=== PATIENT | male | born 1935 | race Two or more races ===

== ENCOUNTER → 2016-06-08 | Outpatient (CLI) | payer MEDICARE ==
[~2016-06-08] MED LIST: AMLODIPINE BESYL5 MG ORAL; DALIRESP500 MCG PO; DIOVAN320 MG ORAL; DYMISTA NASAL S23 GM NS; MORPHINE SULFAT30 M7 PO; PROMETHAZI6.25 MG/1 ORAL; SYMBICORT 1601 PUFFS INH; TAMSULOSIN HCL0.4 MG ORAL; VERAMYST10 GM NS; ZOFRAN2 MG/1 M1 IV
--- NOTE | 2016-06-08 16:18 | Diagnostic Imaging Report ---
Indication: SOB Technique: Two views of the chest Comparison: 10/04/2013 Findings: Lungs and pleural spaces are clear. Heart size is normal. There are degenerative changes of the thoracic spine. There are surgical clips in the region of the gastroesophageal junction Impression: No acute process
== END | disposition home or self-care (01) ==
LOC: RAD 14:38
DX: R05 Cough (principal); R06.02 Shortness of breath
CPT/HCPCS: 71020

== ENCOUNTER 2017-03-09 15:29 | Outpatient (CLI) | payer MEDICARE ==
--- NOTE | 2017-03-09 17:16 | Diagnostic Imaging Report ---
Indication: COUGH Technique: Two views of the chest Comparison: 06/08/2016 Findings: Lungs and pleural space are clear. Heart size is normal. Surgical clips are seen in the region of the gastroesophageal junction, also evident previously. No significant change Impression: No acute process
== END 2017-03-09 17:29 | disposition home or self-care (01) ==
LOC: RAD 15:29
DX: R05 Cough (principal); Z88.8 Allergy status to other drugs, medicaments and biological substances
CPT/HCPCS: 71020

== ENCOUNTER 2017-06-16 16:01 | Inpatient (IN) | payer MEDICARE ==
[~2017-06-16] VITALS: Ht 172.7 cm; Wt 80.7 kg
[2017-06-16 20:00] VITALS: BP 142/79
[2017-06-16] MEDS ORDERED: Promethazine Plain 6.25mg/5ml ORAL PRN (20:15)
[2017-06-16] MEDS: Tamsulosin 0.4mg cap ORAL SCH (22:23)
[2017-06-16] MEDS: Morphine Sulfate 2mg/ml Inj IVP PRN (22:24)
[2017-06-17] VITALS: BP 146/77
[2017-06-17 07:52] LABS: HEMATOCRIT 43.4 % (42.0-52.0); MEAN CORPUSCULAR VOLUME 91 FL (80-99); PLATELET COUNT 139 K/UL (150-450); RED BLOOD COUNT 4.75 M/UL (4.70-6.10); RED CELL DISTRIBUTION WIDTH 12.5 % (11.6-14.8); WHITE BLOOD COUNT 2.6 K/UL (4.8-10.8)
[2017-06-17 08:00] VITALS: BP 123/55
[2017-06-17 08:13] LABS: ALANINE AMINOTRANSFERASE 12 U/L (12-78); ALBUMIN 3.2 G/DL (3.4-5.0); ALKALINE PHOSPHATASE 82 U/L (46-116); ANION GAP 9 mmol/L (5-15); ASPARTATE AMINO TRANSFERASE 13 U/L (15-37); BILIRUBIN,TOTAL 0.4 MG/DL (0.2-1.0); BLOOD UREA NITROGEN 15 mg/dL (7-18); CARBON DIOXIDE 23 MMOL/L (21-32); CHLORIDE 110 MMOL/L (98-107); CREATININE 1.6 MG/DL (0.55-1.30); POTASSIUM 4.1 MMOL/L (3.5-5.1); SODIUM 142 MMOL/L (136-145)
[2017-06-17] MEDS ORDERED: Irbesartan 150mg tablet ORAL SCH (09:00)
[2017-06-17] MEDS: Irbesartan 150mg tablet ORAL SCH (09:30)
[2017-06-17] MEDS: Flonase Nasal Inhaler 16gm NASAL SCH (09:31)
[2017-06-17] MEDS: Morphine Sulfate 2mg/ml Inj IVP PRN (11:27)
[2017-06-17 12:00] VITALS: BP 126/60
[2017-06-17] MEDS ORDERED: Morphine Sulfate 4mg/ml Inj IVP PRN (13:15)
[2017-06-17 16:00] VITALS: BP 121/53
[2017-06-17] MEDS: Morphine Sulfate 4mg/ml Inj IVP PRN ×2 (18:09→22:21)
[2017-06-17 20:00] VITALS: BP 133/70
[2017-06-17] MEDS: Tamsulosin 0.4mg cap ORAL SCH (21:40)
[2017-06-18] VITALS: BP 127/81
[2017-06-18 04:00] VITALS: BP 140/71
[2017-06-18 08:00] VITALS: BP 147/82
--- NOTE | 2017-06-18 08:30 | General Progress Note ---
Assessment/Plan Problem List: (1) PNA (pneumonia) ICD Codes: J18.9 - PNA (pneumonia) SNOMED: 979844736 (2) Diabetes mellitus ICD Codes: E11.9 - Diabetes mellitus SNOMED: 09059034 (3) COPD (chronic obstructive pulmonary disease) with emphysema ICD Codes: J43.8 - COPD (chronic obstructive pulmonary disease) with emphysema SNOMED: 03636035 (4) Back pain ICD Codes: M54.9 - Back pain SNOMED: 577458505 (5) severe neck pain Status: stable, progressing Assessment/Plan iv pain rx adjusted mri neck pain management eval ? pt/ot Subjective ROS Limited/Unobtainable: No Constitutional: Reports: malaise, weakness HEENT: Reports: no symptoms Cardiovascular: Reports: no symptoms Respiratory: Reports: cough Gastrointestinal/Abdominal: Reports: no symptoms Genitourinary: Reports: no symptoms Neurologic/Psychiatric: Reports: no symptoms Endocrine: Reports: no symptoms Hematologic/Lymphatic: Reports: no symptoms Allergies: Coded Allergies: ACETAMINOPHEN (Unverified Allergy, Unknown, Shortness of Breath, 10/03/13) shortness of breath and hives CODEINE (Unverified Allergy, Unknown, Shortness of Breath, 10/03/13) sob and hives HYDROCODONE (Unverified Allergy, Unknown, Shortness of Breath, 10/03/13) shortness of breath and hives All Systems: reviewed and negative except above Subjective no events. w/o complaints. morphine makes pt dizzy. no cp.sob still with severe neck pain. Objective Last 24 Hour Vital Signs Date Time Temp Pulse Resp B/P (MAP) Pulse Ox O2 Delivery O2 Flow Rate FiO2 06/18/17 04:00 97.3 61 20 140/71 99 06/18/17 00:00 97.9 61 21 127/81 98 06/17/17 21:03 63 18 97 Room Air 21 06/17/17 20:58 63 18 97 Room Air 21 06/17/17 20:00 98.3 58 21 133/70 98 06/17/17 16:00 98.1 61 18 121/53 97 06/17/17 12:00 98.2 68 18 126/60 97 06/17/17 09:43 63 18 96 Room Air 21 06/17/17 09:43 63 18 96 Room Air 21 06/17/17 09:30 123/55 06/17/17 09:30 66 123/55 Intake and Output 06/17/17 06/18/17 19:00 07:00 Intake Total 800 ml Balance 800 ml Intake Oral 800 ml # Voids 3 2 Height (Feet): 5 Height (Inches): 8.00 Weight (Pounds): 178 General Appearance: WD/WN, alert Neck: supple, pain on motion, stiff neck, tenderness Cardiovascular: regular rhythm Respiratory/Chest: chest wall non-tender, lungs clear, no respiratory distress Abdomen: normal bowel sounds, non tender, soft Edema: no edema noted Arm (L), no edema noted Arm (R), no edema noted Leg (L), no edema noted Leg (R), no edema noted Pedal (L), no edema noted Pedal (R), no edema noted Generalized SHAD LAGUNAS Jun 18, 2017 08:30
[2017-06-18] MEDS: Irbesartan 150mg tablet ORAL SCH (09:34)
[2017-06-18] MEDS: Flonase Nasal Inhaler 16gm NASAL SCH (09:34)
[2017-06-18] MEDS: HYDROmorphone 1mg/ml Carpuject IVP PRN ×2 (11:03→21:51)
[2017-06-18 12:00] VITALS: BP 144/82
[2017-06-18 16:00] VITALS: BP 124/54
[2017-06-18 20:00] VITALS: BP 143/79
[2017-06-18] MEDS: Tamsulosin 0.4mg cap ORAL SCH (21:52)
[2017-06-18] MEDS: Lactulose 20gm/30ml UDC ORAL PRN (21:52)
--- NOTE | 2017-06-18 23:05 | History and Physical Report ---
DATE OF ADMISSION: 06/16/2017 CHIEF COMPLAINT: Intractable neck pain. HISTORY OF PRESENT ILLNESS: The patient is a pleasant, 81-year-old male. He has a history of COPD, hypertension, and history of renal insufficiency. He has a history of severe degenerative arthritis and spinal stenosis. He presented initially for pain control because of severe intractable neck pain. The patient has a history of cervical spinal stenosis. He has multiple herniated discs. He has had worsening pain that was uncontrolled with oral pain medications. He has had some numbness and weakness in his arms. In light of these worsening symptoms, he is now admitted for further evaluation and care. He denies any falls or recent trauma. PAST MEDICAL HISTORY: As above. PAST SURGICAL HISTORY: Neck surgery. CURRENT MEDICATIONS: Reconciled and reviewed. ALLERGIES: None. SOCIAL HISTORY: The patient is a smoker. No alcohol. No drugs. FAMILY HISTORY: None. REVIEW OF SYSTEMS: GENERAL: No fever or chills. HEENT: Positive headaches and neck pain. CARDIOPULMONARY: No chest pain or shortness of breath. GASTROINTESTINAL: No nausea or vomiting. GENITOURINARY: No urgency or frequency. MUSCULOSKELETAL: Positive joint pains. NEUROLOGIC: No evidence of seizures. PHYSICAL EXAMINATION: VITAL SIGNS: Temperature 98.3 degrees, pulse 66, respirations 20, and blood pressure 123/55. GENERAL: The patient is a well developed and well nourished. NECK: Supple. There is limited range of motion because of pain. HEART: Regular rate and rhythm. LUNGS: Clear. ABDOMEN: Soft, nontender, and nondistended. EXTREMITIES: Without clubbing or cyanosis. LABORATORY DATA: White count was 2 and hemoglobin 15. Sodium 142 and creatinine is 1.6. A1c is 6.6. ASSESSMENT: This is a pleasant male, admitted with complaints of intractable neck pain secondary to degenerative disc disease and arthritis. He has renal insufficiency, hypertension, and chronic obstructive pulmonary disease. PLAN: IV pain medications. MRI of the neck. Pain management consultation for possible epidural. Continue outpatient cardiac regimen. Bill Jackson M.D. DR: Aleisha JOB#: [id number] CC:
[2017-06-19] VITALS: BP 152/78
[2017-06-19 04:00] VITALS: BP 131/62
[2017-06-19] MEDS: Irbesartan 150mg tablet ORAL SCH (08:43)
[2017-06-19] MEDS: HYDROmorphone 1mg/ml Carpuject IVP PRN ×3 (08:44→18:00)
[2017-06-19 08:46] VITALS: BP 159/81
[2017-06-19] MEDS ORDERED: Breo Ellipta 100/25mcg - 14 dose INH SCH (09:00)
[2017-06-19 09:34] LABS: BASOPHILS % (AUTO) 1.4 % (0.0-2.0); LYMPHOCYTES % (AUTO) 34.3 % (20.0-45.0); MEAN CORPUSCULAR VOLUME 93 FL (80-99); MONOCYTES % (AUTO) 10.2 % (1.0-10.0); NEUTROPHILS % (AUTO) 53.1 % (45.0-75.0); PLATELET COUNT 155 K/UL (150-450); RED BLOOD COUNT 4.75 M/UL (4.70-6.10); RED CELL DISTRIBUTION WIDTH 12.4 % (11.6-14.8); WHITE BLOOD COUNT 4.8 K/UL (4.8-10.8)
[2017-06-19 09:47] LABS: ALANINE AMINOTRANSFERASE 35 U/L (12-78); ALBUMIN 3.5 G/DL (3.4-5.0); ALKALINE PHOSPHATASE 110 U/L (46-116); ANION GAP 5 mmol/L (5-15); ASPARTATE AMINO TRANSFERASE 22 U/L (15-37); BILIRUBIN,TOTAL 0.7 MG/DL (0.2-1.0); BLOOD UREA NITROGEN 19 mg/dL (7-18); CALCIUM 9.3 MG/DL (8.5-10.1); CARBON DIOXIDE 29 MMOL/L (21-32); CHLORIDE 104 MMOL/L (98-107); CREATININE 1.7 MG/DL (0.55-1.30); POTASSIUM 4.3 MMOL/L (3.5-5.1); SODIUM 138 MMOL/L (136-145)
[2017-06-19 11:49] VITALS: BP 119/56
--- NOTE | 2017-06-19 12:53 | General Progress Note ---
Assessment/Plan Problem List: (1) PNA (pneumonia) ICD Codes: J18.9 - PNA (pneumonia) SNOMED: 103009933 (2) Diabetes mellitus ICD Codes: E11.9 - Diabetes mellitus SNOMED: 00342667 (3) COPD (chronic obstructive pulmonary disease) with emphysema ICD Codes: J43.8 - COPD (chronic obstructive pulmonary disease) with emphysema SNOMED: 83895725 (4) Back pain ICD Codes: M54.9 - Back pain SNOMED: 334249863 (5) severe neck pain Status: stable, progressing Assessment/Plan iv pain rx adjusted mri neck pain management eval ? cont resp care pt/ot Subjective ROS Limited/Unobtainable: No Constitutional: Reports: malaise, weakness HEENT: Reports: no symptoms Cardiovascular: Reports: no symptoms Respiratory: Reports: no symptoms Gastrointestinal/Abdominal: Reports: no symptoms Genitourinary: Reports: no symptoms Neurologic/Psychiatric: Reports: numbness, paresthesia, pre-existing deficit Endocrine: Reports: no symptoms Hematologic/Lymphatic: Reports: anemia Allergies: Coded Allergies: ACETAMINOPHEN (Unverified Allergy, Unknown, Shortness of Breath, 10/03/13) shortness of breath and hives CODEINE (Unverified Allergy, Unknown, Shortness of Breath, 10/03/13) sob and hives HYDROCODONE (Unverified Allergy, Unknown, Shortness of Breath, 10/03/13) shortness of breath and hives All Systems: reviewed and negative except above Subjective still with severe pain. on iv pain meds. weakness and numbness in left arm- chronic. Objective Last 24 Hour Vital Signs Date Time Temp Pulse Resp B/P (MAP) Pulse Ox O2 Delivery O2 Flow Rate FiO2 06/19/17 11:49 97.9 64 19 119/56 97 06/19/17 08:46 97.7 70 19 159/81 98 06/19/17 08:43 131/62 06/19/17 08:43 68 131/62 06/19/17 08:14 68 18 97 Room Air 21 06/19/17 08:12 68 18 97 Room Air 21 06/19/17 04:00 98 Room Air 06/19/17 04:00 97.6 68 21 131/62 98 06/19/17 00:00 97.9 73 21 152/78 97 06/19/17 00:00 97 Room Air 06/18/17 20:52 70 18 98 Room Air 21 06/18/17 20:51 70 18 98 Room Air 21 06/18/17 20:00 98.2 66 21 143/79 98 06/18/17 20:00 98 Room Air 06/18/17 16:00 97.9 59 18 124/54 Room Air Intake and Output 06/18/17 06/19/17 19:00 07:00 Intake Total 1400 ml Balance 1400 ml Intake Oral 1400 ml # Voids 12 4 Laboratory Tests 06/19/17 08:50: White Blood Count 4.8, Red Blood Count 4.75, Hemoglobin 15.0, Hematocrit 44.0, Mean Corpuscular Volume 93, Mean Corpuscular Hemoglobin 31.6H, Mean Corpuscular Hemoglobin Concent 34.1, Red Cell Distribution Width 12.4, Platelet Count 155, Mean Platelet Volume 8.5, Neutrophils (%) (Auto) 53.1, Lymphocytes (%) (Auto) 34.3, Monocytes (%) (Auto) 10.2H, Eosinophils (%) (Auto) 1.0, Basophils (%) ( Auto) 1.4, Sodium Level 138, Potassium Level 4.3, Chloride Level 104, Carbon Dioxide Level 29, Anion Gap 5, Blood Urea Nitrogen 19H, Creatinine 1.7H, Estimat Glomerular Filtration Rate , Glucose Level 128H, Calcium Level 9.3, Total Bilirubin 0.7, Aspartate Amino Transf (AST/SGOT) 22, Alanine Aminotransferase (ALT/SGPT) 35, Alkaline Phosphatase 110, Total Protein 7.0, Albumin 3.5, Globulin 3.5, Albumin/Globulin Ratio 1.0 Height (Feet): 5 Height (Inches): 8.00 Weight (Pounds): 178 Objective General Appearance: WD/WN, alert Neck: supple, pain on motion, stiff neck, tenderness Cardiovascular: regular rhythm Respiratory/Chest: chest wall non-tender, lungs clear, no respiratory distress Abdomen: normal bowel sounds, non tender, soft Edema: no edema noted Arm (L), no edema noted Arm (R), no edema noted Leg (L), no edema noted Leg (R), no edema noted Pedal (L), no edema noted Pedal (R), no edema noted Generalized SHAD LAGUNAS Jun 19, 2017 12:53
[2017-06-19] MEDS: Lactulose 20gm/30ml UDC ORAL PRN ×2 (12:56→18:14)
--- NOTE | 2017-06-19 13:16 | Diagnostic Imaging Report ---
Indication: 81-year-old male inpatient with severe neck pain, history of cervical spinal stenosis and prior spinal surgery Technique: Sagittal T1 FLAIR PROPELLER, sagittal T2 PROPELLOR, sagittal STIR, axial T2 PROPELLER, axial 3D COSMIC ASPIR images were obtained through the cervical spine Comparison: none Findings: Anterior fusion hardware with intervertebral screws are seen at C3, C4, C5. The hardware does Bridgette minimal susceptibility artifact which could obscure pathology. There is evidence of complete ankylosis of the C3-4 and C4-5 discs. The bony alignment is normal. The vertebral body marrow signal is normal. There is marked hypertrophy of the atlantoaxial ligament and possibly some erosion of the tip of the odontoid. Posterior to the C5 vertebral body. There are some small foci of high signal within the cord. The remainder of the intrinsic cord signal is normal At C2-3, there is posterior disc protrusion/osteophyte complex. This results in mild narrowing of the spinal canal, which is narrowed to an minimal 8 mm AP diameter. This is exacerbated by short pedicles. This is also exacerbated by ligamentum flavum hypertrophy. There is mild right, moderate to severe left neural foraminal stenosis at this level, predominantly due to facet arthrosis. Posterior to C3, C4, C5, there is diffuse narrowing of the spinal canal, which measures approximately 7 mm in AP diameter this area. This is predominantly due to short pedicles resulting in congenital canal narrowing, exacerbated to a slight extent by ligamentum flavum hypertrophy. This results in impingement upon the cord. No cerebrospinal fluid is seen surrounding the cord at these levels. Due to the prior surgery, no disc protrusion is demonstrated. At C3-4, there is mild bilateral neural foraminal stenosis due to facet arthrosis. At C4-5, there is minimal bilateral neural foraminal stenosis. At C5-6, the disc space is narrowed. There is posterior broad-based disc protrusion, mild, with associated osteophytes. This, in combination with the short pedicles results in mild narrowing of the spinal canal, to 8 mm AP dimension.. There is mild left neural foraminal stenosis. At C6-7, no significant disc bulge or protrusion. The disc space is preserved. The spinal canal remains narrowed due to short pedicles, measures proximally 8 mm AP dimension. There is mild bilateral neural foraminal stenosis at this level. At C7-T1, there is very mild circumferential annular bulge. The spinal canal is mildly narrowed at this level, measuring between 8 and 9 mm AP dimension. At this level, unlikely more superior levels, small amount of cerebrospinal fluid is seen surrounding the cord. The included extraspinal soft tissues are unremarkable. Due to the disc bulge as well as ligamentum flavum hypertrophy. Impression: Spinal stenosis extending from the level of the C2-3 disc to the bottom of C7, as described, with evidence of impingement of the cord between C3 and C5.. 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 Postsurgical changes as described, with evidence of prior anterior fusion of the C3, C4, C5. Apparent successful ankylosis of the discs. Foci of high signal within the cord posterior to the C5 vertebral body. Suspect on the basis of myelomalacia secondary to spinal stenosis. Other etiologies such as demyelinating disease also possible Multifocal neural foraminal stenoses, as detailed above Hypertrophy of the anterior atlantoaxial ligament. Possible associated erosion of the odontoid. This could indicate inflammatory arthropathy. This would be better characterized on CT if clinically indicated
[2017-06-19] MEDS: Flonase Nasal Inhaler 16gm NASAL SCH (15:40)
[2017-06-19 16:00] VITALS: BP 144/73
[2017-06-19 20:00] VITALS: BP 142/82
[2017-06-19] MEDS: Tamsulosin 0.4mg cap ORAL SCH (21:23)
[2017-06-20] VITALS: BP 155/54
[2017-06-20 04:00] VITALS: BP 158/70
[2017-06-20 08:00] VITALS: BP 143/91
[2017-06-20] MEDS: Flonase Nasal Inhaler 16gm NASAL SCH (09:00)
[2017-06-20] MEDS: Irbesartan 150mg tablet ORAL SCH (09:01)
[2017-06-20] MEDS: HYDROmorphone 1mg/ml Carpuject IVP PRN (09:46)
--- NOTE | 2017-06-20 10:11 | General Progress Note ---
Assessment/Plan Problem List: (1) PNA (pneumonia) ICD Codes: J18.9 - PNA (pneumonia) SNOMED: 016432695 (2) Diabetes mellitus ICD Codes: E11.9 - Diabetes mellitus SNOMED: 55419729 (3) COPD (chronic obstructive pulmonary disease) with emphysema ICD Codes: J43.8 - COPD (chronic obstructive pulmonary disease) with emphysema SNOMED: 10189778 (4) Back pain ICD Codes: M54.9 - Back pain SNOMED: 261735686 (5) severe neck pain Status: stable Assessment/Plan iv pain rx adjusted mri neck reviewed spine eval at [facility] at outpt cont resp care pt/ot Subjective ROS Limited/Unobtainable: No Constitutional: Reports: malaise, weakness HEENT: Reports: no symptoms Cardiovascular: Reports: no symptoms Respiratory: Reports: no symptoms Gastrointestinal/Abdominal: Reports: no symptoms Genitourinary: Reports: no symptoms Neurologic/Psychiatric: Reports: no symptoms Endocrine: Reports: no symptoms Hematologic/Lymphatic: Reports: anemia Allergies: Coded Allergies: ACETAMINOPHEN (Unverified Allergy, Unknown, Shortness of Breath, 10/03/13) shortness of breath and hives CODEINE (Unverified Allergy, Unknown, Shortness of Breath, 10/03/13) sob and hives HYDROCODONE (Unverified Allergy, Unknown, Shortness of Breath, 10/03/13) shortness of breath and hives All Systems: reviewed and negative except above Subjective still with severe pain. on iv pain meds. weakness and numbness in left arm- chronic. mri noted. has not seen spine as recommended. Objective Last 24 Hour Vital Signs Date Time Temp Pulse Resp B/P (MAP) Pulse Ox O2 Delivery O2 Flow Rate FiO2 06/20/17 09:01 143/91 06/20/17 09:00 86 143/91 06/20/17 08:00 98.1 86 20 143/91 95 06/20/17 04:00 98.4 70 20 158/70 95 06/20/17 00:00 97 Room Air 06/20/17 00:00 98.1 67 21 155/54 97 06/19/17 20:17 71 18 98 Room Air 21 06/19/17 20:16 71 18 98 Room Air 21 06/19/17 20:00 96 Room Air 06/19/17 20:00 97.0 66 20 142/82 96 06/19/17 18:30 97.8 06/19/17 16:00 97.8 74 19 144/73 96 06/19/17 11:49 97.9 64 19 119/56 97 Intake and Output 06/19/17 06/20/17 19:00 07:00 Intake Total 560 ml Balance 560 ml Intake Oral 560 ml # Voids 5 2 # Bowel Movements 2 3 Height (Feet): 5 Height (Inches): 8.00 Weight (Pounds): 178 Objective General Appearance: WD/WN, alert Neck: supple, pain on motion, stiff neck, tenderness Cardiovascular: regular rhythm Respiratory/Chest: chest wall non-tender, lungs clear, no respiratory distress Abdomen: normal bowel sounds, non tender, soft Edema: no edema noted Arm (L), no edema noted Arm (R), no edema noted Leg (L), no edema noted Leg (R), no edema noted Pedal (L), no edema noted Pedal (R), no edema noted Generalized SHAD LAGUNAS Jun 20, 2017 10:10
[2017-06-20 12:00] VITALS: BP 117/57
[2017-06-20 16:09] VITALS: BP 125/57
[2017-06-20] MEDS ORDERED: FLONASE1 SPRAYS NASAL (16:41)
[2017-06-20] MEDS ORDERED: IRBESARTAN300 MG ORAL (16:43)
[2017-06-20] MEDS ORDERED: LACTULOSE20 GM/301 ORAL (16:45)
[2017-06-20] MEDS ORDERED: PROTONIX40 MG ORAL (16:45)
[2017-06-20] MEDS ORDERED: TAMSULOSIN HCL0.4 MG ORAL (16:47)
--- NOTE | 2017-06-22 11:33 | Discharge Summary ---
Discharge Summary Hospital Course Date of Admission Jun 16, 2017 at 18:50 Date of Discharge Jun 20, 2017 at 18:58 Admitting Diagnosis HPI Mihir Cruz is a 81 year old male who was admitted on Jun 16, 2017 at 18:50 for Severe Neck Pain Hospital Course [id number] Discharge Discharge Disposition Patient was discharged to Home (01) Discharge Diagnoses: Davina Beck NP Jun 22, 2017 11:33
--- NOTE | 2017-06-23 04:00 | Discharge Summary 2 SIG ---
DATE OF ADMISSION: 06/16/2017 DATE OF DISCHARGE: 06/20/2017 BRIEF HOSPITAL COURSE: The patient is a pleasant 81-year-old male with a history of COPD, hypertension, and renal insufficiency. He has history of severe degenerative arthritis and spinal stenosis. He presented initially for pain control because of severe intractable neck pain. He had worsening of symptoms uncontrolled with oral pain medications. He had numbness and weakness in his arms. Because of worsening symptoms, he was admitted for further evaluation and care. He was given IV pain medications. MRI of the cervical spine showed spinal stenosis extending from the level of C2-C3 disc to the bottom of C7 with evidence of impingement of the cord between C3 and C5. Pain medications were adjusted. He was given physical therapy and occupational therapy. He was then advised to follow up for a spine evaluation at [facility] as outpatient. FINAL DIAGNOSES: 1. Intractable severe neck pain. 2. Chronic obstructive pulmonary disease. 3. Diabetes mellitus. DISPOSITION: The patient was discharged to acute rehab [facility]. DISCHARGE MEDICATIONS: Refer to medication list. Bill Jackson M.D. I have been assigned to dictate discharge summary on this account and I was not involved in the patient's management. Davina Beck N.P. DR: Jesus Manuel JOB#: [id number] CC:
== END 2017-06-20 18:58 | disposition home or self-care (01) | DRG 551 ==
LOC: 4E 18:50
DX: M50.30 Other cervical disc degeneration, unspecified cervical region (principal); J18.9 Pneumonia, unspecified organism; M48.02 Spinal stenosis, cervical region; E11.9 Type 2 diabetes mellitus without complications; J43.9 Emphysema, unspecified; M54.9 Dorsalgia, unspecified; F17.200 Nicotine dependence, unspecified, uncomplicated; Z88.6 Allergy status to analgesic agent; M46.92 Unspecified inflammatory spondylopathy, cervical region
CPT/HCPCS: 36415; 72141; 80053; 83036; 85007; 85025; 85651; 94640; J2405

== ENCOUNTER 2017-06-25 12:41 | Inpatient (IN) | payer MEDICARE ==
[~2017-06-25] VITALS: Ht 172.7 cm; Wt 81.2 kg
[~2017-06-25 12:41] MED LIST changes: +FLONASE1 SPRAYS NASAL; +IRBESARTAN300 MG ORAL; +LACTULOSE20 GM/301 ORAL; +PROTONIX40 MG ORAL
[2017-06-25] MEDS ORDERED: Lactulose 20gm/30ml UDC ORAL PRN (22:15)
[2017-06-25] MEDS: cefTRIAXone 1 GM in D5W 55 ML IVPB SCH (23:17)
[2017-06-25] MEDS: HYDROmorphone 1mg/ml Carpuject IVP PRN (23:26)
[2017-06-26] VITALS: BP 146/83
[2017-06-26 03:49] VITALS: BP 146/70
[2017-06-26 08:00] VITALS: BP 151/75
[2017-06-26 08:28] LABS: HEMATOCRIT 42.2 % (42.0-52.0); HEMOGLOBIN 14.4 G/DL (14.2-18.0); MEAN CORPUSCULAR VOLUME 92 FL (80-99); PLATELET COUNT 125 K/UL (150-450); RED BLOOD COUNT 4.57 M/UL (4.70-6.10); RED CELL DISTRIBUTION WIDTH 12.1 % (11.6-14.8); WHITE BLOOD COUNT 2.9 K/UL (4.8-10.8)
[2017-06-26] MEDS: HYDROmorphone 1mg/ml Carpuject IVP PRN ×2 (08:39→16:50)
[2017-06-26 09:15] LABS: ALANINE AMINOTRANSFERASE 29 U/L (12-78); ALBUMIN 2.9 G/DL (3.4-5.0); ALBUMIN/GLOBULIN RATIO 0.9 (1.0-2.7); ALKALINE PHOSPHATASE 90 U/L (46-116); ANION GAP 8 mmol/L (5-15); ASPARTATE AMINO TRANSFERASE 29 U/L (15-37); BILIRUBIN,TOTAL 0.3 MG/DL (0.2-1.0); BLOOD UREA NITROGEN 15 mg/dL (7-18); CALCIUM 8.7 MG/DL (8.5-10.1); CARBON DIOXIDE 28 MMOL/L (21-32); CHLORIDE 105 MMOL/L (98-107); CREATININE 1.6 MG/DL (0.55-1.30); POTASSIUM 4.1 MMOL/L (3.5-5.1); SODIUM 141 MMOL/L (136-145)
[2017-06-26] MEDS ORDERED: Tubing IV Secondary IV ONE (10:08)
[2017-06-26] MEDS ORDERED: NS 500ML ONE (10:08)
[2017-06-26] MEDS: Irbesartan 150mg tablet ORAL SCH (10:09)
[2017-06-26] MEDS: Promethazine Plain 6.25mg/5ml ORAL SCH ×3 (10:09→17:44)
[2017-06-26] MEDS: Flonase Nasal Inhaler 16gm NASAL SCH (10:10)
[2017-06-26] MEDS: Solu-MEDROL 40mg Inj IVP SCH ×2 (10:15→20:40)
[2017-06-26] MEDS: Albuterol/Ipratropium 3ml neb HHN SCH ×3 (11:16→23:59)
--- NOTE | 2017-06-26 11:19 | Diagnostic Imaging Report ---
Indication: Cough Comparison: 03/09/2017 A single view chest radiograph was obtained. Findings: Cardiomediastinal appearance is within normal limits for age. Pulmonary vascularity is appropriate. The diaphragmatic contour is smooth and costophrenic angles are sharp. No pleural effusions are identified. The bones are osteopenic. Impression: No acute findings
[2017-06-26 12:00] VITALS: BP 143/76
[2017-06-26 16:02] VITALS: BP 143/84
--- NOTE | 2017-06-26 16:15 | History and Physical Report ---
DATE OF ADMISSION: 06/25/2017 CHIEF COMPLAINT: COPD exacerbation, possible pneumonia, possible influenza. HISTORY OF PRESENT ILLNESS: The patient is a pleasant 81-year-old male. He has a history of chronic kidney disease, hypertension, and borderline diabetes. He has a history of cervical radiculopathy and spinal stenosis. He presented from home with complaints of several days of progressive cough, shortness of breath, fevers and chills. He did not improve with [id number] treatment at home and requested admission for further treatment. He is currently wheezing. He has had subjective fevers and chills, nonstop cough. PAST MEDICAL HISTORY: As above. PAST SURGICAL HISTORY: Neck surgery and shoulder surgery. CURRENT MEDICATIONS: Reconciled and reviewed. ALLERGIES: Acetaminophen, codeine and hydrocodone. FAMILY HISTORY: Noncontributory. SOCIAL HISTORY: The patient is a smoker. No alcohol. No drugs. REVIEW OF SYSTEMS: GENERAL: Positive for fevers and chills, but no night sweats. HEENT: No headaches or visual changes. CARDIOPULMONARY: No chest pain. Positive shortness of breath, cough and congestion. GASTROINTESTINAL: No nausea or vomiting. GENITOURINARY: No urgency or frequency. MUSCULOSKELETAL: History of chronic back pain and neck pain. NEUROLOGIC: No evidence of seizures. PHYSICAL EXAMINATION: GENERAL: The patient is a well-developed male, in no apparent distress. He appears acutely ill. VITAL SIGNS: Temperature 99 degrees, pulse 78, respiratory rate 18, and blood pressure 146/83. NECK: Supple. There is no jugular venous distention. HEART: Regular rate and rhythm. LUNGS: Significant diffuse rhonchi and wheezes. ABDOMEN: Soft, nontender, and nondistended. EXTREMITIES: Without clubbing, cyanosis, or edema. LABORATORY AND DIAGNOSTIC DATA: X-rays are currently pending. ASSESSMENT: This is a pleasant male, admitted with complaints of chronic obstructive pulmonary disease exacerbation, possible pneumonia, cannot rule out influenza. He has a history of hypertension, diabetes, and chronic kidney disease. PLAN: Gentle hydration. IV antibiotics. Empiric treatment for influenza. We will follow up influenza antibody screen. Continue current pain regimen. Continue breathing treatments and short course of intravenous steroids for chronic obstructive pulmonary disease exacerbation. Bill Jackson M.D. DR: DELROY JOB#: [id number] CC:
--- NOTE | 2017-06-26 20:30 | Consultation ---
DATE OF CONSULTATION: 06/26/2017 PULMONARY CONSULTATION CONSULTING PHYSICIAN: Ronak Colon M.D. REFERRING PHYSICIAN: Bill Jackson M.D. REASON FOR CONSULTATION: Shortness of breath and respiratory insufficiency. HISTORY OF PRESENT ILLNESS: This is an 81-year-old male well known to me. The patient presents with increasing congestion and shortness of breath. The patient has a longstanding history of chronic obstructive pulmonary disease and is not fully compliant with his inhalers. The patient also continues to smoke hookah. The patient noted to have cough with brown sputum production. The patient notes significant symptoms over the past several days. The patient is now admitted for ongoing care and management. The patient was started on antibiotics and I was called to assist and evaluate further. The patient's influenza swab was negative. The patient's care discussed and reviewed with the patient. No ill contacts noted. The patient's as well was admitted and has similar illness and also very short of breath. PAST MEDICAL HISTORY: Notable for hypertension, chronic obstructive pulmonary disease, legal blindness, reflux disease, and benign prostatic hyperplasia. MEDICATIONS: Reviewed. ALLERGIES: Reviewed. SOCIAL HISTORY: The patient continues to smoke as outlined and is currently living with his . REVIEW OF SYSTEMS: Otherwise negative with the exception of the above. Low-grade fevers noted mostly tactile. PHYSICAL EXAMINATION: GENERAL: A well-developed male, appears to be ill. VITAL SIGNS: Pulse 67, respirations 18, and sats 96% on room air. Blood pressure 151/75. HEENT: Fairly negative. However, the oropharynx is injected. No thrush. The patient . LUNGS: With scattered wheezes and rhonchi noted diffusely. CARDIAC: Normal S1, S2. Regular rate and rhythm without murmurs, rubs, or gallops. ABDOMEN: Soft, nontender, and nondistended. EXTREMITIES: No cyanosis or clubbing. No edema. NEUROLOGIC: Grossly nonfocal. The patient does recognize me. LABORATORY DATA: Reviewed. White count 2.9, hematocrit 42, and platelets 125,000. Chemistries noted. Creatinine is 1.6, otherwise negative. Albumin is 2.9. IMPRESSION: 1. Pulmonary congestion. 2. Possible pneumonia. 3. Negative flu. 4. Chronic obstructive pulmonary disease with acute exacerbation. 5. Shortness of breath with respiratory insufficiency. 6. Evidence of leukopenia as well as thrombocytopenia of unclear etiology. 7. Hypertension per history. 8. Benign prostatic hyperplasia per history. RECOMMENDATIONS: 1. Supportive care. 2. Nebulized therapy. 3. Resume home medications. 4. Intravenous Solu-Medrol. 5. Intravenous antibiotics. 6. Likely can discontinue Tamiflu. 7. Monitor clinically. 8. Follow up imaging. DISPOSITION: Once improved, care discussed and reviewed with the patient's primary M.D. and I will follow and assist with disposition once improved. Ronak Colon M.D. DR: BRAYAN JOB#: [id number] CC:
[2017-06-26] MEDS ORDERED: Tamsulosin 0.4mg cap ORAL SCH (21:00)
[2017-06-26] MEDS: cefTRIAXone 1 GM in D5W 55 ML IVPB SCH (21:20)
[2017-06-27 00:06] VITALS: BP 128/59
[2017-06-27 04:00] VITALS: BP 144/64
[2017-06-27] MEDS: Albuterol/Ipratropium 3ml neb HHN SCH ×2 (07:28→13:06)
[2017-06-27 08:07] VITALS: BP 140/79
[2017-06-27] MEDS: Irbesartan 150mg tablet ORAL SCH (08:44)
[2017-06-27] MEDS: Flonase Nasal Inhaler 16gm NASAL SCH (08:44)
[2017-06-27] MEDS: Promethazine Plain 6.25mg/5ml ORAL SCH ×2 (08:44→12:51)
[2017-06-27] MEDS: HYDROmorphone 1mg/ml Carpuject IVP PRN ×2 (08:45→12:38)
[2017-06-27] MEDS: Solu-MEDROL 40mg Inj IVP SCH (08:45)
[2017-06-27] MEDS ORDERED: Tubing IV Secondary IV ONE (11:26)
[2017-06-27 12:00] VITALS: BP 115/60
--- NOTE | 2017-06-27 12:59 | Pulmonology Progress Note ---
Assessment/Plan Assessment/Plan IMPRESSION: 1. Pulmonary congestion. 2. Respiratory infection 3. Negative flu. 4. Chronic obstructive pulmonary disease with acute exacerbation. 5. Shortness of breath with respiratory insufficiency. 6. Evidence of leukopenia as well as thrombocytopenia of unclear etiology. 7. Hypertension per history. 8. Benign prostatic hyperplasia per history. PLAN continue same maintain steroids antibiotics check sputum daily inhalers not ready for dc impression, plan, and exam edited and reviewed in detail care discussed with RN Subjective Allergies: Coded Allergies: ACETAMINOPHEN (Unverified Allergy, Unknown, Shortness of Breath, 10/03/13) shortness of breath and hives CODEINE (Unverified Allergy, Unknown, Shortness of Breath, 10/03/13) sob and hives HYDROCODONE (Unverified Allergy, Unknown, Shortness of Breath, 10/03/13) shortness of breath and hives Subjective noted thick sputum still wheezing and congested Objective Last 24 Hour Vital Signs Date Time Temp Pulse Resp B/P (MAP) Pulse Ox O2 Delivery O2 Flow Rate FiO2 06/27/17 12:00 97.7 81 18 115/60 97 Room Air 06/27/17 10:01 90 18 99 Room Air 06/27/17 10:01 91 18 98 Room Air 06/27/17 08:44 140/79 06/27/17 08:44 108 140/79 06/27/17 08:07 97.9 108 18 140/79 95 Room Air 06/27/17 07:39 86 18 100 Room Air 06/27/17 07:29 21 06/27/17 07:29 86 16 100 Room Air 06/27/17 04:00 97.3 86 19 144/64 96 Room Air 06/27/17 00:07 84 18 100 Room Air 21 06/27/17 00:06 97.2 71 20 128/59 100 Room Air 06/27/17 00:00 21 06/26/17 23:59 73 18 96 Room Air 21 06/26/17 19:45 88 18 100 Room Air 21 06/26/17 19:45 79 18 98 Room Air 21 06/26/17 19:40 81 18 98 Room Air 21 06/26/17 19:37 21 06/26/17 19:35 75 18 97 Room Air 21 06/26/17 16:02 97.9 79 20 143/84 96 Intake and Output 06/26/17 06/27/17 19:00 07:00 Intake Total 180 ml Balance 180 ml Intake Oral 180 ml # Voids 3 3 # Bowel Movements 2 2 Objective GENERAL: A well-developed male, appears to be ill. HEENT: Fairly negative. injected pharynx LUNGS: With scattered wheezes and rhonchi noted diffusely. reduced air entry CARDIAC: Normal S1, S2. Regular rate and rhythm without murmurs, rubs, or gallops. ABDOMEN: Soft, nontender, and nondistended. EXTREMITIES: No cyanosis or clubbing. No edema. NEUROLOGIC: Grossly nonfocal. The patient does recognize me. Microbiology Date/Time Source Procedure Growth Status 06/26/17 05:30 Nasal Nares Influenza Types A,B Antigen (MATT) - Final Complete Current Medications Medications (Trade) Dose Ordered Sig/Andrew Route PRN Reason Start Time Stop Time Status Last Admin Dose Admin Albuterol/ Ipratropium (Albuterol/ Ipratropium) 3 ml Q6HRT HHN 06/26/17 13:00 07/01/17 12:59 06/27/17 07:28 Amlodipine Besylate (Norvasc) 5 mg DAILY ORAL 06/26/17 09:00 07/26/17 08:59 06/27/17 08:44 Budesonide/ Formoterol Fumarate (Symbicort 160/ 4.5) 2 puff TWICE A DAY INH 06/26/17 09:00 07/26/17 08:59 06/27/17 10:05 Ceftriaxone Sodium 1 gm/ Dextrose 55 ml @ 110 mls/hr Q24H IVPB 06/25/17 22:15 07/02/17 22:14 06/26/17 21:20 Fluticasone Propionate (Flonase) 1 spray DAILY NASAL 06/26/17 09:00 07/26/17 08:59 06/27/17 08:44 Hydromorphone HCl (Dilaudid) 1 mg Q4H PRN IVP For Pain 06/25/17 22:15 07/02/17 22:14 06/27/17 12:38 Irbesartan (Avapro) 300 mg DAILY ORAL 06/26/17 09:00 07/26/17 08:59 06/27/17 08:44 Lactulose (Cephulac) 20 gm PRN PRN ORAL Constipation 06/25/17 22:15 07/25/17 22:14 Methylprednisolone Sodium Succinate (Solu-MEDROL) 40 mg EVERY 12 HOURS IVP 06/26/17 09:30 07/26/17 09:29 06/27/17 08:45 Ondansetron HCl (Zofran) 4 mg Q6H PRN IVP Nausea & Vomiting 06/25/17 22:15 07/25/17 22:14 06/27/17 08:43 Oseltamivir Phosphate (Tamiflu) 30 mg TWICE A DAY ORAL 06/26/17 09:00 07/01/17 08:59 06/27/17 08:44 Pantoprazole (Protonix) 40 mg DAILY ORAL 06/26/17 09:00 07/26/17 08:59 06/27/17 08:44 Promethazine HCl (Phenergan Plain) 6.25 mg TID ORAL 06/26/17 09:00 07/26/17 08:59 06/27/17 12:51 Tamsulosin HCl (Flomax) 0.4 mg BEDTIME ORAL 06/26/17 21:00 07/26/17 20:59 06/26/17 20:40 MARTI RICHARDSON Jun 27, 2017 12:59
[2017-06-27] MEDS ORDERED: cefTRIAXone 1 GM in NS 55 ML IVPB SCH (22:00)
[2017-06-28] MEDS ORDERED: Breo Ellipta 200/25mcg-14 dose INH SCH (09:00)
--- NOTE | 2017-06-29 11:24 | Discharge Summary ---
Discharge Summary Hospital Course Date of Admission Jun 25, 2017 at 19:54 Date of Discharge Jun 27, 2017 at 14:15 Admitting Diagnosis HPI Mihir Cruz is a 81 year old male who was admitted on Jun 25, 2017 at 19:54 for Flue,Like Symptoms Hospital Course [id number] Discharge Discharge Disposition Patient was discharged to [facility] H[facility]Unit(62) Discharge Diagnoses: Davina Beck NP Jun 29, 2017 11:24
--- NOTE | 2017-06-30 02:01 | Discharge Summary 2 SIG ---
DATE OF ADMISSION: 06/25/2017 DATE OF DISCHARGE: 06/27/2017 CIRCUIT RIDER: Ronak Colon M.D. BRIEF HOSPITAL COURSE: The patient is an 81-year-old male with a history of chronic kidney disease, hypertension, and borderline diabetes. He has a history of cervical radiculopathy and spinal stenosis. He presented from home with complaints of several days of progressive cough, shortness of breath, fevers, and chills. He did not improve with sare-ahl-[id number] treatment at home and requested admission for further treatment. He was wheezing and had nonstop cough and had subjective fevers. He was admitted to medical floor for acute COPD exacerbation with possible pneumonia, possible influenza. He was given gentle hydration. Chest x-ray showed no acute findings. He was started empirically on Tamiflu and Rocephin. Influenza screen was negative. He was given methylprednisolone 40 mg IV q.12 h. and was continued on Breo and Spiriva inhalers. Sputum showed normal upper respiratory claudia. He was given PT/OT. He was eventually discharged to [facility]. FINAL DIAGNOSES: 1. Acute chronic obstructive pulmonary disease exacerbation. 2. Respiratory infection. 3. Pulmonary congestion. 4. Hypertension. 5. Diabetes. 6. Chronic kidney disease. 7. Benign prostatic hypertrophy. DISPOSITION: The patient was discharged to [facility]. DISCHARGE MEDICATIONS: Refer to medication list. Bill Jackson M.D. I have been assigned to dictate discharge summary on this account and I was not involved in the patient's management. Davina Beck N.P. DR: LANCE JOB#: [id number] CC: MUSA
== END 2017-06-27 14:15 | disposition short-term general hospital (02) | DRG 190 ==
LOC: 4W 19:54
DX: J44.0 Chronic obstructive pulmonary disease with (acute) lower respiratory infection (principal); J18.9 Pneumonia, unspecified organism; D69.6 Thrombocytopenia, unspecified; E11.22 Type 2 diabetes mellitus with diabetic chronic kidney disease; R06.89 Other abnormalities of breathing; J44.1 Chronic obstructive pulmonary disease with (acute) exacerbation; I12.9 Hypertensive chronic kidney disease with stage 1 through stage 4 chronic kidney disease, or unspecified chronic kidney disease; N18.9 Chronic kidney disease, unspecified; N40.0 Benign prostatic hyperplasia without lower urinary tract symptoms; Z88.6 Allergy status to analgesic agent; F17.200 Nicotine dependence, unspecified, uncomplicated; M54.12 Radiculopathy, cervical region; K21.9 Gastro-esophageal reflux disease without esophagitis; H54.8 Legal blindness, as defined in USA
CPT/HCPCS: 36415; 71045; 80053; 85007; 85025; 86710; 87070; 87205; 94640; 94664; J2405; J7620

== ENCOUNTER 2018-10-16 10:30 | Inpatient (IN) | payer MEDICARE ==
[~2018-10-16] VITALS: Ht 172.7 cm; Wt 78.9 kg
[2018-10-16 20:30] VITALS: BP 119/65
[2018-10-16] MEDS ORDERED: METFORMIN HCL500 M1 ORAL (20:59)
[2018-10-16] MEDS ORDERED: Lactulose 20gm/30ml UDC ORAL PRN (21:15)
[2018-10-16] MEDS ORDERED: Milk of Magnesia 30ml Ud ORAL PRN (21:15)
[2018-10-16 21:34] LABS: BASOPHILS % (AUTO) 0.9 % (0.0-2.0); EOSINOPHILS % (AUTO) 1.6 % (0.0-3.0); HEMATOCRIT 42.1 % (42.0-52.0); HEMOGLOBIN 13.9 G/DL (14.2-18.0); LYMPHOCYTES % (AUTO) 37.8 % (20.0-45.0); MEAN CORPUSCULAR VOLUME 85 FL (80-99); MONOCYTES % (AUTO) 9.7 % (1.0-10.0); PLATELET COUNT 171 K/UL (150-450); RED BLOOD COUNT 4.95 M/UL (4.70-6.10); RED CELL DISTRIBUTION WIDTH 13.4 % (11.6-14.8); WHITE BLOOD COUNT 4.3 K/UL (4.8-10.8)
[2018-10-16 22:00] LABS: ALANINE AMINOTRANSFERASE 26 U/L (12-78); ALBUMIN 3.2 G/DL (3.4-5.0); ALKALINE PHOSPHATASE 94 U/L (46-116); ANION GAP 6 mmol/L (5-15); ASPARTATE AMINO TRANSFERASE 18 U/L (15-37); BILIRUBIN,TOTAL 0.4 MG/DL (0.2-1.0); BLOOD UREA NITROGEN 26 mg/dL (7-18); CALCIUM 8.9 MG/DL (8.5-10.1); CARBON DIOXIDE 27 MMOL/L (21-32); CHLORIDE 108 MMOL/L (98-107); CREATININE 1.9 MG/DL (0.55-1.30); SODIUM 141 MMOL/L (136-145)
[2018-10-16] MEDS ORDERED: Promethazine Plain 6.25mg/5ml ORAL PRN (22:00)
[2018-10-16] MEDS: Morphine Sulfate 2mg/ml Inj(IV/IM USE ONLY) IVP PRN (22:27)
--- NOTE | 2018-10-16 23:37 | NUR ---
NURSE NOTES: PATIENT IS DIRECT ADMIT FROM HOME. ARRIVED ON FLOOR APPRX. 2015. PATIENT ALERT AND ORIENTED X4. PLACED PATIENT ON TELE, SR ON A MONITOR. BELONGINGS CHECKED, PATIENT REFUSED TO PLACE VALUABLES IN HOSPITAL SAFE. FALL PRECAUTIONS IN PLACE: CALL LIGHT, BEDSIDE TABLE AND URINAL WITHIN REACH, BED IN LOW POSITION AND BED ALARM ON. DR. LAGUNAS CALLED AND SAID WILL PUT ADMISSION ORDERS.
[2018-10-17] VITALS: BP 154/69
[2018-10-17 00:40] LABS: APPEARANCE,URINE CLEAR; BILIRUBIN, URINE NEGATIVE (NEGATIVE); COLOR,URINE PALE YELLOW; GLUCOSE, URINE (UA) NEGATIVE (NEGATIVE); KETONES,URINE NEGATIVE (NEGATIVE); LEUKOCYTE ESTERASE ,URINE NEGATIVE (NEGATIVE); NITRITE,URINE NEGATIVE (NEGATIVE); PH,URINE 5 (4.5-8.0); PROTEIN,URINE 1+ (NEGATIVE); UROBILINOGEN,URINE NORMAL MG/DL (0.0-1.0)
--- NOTE | 2018-10-17 00:45 | Consultation ---
DATE OF CONSULTATION: 10/16/2018 CARDIOLOGY CONSULTATION CONSULTING PHYSICIAN: Amado Vargas M.D. REFERRING PHYSICIAN: Bill Jackson M.D. REASON FOR CONSULTATION: Elevated troponin level and chest pain. HISTORY OF PRESENT ILLNESS: This 83-year-old male resides at home with his ill , who has had recurring falls and he has had to pick her up and get her off the floor into bed. He has had severe back and neck pain as well as chest pressure prompting this hospitalization. His initial troponin level was slightly elevated. I have been asked to assist with cardiovascular care. PAST MEDICAL HISTORY: Includes degenerative disk disease, cervical fusion, chronic kidney disease, COPD, hypertension with hypertensive heart disease, pulmonary hypertension, history of multiple herniated disks, history of spinal stenosis, type 2 diabetes mellitus, diabetic neuropathy, prostatic hypertrophy. MEDICATIONS: Reviewed and reconciled. ALLERGIES: Include codeine, hydrocodone, acetaminophen. FAMILY HISTORY: Noncontributory. SOCIAL HISTORY: Greater than 99-bjcw-kzzj smoker. Social alcohol. No substance abuse. REVIEW OF SYSTEMS: He had an outpatient stress test in the last year. His exercise capacity was limited due to leg pain and shortness of breath. He was able to achieve target heart rate with no signs of inducible ischemia. His baseline echocardiogram reveals normal ejection fraction, concentric hypertrophy, no significant pulmonary hypertension, and mild degenerative valve disease with regurgitation. He does have COPD. There is no history of abnormal blood clotting. He does not have any difficulty voiding on current regimen. He is on oral therapy for diabetes. PHYSICAL EXAMINATION: VITAL SIGNS: Blood pressure 119/65, pulse 71, respiratory rate 18, afebrile. HEENT: Conjunctivae are pink. Oropharynx clear. BACK: Kyphosis. NECK: Supple. MUSCULOSKELETAL: There are trigger points of the shoulder and cervical area. LUNGS: Diminished breath sounds. No rales or wheezing. HEART: Regular rhythm and rate. Normal S1, S2 with a fourth heart sound. ABDOMEN: Soft. EXTREMITIES: No edema. LABORATORY DATA: EKG pending. Troponin 0.072. Albumin 3.2. BUN 26, creatinine 1.9, potassium 4. IMPRESSION: 1. Acute myocardial ischemia, possible mva-FT-hrlczgjqq infarction. 2. Noncardiac chest, back, and neck pain. 3. Cervical radiculopathy. 4. Mild protein-calorie malnutrition. 5. Acute on chronic renal failure. 6. COPD with no active bronchospasm. 7. Hypertensive heart disease with controlled blood pressure. PLAN: 1. Serial troponin. 2. Maximize antianginal regimen. 3. Continue antiplatelet therapy. 4. Check lipid panel. 5. Cautiously hydrate. 6. Venous duplex scan to assess for source of pulmonary emboli. 7. DVT prophylaxis. 8. Physical and occupational therapy assessments. Amado Vargas M.D. DR: Arash JOB#: [id number] CC:
[2018-10-17 04:34] VITALS: BP 148/64
[2018-10-17] MEDS: NovoLOG Insulin Flexpen SUBQ SCH ×5 (06:10→21:00)
[2018-10-17] MEDS ORDERED: NovoLOG Insulin Flexpen SUBQ SCH ×2 (06:30)
--- NOTE | 2018-10-17 07:16 | NUR ---
HAND-OFF: Report given to Shima RODRIGUEZ RN. PATIENT ASLEEP, NO SIGNS OF DISTRESS NOTED.
--- NOTE | 2018-10-17 07:19 | NUR ---
NURSE NOTES: Pt received from ELVIS Sewell currently asleep in bed with no acute s/s of distress noted. IV site intact on L forearm 22g. Bed in lowest position, bed alarm on. Call light and belongings within reach.
[2018-10-17 07:21] LABS: ALANINE AMINOTRANSFERASE 23 U/L (12-78); ALBUMIN 3.1 G/DL (3.4-5.0); ALKALINE PHOSPHATASE 90 U/L (46-116); ANION GAP 7 mmol/L (5-15); ASPARTATE AMINO TRANSFERASE 17 U/L (15-37); BILIRUBIN,TOTAL 0.6 MG/DL (0.2-1.0); BLOOD UREA NITROGEN 27 mg/dL (7-18); CALCIUM 9.2 MG/DL (8.5-10.1); CARBON DIOXIDE 25 MMOL/L (21-32); CHLORIDE 109 MMOL/L (98-107); CHOLESTEROL 106 MG/DL (< 200); CREATININE 1.7 MG/DL (0.55-1.30); HDL CHOLESTEROL 43 MG/DL (40-60); POTASSIUM 4.1 MMOL/L (3.5-5.1); SODIUM 141 MMOL/L (136-145); TRIGLYCERIDES 47 MG/DL (30-150)
[2018-10-17 08:00] VITALS: BP 166/77
[2018-10-17] MEDS: Heparin 5000 units/ml inj SUBQ SCH ×2 (09:00→20:44)
[2018-10-17] MEDS ORDERED: metFORMIN 500mg tab ORAL SCH (09:00)
[2018-10-17] MEDS: Flonase Nasal Inhaler 16gm NASAL SCH (09:00)
[2018-10-17] MEDS: Aspirin EC 81mg tab ORAL SCH (09:15)
[2018-10-17] MEDS: Imdur 30mg tab ORAL SCH (09:15)
[2018-10-17 12:00] VITALS: BP 127/89
--- NOTE | 2018-10-17 12:38 | Diagnostic Imaging Report ---
Indication: Neck Pain Findings: 3 views of the cervical spine were obtained. Inherent limitation on this study due to the degree of osteoporosis present. Patient has had previous interbody fusion with anterior compression plate and screws, corpectomy and discectomy C3-4 C4-5. Moderate degenerative disc disease present at C5-6 and C6-7. There is no definite fracture or malalignment concerning for acute injury. No obvious soft tissue swelling is identified. The dens is not well seen. IMPRESSION: Limited evaluation. No acute injury appreciated. Anterior discectomy and fusion C3-C5
--- NOTE | 2018-10-17 15:05 | Cardiology Report ---
APPROVED REPORT EKG Measurement Heart [id number] HI [id number] Sinus bradycardia Right bundle branch block Abnormal ECG
[2018-10-17 16:00] VITALS: BP 112/68
--- NOTE | 2018-10-17 16:39 | NUR ---
CASE MANAGEMENT:REVIEW 83YR OLD MALE DIRECTLY ADMITTED FROM HOME SI: AMI. AC/CHR RENAL FAILURE. COPD 98.2 75 18 119/65 99% ON RA BUN+26 CR+1.9 TROPONIN(+) 0.072 IS: NORVASC PO QD AVAPRO PO QD HEPARIN SQ Q12 ASA PO QD IMDUR PO QD : TO TELEMETRY INTERQUAL CRITERIA MET
--- NOTE | 2018-10-17 17:25 | NUR ---
HAND-OFF: Report given to Gino RN. No acute s/s of distress noted.
--- NOTE | 2018-10-17 17:30 | History and Physical Report ---
DATE OF ADMISSION: 10/16/2018 CHIEF COMPLAINT: Chest pain. HISTORY OF PRESENT ILLNESS: The patient is a pleasant male. He has multiple medical problems including history of hypertension, diabetes, and chronic kidney disease. He has a history of severe degenerative disc disease and cervical radiculopathy, who presented from home with complaints of chest pain. According to the patient, he was well. He was at home when his sustained a fall. While trying to help her out of bed, he developed pain in the neck and upper chest area. He is now admitted for further evaluation and care. He denies any fever or chills. He has had no cough. Initial laboratory tests are significant for an elevated troponin of 0.072. PAST MEDICAL HISTORY: As above. PAST SURGICAL HISTORY: Includes neck and back surgery. CURRENT MEDICATIONS: Reconciled and reviewed. ALLERGIES: Include codeine and hydrocodone. FAMILY HISTORY: Noncontributory. SOCIAL HISTORY: The patient is a smoker. No alcohol. No drugs. REVIEW OF SYSTEMS: GENERAL: No fevers or chills. HEENT: No headaches or visual changes. CARDIOPULMONARY: Positive chest pain and neck pain. No shortness of breath. GASTROINTESTINAL: No nausea or vomiting. GENITOURINARY: No urgency or frequency. MUSCULOSKELETAL: Positive joint pains, but no swelling. NEUROLOGIC: No evidence of seizures. PHYSICAL EXAMINATION: VITAL SIGNS: Temperature 98 degrees, pulse 56, respirations 18, and blood pressure 148/64. GENERAL: The patient is well developed, in no apparent distress. HEART: Regular rate and rhythm. LUNGS: Clear. ABDOMEN: Soft, nontender, and nondistended. EXTREMITIES: Without clubbing, cyanosis, or edema. LABORATORY DATA: Sodium 141, potassium 4, chloride 108, bicarb 27, BUN 26, and creatinine 1.9. White count was 4, hemoglobin 13. UA was clear. ASSESSMENT: This is a pleasant male admitted with complaints of chest pain and neck pain. He does have an elevated troponin. Currently, he is pain-free except for his neck. He is diabetic and hypertensive and has chronic kidney disease. PLAN: 1. Antiplatelet therapy. 2. Cardiology followup. 3. Check an echo. 4. Check a lipid panel, A1c level. 5. Renal consultation will also be obtained. Bill Jackson M.D. DR: REG JOB#: [id number] CC:
--- NOTE | 2018-10-17 19:30 | NUR ---
NURSE NOTES: received patient from ELVIS Linda. patient is awake in bed, and verbally responsive to commands. denies pain at this time. patient is currently on room air, no s/sx of respiratory distress at this time. IV site is patent and intact. bed in lowest position and locked, siderails up X2, call light within reach. will continue to monitor.
[2018-10-17 20:00] VITALS: BP 124/67
[2018-10-17] MEDS: Tamsulosin 0.4mg cap ORAL SCH (20:42)
[2018-10-18] VITALS: BP 109/63
[2018-10-18] MEDS: Morphine Sulfate 2mg/ml Inj(IV/IM USE ONLY) IVP PRN ×2 (00:21→09:10)
--- NOTE | 2018-10-18 03:15 | Progress Note ---
DATE: 10/18/2018 CARDIOLOGY PROGRESS NOTE SUBJECTIVE: The patient continues to have neck discomfort and back pain. He denies chest pain. He is not short of breath. Monitored rhythm, sinus and sinus bradycardia. OBJECTIVE: VITAL SIGNS: Blood pressure 124/67, pulse 73, respirations 20, oxygen saturation on room air 98%. LUNGS: Diminished breath sounds. No wheezing. Some trigger points in the neck and cervical region. CARDIAC: Regular rhythm and rate. Normal S1, S2 with a fourth heart sound. ABDOMEN: Soft. No edema. LABORATORY AND DIAGNOSTIC DATA: EKG on admission sinus bradycardia and right bundle-branch block. Troponin 0.072 and #2 is 0.065 and pro-natriuretic peptide is 881. IMPRESSION: 1. Cervical radiculopathy. 2. Chronic ischemic heart disease. 3. Conduction system disease with chronic right bundle-branch block. 4. Asymptomatic sinus bradycardia. 5. Chronic obstructive pulmonary disease. 6. Acute and chronic diastolic congestive heart failure. 7. Type 2 diabetes mellitus. PLAN: 1. Anti-platelet therapy. 2. Check lipid panel and consider statin. 3. Serial troponin. 4. Long-acting nitrates and antihypertensives as well as anti-failure regimen with angiotensin receptor soheila. 5. Outpatient records review. Recent stress echocardiogram was normal. 6. We will continue medical management unless symptomatic in the future. Amado Vargas M.D. DR: AQUILES JOB#: [id number] CC:
[2018-10-18 04:00] VITALS: BP 115/59
[2018-10-18] MEDS: NovoLOG Insulin Flexpen SUBQ SCH ×4 (06:30→21:00)
[2018-10-18 07:27] LABS: CHOLESTEROL 103 MG/DL (< 200); CKMB 1.8 NG/ML (0.0-3.6); CREATINE KINASE 67 U/L (26-308); HDL CHOLESTEROL 38 MG/DL (40-60); TRIGLYCERIDES 52 MG/DL (30-150)
--- NOTE | 2018-10-18 07:33 | NUR ---
HAND-OFF: Report given to ELVIS Ureña. patient is in stable condition.
[2018-10-18 08:00] VITALS: BP 124/58
--- NOTE | 2018-10-18 08:02 | NUR ---
NURSE NOTES: Patient is alert and oriented. Patient ambulating with front wheel walker. No reports of discomfort at the moment. Bed is locked, in lowest position, and call light is within reach. Will continue to monitor.
[2018-10-18] MEDS: Aspirin EC 81mg tab ORAL SCH (08:48)
[2018-10-18] MEDS: Flonase Nasal Inhaler 16gm NASAL SCH (08:49)
[2018-10-18] MEDS: Heparin 5000 units/ml inj SUBQ SCH ×2 (08:51→21:46)
[2018-10-18] MEDS: Losartan 50mg tab ORAL SCH (08:54)
[2018-10-18] MEDS: Imdur 30mg tab ORAL SCH (08:55)
--- NOTE | 2018-10-18 09:14 | General Progress Note ---
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 ICD Codes: J43.8 - COPD (chronic obstructive pulmonary disease) with emphysema SNOMED: 97557353 Status: stable, progressing Assessment/Plan: cont current rx pt/ot pain rx adjusted monitor renal fxn cardiac rx dc planning to snf Subjective ROS Limited/Unobtainable: No Constitutional: Reports: malaise, weakness HEENT: Reports: no symptoms Cardiovascular: Reports: no symptoms Respiratory: Reports: no symptoms Gastrointestinal/Abdominal: Reports: no symptoms Genitourinary: Reports: no symptoms Neurologic/Psychiatric: Reports: no symptoms Endocrine: Reports: no symptoms Hematologic/Lymphatic: Reports: no symptoms Allergies: Coded Allergies: ACETAMINOPHEN (Unverified Allergy, Unknown, Shortness of Breath, 10/03/13) shortness of breath and hives CODEINE (Unverified Allergy, Unknown, Shortness of Breath, 10/03/13) sob and hives HYDROCODONE (Unverified Allergy, Unknown, Shortness of Breath, 10/03/13) shortness of breath and hives All Systems: reviewed and negative except above Subjective no new complaints. c/o neuropathic pain. no fever or chills. c/o insomnia. cards noted. no cp/sob. Objective Last 24 Hour Vital Signs Date Time Temp Pulse Resp B/P (MAP) Pulse Ox O2 Delivery O2 Flow Rate FiO2 10/18/18 08:55 124/58 10/18/18 08:55 70 124/58 10/18/18 08:54 124/58 10/18/18 04:00 56 10/18/18 04:00 97.5 63 18 115/59 (77) 99 10/18/18 00:00 97.9 71 20 109/63 (78) 99 10/18/18 00:00 83 10/17/18 23:53 98 Nasal Cannula 2.0 28 10/17/18 21:00 Room Air 10/17/18 20:00 98.4 73 20 124/67 (86) 98 10/17/18 20:00 67 10/17/18 16:00 97.5 73 20 112/68 (83) 100 10/17/18 16:00 61 10/17/18 12:00 97.0 61 20 127/89 (102) 100 10/17/18 12:00 59 10/17/18 11:17 93 16 98 Room Air 21 10/17/18 11:15 91 16 97 Room Air 21 10/17/18 09:15 166/77 10/17/18 09:15 166/77 10/17/18 09:15 70 166/77 Intake and Output 10/17/18 10/18/18 19:00 07:00 Intake Total 300 ml Balance 300 ml Intake Oral 300 ml # Voids 3 2 # Bowel Movements 2 Laboratory Tests 10/18/18 05:55: Total Creatine Kinase 67, Creatine Kinase MB 1.8, Creatine Kinase MB Relative Index 2.6, Troponin I 0.055, Pro-B-Type Natriuretic Peptide 610H, Triglycerides Level 52, Cholesterol Level 103, LDL Cholesterol 54, HDL Cholesterol 38L, Cholesterol/HDL Ratio 2.7L Height (Feet): 5 Height (Inches): 8.00 Weight (Pounds): 174 General Appearance: WD/WN, alert Neck: supple Cardiovascular: regular rhythm Respiratory/Chest: chest wall non-tender, lungs clear, normal breath sounds, no respiratory distress Abdomen: normal bowel sounds, non tender, soft, no organomegaly Edema: no edema noted Arm (L), no edema noted Arm (R), no edema noted Leg (L), no edema noted Leg (R), no edema noted Pedal (L), no edema noted Pedal (R), no edema noted Generalized Neurologic: cell liner II-XII grossly normal, abnormal gait, alert, oriented x 3 Lymphatic: normal anterior cervical (L), normal anterior cervical (R), normal posterior cervical (L), normal posterior cervical (R), normal submandibular (L) , normal submandibular (R), normal supraclavicular (L), normal supraclavicular ( R), normal axillary (L), normal axillary (R), normal inguinal (L), normal inguinal (R), normal other Bill Jackson MD Oct 18, 2018 09:14
[2018-10-18] MEDS: Lyrica 50mg cap ORAL SCH ×2 (10:25→17:06)
[2018-10-18 12:00] VITALS: BP 116/60
--- NOTE | 2018-10-18 14:40 | NUR ---
DISCHARGE PLANNING PATIENT AND SPOUSE HAVE BEEN REFERRED TO AND ACCEPTED AT [facility] WHEN READY FOR DISCHARGE
[2018-10-18 16:00] VITALS: BP 127/73
--- NOTE | 2018-10-18 19:10 | NUR ---
NURSE NOTES: Report received from ELVIS Hendricks. Pt is lying comfortably in bed in stable condition. Bed in the lowest position, bed brakes engaged, side rails up x3 with call light within reach. Will continue to monitor.
--- NOTE | 2018-10-18 19:27 | NUR ---
HAND-OFF: Report given to ELVIS Bravo.
[2018-10-18 20:00] VITALS: BP 125/70
[2018-10-18] MEDS: Tamsulosin 0.4mg cap ORAL SCH (21:46)
[2018-10-19] VITALS: BP 158/73
--- NOTE | 2018-10-19 02:15 | Progress Note ---
DATE: 10/18/2018 CARDIOLOGY PROGRESS NOTE SUBJECTIVE: The patient has no chest pain or shortness of breath. He complains of painful hands and feet. He has difficulty sleeping. He continues to have neck pain after lifting his off the floor prior to admission. OBJECTIVE: VITAL SIGNS: Blood pressure 124/58, pulse 70, respirations 18, and afebrile. Monitor, sinus and sinus bradycardia. LUNGS: Diminished breath sounds. No wheezing. HEART: Regular rhythm and rate. Normal S1, S2 with a fourth heart sound. ABDOMEN: Soft. EXTREMITIES: No edema. LABORATORY DATA: Natriuretic peptide 600. Troponin 0.055. CK is 67. LDL cholesterol 54. IMPRESSION: 1. No signs of acute coronary insufficiency at this time. 2. Elevated natriuretic peptide likely . 3. Right heart insufficiency in the setting of severe obstructive lung disease. 4. Chronic kidney disease. 5. Hypertensive heart disease. 6. Favorable lipid panel. PLAN: 1. Needs rehabilitation. 2. Agree with [facility] facility for short-term rehabilitation. 3. Cardiovascular regimen reviewed and reconciled. 4. We will need to continue monitoring renal parameters and volume status closely as well as blood pressure control following discharge. Amado Vargas M.D. DR: JAI JOB#: [id number] CC:
[2018-10-19 04:00] VITALS: BP 136/63
[2018-10-19] MEDS: NovoLOG Insulin Flexpen SUBQ SCH ×4 (06:24→21:00)
--- NOTE | 2018-10-19 07:24 | NUR ---
HAND-OFF: Report given to ELVIS Ureña.
--- NOTE | 2018-10-19 07:50 | NUR ---
NURSE NOTES: Patient is alert and oriented. No reports of discomfort at the moment. Side rails are upx2, bed is locked, and call light is within reach. Will continue to monitor.
[2018-10-19 08:00] VITALS: BP 140/70
[2018-10-19 08:41] LABS: ALANINE AMINOTRANSFERASE 19 U/L (12-78); ALBUMIN 3.2 G/DL (3.4-5.0); ALBUMIN/GLOBULIN RATIO 0.9 (1.0-2.7); ALKALINE PHOSPHATASE 93 U/L (46-116); ANION GAP 8 mmol/L (5-15); ASPARTATE AMINO TRANSFERASE 14 U/L (15-37); BILIRUBIN,TOTAL 0.4 MG/DL (0.2-1.0); BLOOD UREA NITROGEN 32 mg/dL (7-18); CALCIUM 8.9 MG/DL (8.5-10.1); CARBON DIOXIDE 24 MMOL/L (21-32); CHLORIDE 109 MMOL/L (98-107); CREATININE 1.8 MG/DL (0.55-1.30); POTASSIUM 4.5 MMOL/L (3.5-5.1); SODIUM 141 MMOL/L (136-145)
[2018-10-19] MEDS: Flonase Nasal Inhaler 16gm NASAL SCH (08:44)
[2018-10-19] MEDS: Lyrica 50mg cap ORAL SCH ×2 (08:45→17:12)
[2018-10-19] MEDS: Aspirin EC 81mg tab ORAL SCH (08:46)
[2018-10-19] MEDS: Imdur 30mg tab ORAL SCH (08:46)
[2018-10-19] MEDS: Losartan 50mg tab ORAL SCH (08:46)
[2018-10-19] MEDS: Heparin 5000 units/ml inj SUBQ SCH ×2 (08:47→21:11)
--- NOTE | 2018-10-19 10:48 | NUR ---
DISCHARGE PLANNED PATIENT WILL DISCHARGE TO [facility] ROOM 16A SKILLED T; [phone] FOR NURSE TO NURSE REPORT [facility] HAS BEEN ARRANGED FOR 1330 LAMINATION SPINNER TRANSFER FORM COMPLETED
[2018-10-19 12:00] VITALS: BP 131/61
[2018-10-19] MEDS: Morphine Sulfate 2mg/ml Inj(IV/IM USE ONLY) IVP PRN (12:35)
--- NOTE | 2018-10-19 15:49 | NUR ---
P.T Note: P.T evaluation completed and treatment initiated. Please refer to P.T evaluation for current functional status . Pt is limited by generalized weakness , fatigue and visual impairment. Pt currently require SBA/CGA x 1 for bed mobility , transfers and gait ambulation activities. Skilled P.T service is warranted to improved strength, balance and endurance to increase his mobility independence and safety. Recommend home P.T for safety follow up at [place]. Addendum: 10/19/18 at 1552 by TAWANDA MADISON PT Amended: Links added.
[2018-10-19 16:00] VITALS: BP 105/47
--- NOTE | 2018-10-19 17:46 | Diagnostic Imaging Report ---
Indication: Dyspnea Comparison: 06/26/2017 2 views of the chest obtained. Findings: No definite infiltrate or pulmonary vascular congestion identified. The heart is normal in size. The aorta is mildly enlarged consistent with atherosclerotic vascular disease. The bones are osteopenic. There are surgical clips in the upper abdomen. Impression: No acute disease
--- NOTE | 2018-10-19 19:26 | NUR ---
HAND-OFF: Report given to ELVIS Bravo.
[2018-10-19 20:00] VITALS: BP 126/64
[2018-10-19] MEDS: Tamsulosin 0.4mg cap ORAL SCH (21:07)
[2018-10-20] VITALS: BP 113/62
--- NOTE | 2018-10-20 01:15 | Discharge Summary ---
DATE OF ADMISSION: 10/16/2018 DATE OF DISCHARGE: 10/19/2018 ADMISSION DIAGNOSES: 1. Chest pain. 2. Diabetes. 3. Hypertension. 4. Acute on chronic renal failure. 5. Severe cervical radiculopathy. 6. Macular degeneration. DISCHARGE DIAGNOSES: 1. Chest pain. 2. Diabetes. 3. Hypertension. 4. Acute on chronic renal failure. 5. Severe cervical radiculopathy. 6. Macular degeneration. 7. Possible acute myocardial infarction. HOSPITAL COURSE: The patient was admitted with complaints of chest pain and neck pain. He had been helping his , who had sustained a fall. He did have elevated troponins, but had no chest pain while in-house and he was chest pain free. Troponins normalized. He was seen by Cardiology. He had done a recent stress test that was unremarkable. The patient was gently hydrated. On discharge, he was stable, but was weak and needed rehabilitation. He will be discharged to a [facility]pc facility for rehabilitation therapy. DISCHARGE MEDICATIONS: Please see discharge medication list for discharge medications. DIET: Cardiac diabetic diet. ACTIVITY: Ad-devang. FOLLOWUP: The patient will follow up in one to two days at the fpc facility. Bill Jackson M.D. DR: JUNIOR JOB#: [id number] CC:
--- NOTE | 2018-10-20 03:45 | Progress Note ---
DATE: 10/19/2018 CARDIOLOGY PROGRESS NOTE SUBJECTIVE: No chest pain. No shortness of breath. Chest x-ray yesterday with no acute disease. OBJECTIVE: VITAL SIGNS: Blood pressure 126/64, pulse 82, and respirations 18. LUNGS: Coarse breath sounds. HEART: Regular rhythm and rate. Normal S1, S2. ABDOMEN: Soft. EXTREMITIES: No edema. IMPRESSION: 1. Chronic obstructive pulmonary disease. 2. Chronic ischemic heart disease. 3. Hypertensive heart disease with controlled blood pressure. 4. History of cervical radiculopathy. PLAN: 1. Titrate cardiopulmonary regimen. 2. Mobilize with caution. 3. Rehabilitation at a residential facility. Amado Vargas M.D. DR: AQUILES JOB#: [id number] CC:
[2018-10-20 04:00] VITALS: BP 123/83
[2018-10-20] MEDS: Morphine Sulfate 2mg/ml Inj(IV/IM USE ONLY) IVP PRN ×2 (05:14→10:01)
[2018-10-20] MEDS: NovoLOG Insulin Flexpen SUBQ SCH ×4 (05:41→21:35)
--- NOTE | 2018-10-20 07:18 | NUR ---
HAND-OFF: Report given to ELVIS Melchor.
--- NOTE | 2018-10-20 07:28 | NUR ---
NURSE NOTES: Received report from Shelly /RN, Patient awake and alert, eating breakfast on bed, No acute distress/SOB noted at this time. IV on left forearm patent, no bleeding or infiltration noted. Bed in low position and locked. Call light within reach. Will continue plan of care.
[2018-10-20 08:00] VITALS: BP 109/60
[2018-10-20] MEDS: Eliquis 2.5mg tablet ORAL SCH ×2 (09:53→18:29)
[2018-10-20] MEDS: Losartan 50mg tab ORAL SCH (09:53)
[2018-10-20] MEDS: Imdur 30mg tab ORAL SCH (09:53)
[2018-10-20] MEDS: Aspirin EC 81mg tab ORAL SCH (09:53)
[2018-10-20] MEDS: Flonase Nasal Inhaler 16gm NASAL SCH (09:54)
[2018-10-20] MEDS: Lyrica 50mg cap ORAL SCH ×2 (10:00→18:30)
--- NOTE | 2018-10-20 11:14 | General Progress Note ---
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 ICD Codes: J43.8 - COPD (chronic obstructive pulmonary disease) with emphysema SNOMED: 90976893 Status: stable, progressing Assessment/Plan: cont current rx pt/ot pain rx adjusted monitor renal fxn cardiology follow up added eliquis check lytes Subjective ROS Limited/Unobtainable: No Constitutional: Reports: malaise, weakness HEENT: Reports: no symptoms Cardiovascular: Reports: palpitations Respiratory: Reports: no symptoms Gastrointestinal/Abdominal: Reports: no symptoms Genitourinary: Reports: no symptoms Neurologic/Psychiatric: Reports: no symptoms Endocrine: Reports: no symptoms Hematologic/Lymphatic: Reports: no symptoms Allergies: Coded Allergies: ACETAMINOPHEN (Unverified Allergy, Unknown, Shortness of Breath, 10/03/13) shortness of breath and hives CODEINE (Unverified Allergy, Unknown, Shortness of Breath, 10/03/13) sob and hives HYDROCODONE (Unverified Allergy, Unknown, Shortness of Breath, 10/03/13) shortness of breath and hives All Systems: reviewed and negative except above Subjective in pain. now in afib. rate controlled. Objective Last 24 Hour Vital Signs Date Time Temp Pulse Resp B/P (MAP) Pulse Ox O2 Delivery O2 Flow Rate FiO2 10/20/18 09:53 109/60 10/20/18 09:53 109/60 10/20/18 09:53 70 109/60 10/20/18 09:27 70 18 96 Room Air 21 10/20/18 09:25 Room Air 21 10/20/18 09:25 96 Room Air 21 10/20/18 08:00 97.6 90 20 109/60 (76) 97 10/20/18 05:44 97.2 10/20/18 04:00 97.2 96 18 123/83 (96) 96 10/20/18 04:00 74 10/20/18 00:00 69 10/20/18 00:00 98.5 71 16 113/62 (79) 99 10/19/18 21:00 Room Air 10/19/18 20:00 73 10/19/18 20:00 98.3 82 18 126/64 (84) 97 10/19/18 19:31 97 Nasal Cannula 2.0 28 10/19/18 19:30 77 18 97 Nasal Cannula 2.0 28 10/19/18 19:27 74 18 97 Nasal Cannula 2.0 28 10/19/18 16:00 98.7 73 18 105/47 (66) 98 10/19/18 16:00 74 10/19/18 12:00 80 10/19/18 12:00 97.6 89 20 131/61 (84) 98 Intake and Output 10/19/18 10/20/18 19:00 07:00 Intake Total 720 ml Balance 720 ml Intake Oral 720 ml # Voids 4 3 Height (Feet): 5 Height (Inches): 8.00 Weight (Pounds): 174 Objective General Appearance: WD/WN, alert Neck: supple Cardiovascular: irregular rhythm Respiratory/Chest: chest wall non-tender, lungs clear, normal breath sounds, no respiratory distress Abdomen: normal bowel sounds, non tender, soft, no organomegaly Edema: no edema noted Arm (L), no edema noted Arm (R), no edema noted Leg (L), no edema noted Leg (R), no edema noted Pedal (L), no edema noted Pedal (R), no edema noted Generalized Neurologic: 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
[2018-10-20 12:00] VITALS: BP 139/65
[2018-10-20 16:00] VITALS: BP 106/50
--- NOTE | 2018-10-20 19:30 | NUR ---
NURSE NOTES: Received pt and report from ELVIS Harris. Observe pt resting in bed on his cellphone. monitoring manager is in placed, IV site intact, asymptomatic and patent. Bed in the lowest position and locked. Call light within reach. No signs/symptoms of acute distress noted at this time. Will continue plan of care.
--- NOTE | 2018-10-20 19:43 | NUR ---
HAND-OFF: Report given to Sheridan/RN, Patient in stable condition, no acute distress noted. Endorsed plan of care.
[2018-10-20 20:00] VITALS: BP 145/62
[2018-10-20] MEDS: Tamsulosin 0.4mg cap ORAL SCH (21:34)
[2018-10-21] VITALS: BP 113/56
[2018-10-21] MEDS: Morphine Sulfate 2mg/ml Inj(IV/IM USE ONLY) IVP PRN ×3 (00:45→11:23)
[2018-10-21 04:00] VITALS: BP 142/74
--- NOTE | 2018-10-21 05:00 | Progress Note ---
DATE: 10/20/2018 CARDIOLOGY PROGRESS NOTE SUBJECTIVE: The patient has no distress. He has developed atrial fibrillation today, rates are controlled. He denies chest pain. OBJECTIVE: VITAL SIGNS: Blood pressure 145/62, pulse 103, respiratory rate 20, and afebrile. Oxygen saturation on room air 97%. LUNGS: Clear. CARDIAC: Irregularly irregular. ABDOMEN: Soft. EXTREMITIES: No edema. IMPRESSION: 1. Acute coronary insufficiency. 2. New onset atrial fibrillation. 3. COPD. 4. Pulmonary hypertension. 5. Hypertensive heart disease. PLAN: 1. Cardioembolic prophylaxis appropriately initiated with apixaban. 2. Titrate anti-failure regimen. 3. Additional therapy for rate control may be needed. 4. Recheck laboratory studies and troponin level. 5. Consider ischemia workup in the future. Amado Vargas M.D. DR: MAYLIN JOB#: [id number] CC:
[2018-10-21] MEDS: NovoLOG Insulin Flexpen SUBQ SCH ×4 (06:28→21:21)
[2018-10-21 07:17] LABS: HEMATOCRIT 37.8 % (42.0-52.0); HEMOGLOBIN 12.5 G/DL (14.2-18.0); MEAN CORPUSCULAR VOLUME 88 FL (80-99); PLATELET COUNT 138 K/UL (150-450); RED BLOOD COUNT 4.31 M/UL (4.70-6.10); RED CELL DISTRIBUTION WIDTH 14.4 % (11.6-14.8); WHITE BLOOD COUNT 3.5 K/UL (4.8-10.8)
--- NOTE | 2018-10-21 07:38 | NUR ---
HAND-OFF: Report given to ELVIS Harris.
--- NOTE | 2018-10-21 07:39 | NUR ---
NURSE NOTES: Received report from Sheridan/RN, Patient is awake and alert, sitting up on bed, no acute distress/SOB noted at this time. is patient also and on next bed. IV on left forearm 22 gauge. patent, no bleeding or infiltration noted. Bed in low position and locked, Call light within reach. Will continue plan of care.
[2018-10-21 08:00] VITALS: BP 146/68
[2018-10-21 08:00] LABS: ALANINE AMINOTRANSFERASE 17 U/L (12-78); ALBUMIN 2.8 G/DL (3.4-5.0); ALBUMIN/GLOBULIN RATIO 0.9 (1.0-2.7); ALKALINE PHOSPHATASE 71 U/L (46-116); ANION GAP 10 mmol/L (5-15); ASPARTATE AMINO TRANSFERASE 13 U/L (15-37); BILIRUBIN,TOTAL 0.3 MG/DL (0.2-1.0); BLOOD UREA NITROGEN 46 mg/dL (7-18); CALCIUM 8.8 MG/DL (8.5-10.1); CARBON DIOXIDE 21 MMOL/L (21-32); CHLORIDE 110 MMOL/L (98-107); POTASSIUM 4.4 MMOL/L (3.5-5.1); SODIUM 141 MMOL/L (136-145)
--- NOTE | 2018-10-21 09:00 | NUR ---
NURSE NOTES: Patient's troponin is 0.065, Dr. Zavala aware.
[2018-10-21] MEDS: Imdur 30mg tab ORAL SCH (09:53)
[2018-10-21] MEDS: Losartan 50mg tab ORAL SCH (09:53)
[2018-10-21] MEDS: Aspirin EC 81mg tab ORAL SCH (09:53)
[2018-10-21] MEDS: Lyrica 50mg cap ORAL SCH ×2 (09:54→17:30)
[2018-10-21] MEDS: Flonase Nasal Inhaler 16gm NASAL SCH (09:57)
[2018-10-21] MEDS: Eliquis 2.5mg tablet ORAL SCH ×2 (09:57→17:29)
--- NOTE | 2018-10-21 10:41 | General Progress Note ---
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 check lytes renal us Subjective ROS Limited/Unobtainable: No Constitutional: Reports: no symptoms HEENT: Reports: no symptoms Cardiovascular: Reports: no symptoms Respiratory: Reports: no symptoms Gastrointestinal/Abdominal: Reports: no symptoms Genitourinary: Reports: no symptoms Neurologic/Psychiatric: Reports: no symptoms Endocrine: Reports: no symptoms Hematologic/Lymphatic: Reports: no symptoms Allergies: Coded Allergies: ACETAMINOPHEN (Unverified Allergy, Unknown, Shortness of Breath, 10/03/13) shortness of breath and hives CODEINE (Unverified Allergy, Unknown, Shortness of Breath, 10/03/13) sob and hives HYDROCODONE (Unverified Allergy, Unknown, Shortness of Breath, 10/03/13) shortness of breath and hives All Systems: reviewed and negative except above Subjective in pain. converted to sinus yesterday morning. renal fxn up. no cp/sob. Objective Last 24 Hour Vital Signs Date Time Temp Pulse Resp B/P (MAP) Pulse Ox O2 Delivery O2 Flow Rate FiO2 10/21/18 09:54 78 146/68 10/21/18 09:53 146/68 10/21/18 09:53 146/68 10/21/18 08:30 78 18 98 Room Air 21 10/21/18 08:30 98 Room Air 21 10/21/18 08:28 79 18 98 Room Air 21 10/21/18 08:00 98.3 64 20 146/68 (94) 96 10/21/18 04:00 64 10/21/18 04:00 98.1 65 20 142/74 (96) 98 10/21/18 00:00 67 10/21/18 00:00 99.1 69 18 113/56 (75) 100 10/20/18 22:21 97 Room Air 21 10/20/18 22:19 67 18 97 Room Air 21 10/20/18 22:17 65 18 97 Room Air 21 10/20/18 21:00 Room Air 10/20/18 20:00 97.8 103 20 145/62 (89) 96 10/20/18 20:00 72 10/20/18 16:00 98.0 77 20 106/50 (68) 98 10/20/18 16:00 71 10/20/18 12:00 77 10/20/18 12:00 98.6 76 20 139/65 (89) 98 Intake and Output 10/20/18 10/21/18 19:00 07:00 Intake Total 740 ml Output Total 600 ml Balance 740 ml -600 ml Intake Oral 740 ml Output Urine Total 600 ml # Voids 3 Laboratory Tests 10/21/18 06:12: White Blood Count 3.5L, Red Blood Count 4.31L, Hemoglobin 12.5L, Hematocrit 37.8L, Mean Corpuscular Volume 88, Mean Corpuscular Hemoglobin 28.9, Mean Corpuscular Hemoglobin Concent 33.0, Red Cell Distribution Width 14.4, Platelet Count 138L, Mean Platelet Volume 7.9, Neutrophils (%) (Auto) , Lymphocytes (%) ( Auto) , Monocytes (%) (Auto) , Eosinophils (%) (Auto) , Basophils (%) (Auto) , Differential Total Cells Counted 100, Neutrophils % (Manual) 41L, Lymphocytes % (Manual) 54H, Monocytes % (Manual) 5, Eosinophils % (Manual) 0, Basophils % ( Manual) 0, Band Neutrophils 0, Platelet Estimate DecreasedL, Platelet Morphology Normal, Red Blood Cell Morphology Normal, Sodium Level 141, Potassium Level 4.4, Chloride Level 110H, Carbon Dioxide Level 21, Anion Gap 10 , Blood Urea Nitrogen 46H, Creatinine 2.0H, Estimat Glomerular Filtration Rate , Glucose Level 107H, Calcium Level 8.8, Magnesium Level 2.1, Total Bilirubin 0.3, Aspartate Amino Transf (AST/SGOT) 13L, Alanine Aminotransferase (ALT/SGPT) 17, Alkaline Phosphatase 71, Troponin I 0.065H, Pro-B-Type Natriuretic Peptide 1134H, Total Protein 5.8L, Albumin 2.8L, Globulin 3.0, Albumin/Globulin Ratio 0.9L Height (Feet): 5 Height (Inches): 8.00 Weight (Pounds): 174 Objective General Appearance: WD/WN, alert Neck: supple Cardiovascular: irregular rhythm Respiratory/Chest: chest wall non-tender, lungs clear, normal breath sounds, no respiratory distress Abdomen: normal bowel sounds, non tender, soft, no organomegaly Edema: no edema noted Arm (L), no edema noted Arm (R), no edema noted Leg (L), no edema noted Leg (R), no edema noted Pedal (L), no edema noted Pedal (R), no edema noted Generalized 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
[2018-10-21 12:00] VITALS: BP 122/65
[2018-10-21 16:00] VITALS: BP 116/65
--- NOTE | 2018-10-21 19:15 | NUR ---
NURSE NOTES: Received pt and report from ELVIS Harris. Observe pt resting in bed with both eyes open. insurance sales agent is in placed, IV site intact, asymptomatic and patent. Bed in the lowest position and locked. Call light within reach. No signs/symptoms of acute distress noted at this time. Will continue plan of care.
--- NOTE | 2018-10-21 19:21 | NUR ---
HAND-OFF: Report given to Sheridan/RN, Patient awake and alert, in stable condition. Endorsed plan of care.
[2018-10-21 20:00] VITALS: BP 130/68
[2018-10-21] MEDS: Tamsulosin 0.4mg cap ORAL SCH (21:20)
[2018-10-22] VITALS: BP 131/67
--- NOTE | 2018-10-22 02:45 | Progress Note ---
DATE: 10/21/2018 SUBJECTIVE: The patient has converted back to sinus rhythm. He has no chest pain or shortness of breath. OBJECTIVE: VITAL SIGNS: Blood pressure 130/68, heart rate 62, respiratory rate 18, afebrile, room air oxygen sat 97%. LUNGS: Diminished breath sounds. No wheezes or rales. HEART: Regular rhythm and rate. Normal S1, S2 with a fourth heart sound. ABDOMEN: Soft and nontender. EXTREMITIES: No edema. LABORATORY AND DIAGNOSTIC DATA: White count 3.5, hemoglobin 12.5, platelets 138,000. Troponin is . Pro natriuretic peptide is 1100. BUN 46, creatinine 2, potassium 4.4, albumin 2.8. IMPRESSION: 1. Chronic ischemic heart disease. 2. Paroxysmal atrial fibrillation. 3. Hypertensive heart disease. 4. Acute on chronic renal failure. 5. COPD. PLAN: 1. Discontinue losartan. 2. Maintain anticoagulation with apixaban. 3. Titrate remaining antihypertensives and antianginals. 4. Outpatient stress test to follow. 5. To reassess coronary flow reserve. Amado Vargas M.D. DR: ALLEN JOB#: [id number] CC:
[2018-10-22 04:00] VITALS: BP 142/65
[2018-10-22] MEDS: Morphine Sulfate 2mg/ml Inj(IV/IM USE ONLY) IVP PRN (05:59)
[2018-10-22] MEDS: NovoLOG Insulin Flexpen SUBQ SCH ×2 (06:01→11:30)
[2018-10-22] MEDS ORDERED: 1/2 NS 1000ml IV ONE (06:17)
[2018-10-22 06:57] LABS: HEMATOCRIT 37.4 % (42.0-52.0); HEMOGLOBIN 12.4 G/DL (14.2-18.0); MEAN CORPUSCULAR VOLUME 88 FL (80-99); PLATELET COUNT 131 K/UL (150-450); RED BLOOD COUNT 4.27 M/UL (4.70-6.10); RED CELL DISTRIBUTION WIDTH 14.2 % (11.6-14.8)
--- NOTE | 2018-10-22 07:15 | NUR ---
NURSE NOTES: Received report from Sheridan/RN, Patient awake and alert, eating breakfast, No acute distress/SOB noted. Denies any pain at this time. IV on left forearm 22 gauge, patent, no bleeding or infiltration noted. Bed in low position and locked. Call light within reach. Will continue plan of care.
[2018-10-22 07:22] LABS: ALANINE AMINOTRANSFERASE 20 U/L (12-78); ALBUMIN 2.8 G/DL (3.4-5.0); ALBUMIN/GLOBULIN RATIO 0.9 (1.0-2.7); ALKALINE PHOSPHATASE 68 U/L (46-116); ANION GAP 7 mmol/L (5-15); ASPARTATE AMINO TRANSFERASE 15 U/L (15-37); BILIRUBIN,TOTAL 0.3 MG/DL (0.2-1.0); BLOOD UREA NITROGEN 37 mg/dL (7-18); CALCIUM 8.7 MG/DL (8.5-10.1); CARBON DIOXIDE 23 MMOL/L (21-32); CHLORIDE 110 MMOL/L (98-107); CREATININE 1.8 MG/DL (0.55-1.30); POTASSIUM 4.4 MMOL/L (3.5-5.1); SODIUM 140 MMOL/L (136-145)
--- NOTE | 2018-10-22 07:38 | NUR ---
HAND-OFF: Report given to ELVIS Harris.
[2018-10-22 08:00] VITALS: BP 152/82
--- NOTE | 2018-10-22 08:19 | General Progress Note ---
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 ICD Codes: J43.8 - COPD (chronic obstructive pulmonary disease) with emphysema SNOMED: 46451975 Status: stable, progressing Assessment/Plan: cont current rx pt/ot pain rx adjusted monitor renal fxn cardiology follow up dc planning outpt stress test Subjective ROS Limited/Unobtainable: No Constitutional: Reports: malaise, weakness HEENT: Reports: no symptoms Cardiovascular: Reports: no symptoms Respiratory: Reports: no symptoms Gastrointestinal/Abdominal: Reports: no symptoms Genitourinary: Reports: no symptoms Neurologic/Psychiatric: Reports: anxiety, headache Endocrine: Reports: no symptoms Hematologic/Lymphatic: Reports: anemia Allergies: Coded Allergies: ACETAMINOPHEN (Unverified Allergy, Unknown, Shortness of Breath, 10/03/13) shortness of breath and hives CODEINE (Unverified Allergy, Unknown, Shortness of Breath, 10/03/13) sob and hives HYDROCODONE (Unverified Allergy, Unknown, Shortness of Breath, 10/03/13) shortness of breath and hives All Systems: reviewed and negative except above Subjective no new complaints. remains in sinus. trop neg this am. cards noted Objective Last 24 Hour Vital Signs Date Time Temp Pulse Resp B/P (MAP) Pulse Ox O2 Delivery O2 Flow Rate FiO2 10/22/18 04:00 71 10/22/18 04:00 97.5 64 18 142/65 (90) 100 10/22/18 00:00 61 10/22/18 00:00 97.3 60 16 131/67 (88) 100 10/21/18 21:00 Room Air 10/21/18 20:00 98.1 62 18 130/68 (88) 97 10/21/18 20:00 60 10/21/18 19:38 72 18 99 Room Air 21 10/21/18 19:36 99 Room Air 21 10/21/18 19:36 71 18 99 Room Air 21 10/21/18 16:00 98.3 64 20 116/65 (82) 99 10/21/18 16:00 61 10/21/18 12:00 98.4 64 20 122/65 (84) 97 10/21/18 12:00 63 10/21/18 09:54 78 146/68 10/21/18 09:53 146/68 10/21/18 09:53 146/68 10/21/18 09:00 Room Air 10/21/18 08:30 78 18 98 Room Air 21 10/21/18 08:30 98 Room Air 21 10/21/18 08:28 79 18 98 Room Air 21 Intake and Output 10/21/18 10/22/18 18:59 06:59 Intake Total 970 ml 320 ml Balance 970 ml 320 ml Intake Oral 970 ml 320 ml # Voids 3 2 Laboratory Tests 10/22/18 06:25: White Blood Count 3.0L, Red Blood Count 4.27L, Hemoglobin 12.4L, Hematocrit 37.4L, Mean Corpuscular Volume 88, Mean Corpuscular Hemoglobin 29.0, Mean Corpuscular Hemoglobin Concent 33.1, Red Cell Distribution Width 14.2, Platelet Count 131L, Mean Platelet Volume 7.8, Neutrophils (%) (Auto) , Lymphocytes (%) ( Auto) , Monocytes (%) (Auto) , Eosinophils (%) (Auto) , Basophils (%) (Auto) , Neutrophils % (Manual) [Pending], Lymphocytes % (Manual) [Pending], Platelet Estimate [Pending], Platelet Morphology [Pending], Sodium Level 140, Potassium Level 4.4, Chloride Level 110H, Carbon Dioxide Level 23, Anion Gap 7, Blood Urea Nitrogen 37H, Creatinine 1.8H, Estimat Glomerular Filtration Rate , Glucose Level 136H, Calcium Level 8.7, Magnesium Level 2.0, Total Bilirubin 0.3 , Aspartate Amino Transf (AST/SGOT) 15, Alanine Aminotransferase (ALT/SGPT) 20, Alkaline Phosphatase 68, Troponin I 0.035, Pro-B-Type Natriuretic Peptide 733H, Total Protein 5.9L, Albumin 2.8L, Globulin 3.1, Albumin/Globulin Ratio 0.9L Height (Feet): 5 Height (Inches): 8.00 Weight (Pounds): 174 Objective General Appearance: WD/WN, alert Neck: supple Cardiovascular: irregular rhythm Respiratory/Chest: chest wall non-tender, lungs clear, normal breath sounds, no respiratory distress Abdomen: normal bowel sounds, non tender, soft, no organomegaly Edema: no edema noted Arm (L), no edema noted Arm (R), no edema noted Leg (L), no edema noted Leg (R), no edema noted Pedal (L), no edema noted Pedal (R), no edema noted Generalized 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
[2018-10-22] MEDS: Aspirin EC 81mg tab ORAL SCH (09:06)
[2018-10-22] MEDS: Eliquis 2.5mg tablet ORAL SCH (09:06)
[2018-10-22] MEDS: Imdur 30mg tab ORAL SCH (09:07)
[2018-10-22] MEDS: Lyrica 50mg cap ORAL SCH (09:08)
[2018-10-22] MEDS: Flonase Nasal Inhaler 16gm NASAL SCH (09:08)
--- NOTE | 2018-10-22 11:55 | NUR ---
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
[2018-10-22 12:00] VITALS: BP 126/66
--- NOTE | 2018-10-22 13:00 | NUR ---
NURSE NOTES: Report given to [facility] nurse Deanna and awaiting on ambulance for transportation.
--- NOTE | 2018-10-22 14:10 | NUR ---
NURSE NOTES: Discharge instruction given, and patient verbalized understanding. Patient is in stable condition no acute distress/SOB noted. Vital signs are stable, heart monitor and IV removed. skin patent, no sign of bleeding. Belonging check done signed by patient. Patient left with ambulance personal via [facility].
--- NOTE | 2018-10-23 03:31 | Progress Note ---
DATE: 10/22/2018 CARDIOLOGY PROGRESS NOTE SUBJECTIVE: The patient has no chest pain, palpitations, or shortness of breath. He is maintaining sinus rhythm. He is now on full anticoagulation with apixaban. OBJECTIVE: VITAL SIGNS: Blood pressure 142/65, pulse 64, and respirations 18. LUNGS: With diminished breath sounds. No wheezing or rales. CARDIAC: Regular rhythm and rate. Normal S1, S2 with a fourth heart sound. ABDOMEN: Soft. EXTREMITIES: No edema. IMPRESSION: 1. Chronic ischemic heart disease. 2. Paroxysmal atrial fibrillation. 3. Advanced chronic obstructive pulmonary disease. 4. Pulmonary hypertension. 5. Hypertensive heart disease. PLAN: 1. Continue anticoagulation. 2. Maintain current cardiovascular regimen. 3. Avoid cigarettes. 4. Continue current respiratory therapy. 5. Stable for outpatient rehabilitation. 6. We will schedule outpatient stress test once pulmonary parameters have been optimized. mAado Vargas M.D. DR: JAI JOB#: [id number] CC:
--- NOTE | 2018-10-23 11:08 | Diagnostic Imaging Report ---
APPROVED REPORT CPT Code: 39030 Present Symptoms Comments: AMS BILATERAL: Imaging reveals a patent deep venous system bilaterally. There is no evidence of thrombus within the femoral, popliteal or tibial segments. The greater saphenous veins are also within normal limits. Doppler indicates normal spontaneous flow within these segments.
== END 2018-10-22 14:15 | DRG 280 ==
LOC: 4E 19:12 → 2E 20:20
DX: I21.9 Acute myocardial infarction, unspecified (principal); I50.33 Acute on chronic diastolic (congestive) heart failure; J18.9 Pneumonia, unspecified organism; N17.9 Acute kidney failure, unspecified; E44.1 Mild protein-calorie malnutrition; I13.0 Hypertensive heart and chronic kidney disease with heart failure and stage 1 through stage 4 chronic kidney disease, or unspecified chronic kidney disease; M54.12 Radiculopathy, cervical region; H35.30 Unspecified macular degeneration; M54.16 Radiculopathy, lumbar region; E11.9 Type 2 diabetes mellitus without complications; Z88.6 Allergy status to analgesic agent; E11.22 Type 2 diabetes mellitus with diabetic chronic kidney disease; N18.9 Chronic kidney disease, unspecified; I25.9 Chronic ischemic heart disease, unspecified; I45.10 Unspecified right bundle-branch block; J43.8 Other emphysema; I48.0 Paroxysmal atrial fibrillation
CPT/HCPCS: 36415; 71046; 72040; 80053; 80061; 81001; 82550; 82553; 82962; 83735; 83880; 84484; 85007; 85025; 93005; 93306; 93970; 94640; J1815; J2405

== ENCOUNTER 2018-12-29 09:14 | Inpatient (IN) | payer MEDICARE ==
[~2018-12-29] VITALS: Ht 170.2 cm; Wt 78.7 kg
[~2018-12-29 09:14] MED LIST changes: +METFORMIN HCL500 M1 ORAL
[2018-12-29 17:46] VITALS: BP 162/90
--- NOTE | 2018-12-29 18:06 | NUR ---
NURSE NOTES: Admitted pt from home. Pt awake, A/O x 4, calm and cooperative. poor eye sight, no glasses. complained of neck, shoulder and back pain, 5/10. IV inserted left forearm 22G, saline lock. Skins intact. Belongings with pt, refused to save grossman in the safe. notified MD regarding adm order, waiting for order. call light within reach. bed in low position, bed alarm on . fall precaution maintained. will continue to monitor.
--- NOTE | 2018-12-29 18:12 | NUR ---
NURSE NOTES: Received cardiac diet order. will continue to monition.
--- NOTE | 2018-12-29 19:11 | NUR ---
HAND-OFF: Report given to Justin LEAL.
[2018-12-29] MEDS ORDERED: Morphine Sulfate 2mg/ml Inj(IV/IM USE ONLY) IVP PRN (19:15)
[2018-12-29] MEDS ORDERED: Lactulose 20gm/30ml UDC ORAL PRN (19:15)
--- NOTE | 2018-12-29 19:30 | NUR ---
NURSE NOTES: Patient received ambulating in room, no acute distress at this time. Needs attended, call light in reach. WIll continue to monitor.
[2018-12-29 19:59] VITALS: BP 153/78
[2018-12-29] MEDS ORDERED: Tamsulosin 0.4mg cap ORAL SCH (21:00)
[2018-12-29] MEDS: Tamsulosin 0.4mg cap ORAL SCH (21:35)
--- NOTE | 2018-12-29 22:30 | NUR ---
NURSE NOTES: Patient c/o pain on left lower back after ambulating to the bathroom. PRN pain medication given as ordered. Heat pack provided. O2 NC provided for patient for SOB d/t pain. O2 sat at 100%.
[2018-12-29] MEDS: HYDROcodone/Acetamin 10/325 tab ORAL PRN (22:38)
[2018-12-30] VITALS: BP 140/64
--- NOTE | 2018-12-30 07:06 | NUR ---
HAND-OFF: Report given to Sheryl LEAL.
--- NOTE | 2018-12-30 07:11 | NUR ---
NURSE NOTES: Pt resting in bed. complained of abd pain 08/22. denies N/V. call light within reach. will continue to monitor.
[2018-12-30 08:00] VITALS: BP 161/82
[2018-12-30 08:46] LABS: BASOPHILS % (AUTO) 0.7 % (0.0-2.0); EOSINOPHILS % (AUTO) 3.8 % (0.0-3.0); HEMATOCRIT 39.3 % (42.0-52.0); LYMPHOCYTES % (AUTO) 36.7 % (20.0-45.0); MEAN CORPUSCULAR VOLUME 92 FL (80-99); MONOCYTES % (AUTO) 10.6 % (1.0-10.0); NEUTROPHILS % (AUTO) 48.2 % (45.0-75.0); PLATELET COUNT 164 K/UL (150-450); RED BLOOD COUNT 4.29 M/UL (4.70-6.10); WHITE BLOOD COUNT 3.6 K/UL (4.8-10.8)
[2018-12-30] MEDS: Losartan 50mg tab ORAL SCH (08:52)
[2018-12-30] MEDS: Promethazine Plain 6.25mg/5ml ORAL SCH ×3 (08:53→17:05)
[2018-12-30] MEDS: Flonase Nasal Inhaler 16gm NASAL SCH (08:55)
[2018-12-30] MEDS ORDERED: Irbesartan 150mg tablet ORAL SCH (09:00)
[2018-12-30 09:10] LABS: ALANINE AMINOTRANSFERASE 12 U/L (12-78); ALBUMIN 2.7 G/DL (3.4-5.0); ALBUMIN/GLOBULIN RATIO 0.8 (1.0-2.7); ALKALINE PHOSPHATASE 85 U/L (46-116); ANION GAP 8 mmol/L (5-15); ASPARTATE AMINO TRANSFERASE 13 U/L (15-37); BILIRUBIN,TOTAL 0.4 MG/DL (0.2-1.0); BLOOD UREA NITROGEN 19 mg/dL (7-18); CARBON DIOXIDE 24 MMOL/L (21-32); CHLORIDE 108 MMOL/L (98-107); CREATININE 1.6 MG/DL (0.55-1.30); POTASSIUM 3.8 MMOL/L (3.5-5.1); SODIUM 140 MMOL/L (136-145)
--- NOTE | 2018-12-30 09:15 | History and Physical Report ---
DATE OF ADMISSION: 12/29/2018 CHIEF COMPLAINT: Intractable back pain. HISTORY OF PRESENT ILLNESS: The patient is an unfortunate 83-year-old male. He has a history of severe spinal stenosis, degenerative disc disease, hypertension, COPD, chronic kidney disease, and diabetes. He has had worsening intractable lower back pain, was unable to ambulate due to severe pain. He has failed to respond to conservative therapy with oral pain medications and is now admitted for further evaluation and care. The patient denies any fevers or chills. He has had no cough. No shortness of breath. PAST MEDICAL HISTORY: As above. PAST SURGICAL HISTORY: Includes back and neck surgery. CURRENT MEDICATIONS: Reconciled and reviewed. ALLERGIES: Include codeine and hydrocodone. FAMILY HISTORY: Noncontributory. SOCIAL HISTORY: There is no known history of alcohol or drugs. The patient does smoke. REVIEW OF SYSTEMS: GENERAL: No fevers or chills. HEENT: No headaches or visual changes. CARDIOPULMONARY: No chest pain or shortness of breath. GASTROINTESTINAL: No nausea or vomiting. GENITOURINARY: No urgency or frequency. MUSCULOSKELETAL: Positive back pain. NEUROLOGIC: No evidence of seizures. PHYSICAL EXAMINATION: VITAL SIGNS: Temperature 98, pulse was 76, respirations 18, blood pressure 140/64. GENERAL: The patient is well-developed, no apparent distress. HEART: Regular rate and rhythm. LUNGS: Clear. ABDOMEN: Soft, nontender, nondistended. EXTREMITIES: No clubbing, cyanosis, or edema. LABORATORY DATA: Laboratories are pending. ASSESSMENT: This is an 83-year-old male, hypertension, diabetes, ischemic cardiomyopathy, COPD, chronic kidney disease, diabetes, admitted with complaints of severe intractable back pain. 1. Intractable back pain. 2. Severe spinal stenosis. 3. Diabetes. 4. Hypertension. 5. COPD. 6. CKD. 7. Ischemic cardiomyopathy. PLAN: 1. IV pain medications. 2. Consider pain management evaluation for epidural. 3. Respiratory treatments O2. 4. PT, OT. 5. Continue outpatient cardiac regimen. Bill Jackson M.D. DR: AKIN JOB#: [id number] CC:
[2018-12-30 12:00] VITALS: BP 99/54
[2018-12-30] MEDS: HYDROcodone/Acetamin 10/325 tab ORAL PRN (13:16)
[2018-12-30 16:00] VITALS: BP 150/74
--- NOTE | 2018-12-30 17:30 | NUR ---
NURSE NOTES: pts on 2L O2 via NC, sat 96-97%, no wheezing, no SOB. will continue to monitor.
[2018-12-30 20:00] VITALS: BP 147/72
--- NOTE | 2018-12-30 20:00 | NUR ---
NURSE NOTES: Received patient ambulating in room, no acute distress at this time, able to verbalize needs. Needs attended, call light within reach.
[2018-12-30] MEDS: Tamsulosin 0.4mg cap ORAL SCH (20:54)
[2018-12-31 04:00] VITALS: BP 140/70
--- NOTE | 2018-12-31 07:30 | NUR ---
HAND-OFF: Report given to ELVIS Lam.
--- NOTE | 2018-12-31 07:56 | NUR ---
NURSE NOTES: received report from Walker Saucedo. Patient Awake and alert at bedside. No c/o pain or discomfort. Will follow
[2018-12-31 08:00] VITALS: BP 133/63
[2018-12-31] MEDS: Promethazine Plain 6.25mg/5ml ORAL SCH ×3 (08:46→17:18)
[2018-12-31] MEDS: Losartan 50mg tab ORAL SCH (08:47)
[2018-12-31] MEDS: Flonase Nasal Inhaler 16gm NASAL SCH (08:48)
[2018-12-31] MEDS: HYDROcodone/Acetamin 10/325 tab ORAL PRN ×2 (09:40→16:17)
[2018-12-31] MEDS ORDERED: Albuterol/Ipratropium 3ml neb HHN PRN (10:15)
[2018-12-31 12:00] VITALS: BP 123/70
--- NOTE | 2018-12-31 13:15 | NUR ---
HAND-OFF: Report given to Walker Joya. Plan of care endorsed.
--- NOTE | 2018-12-31 13:15 | NUR ---
NURSE NOTES: Received pt in bed, AAO x 4. No c/o pain/distress at this moment. IV 22g L FA intact and patent, with saline lock. Bed in the lowest and locked. Call light within reach. Will continue to monitor
[2018-12-31 16:00] VITALS: BP 135/77
--- NOTE | 2018-12-31 16:59 | General Progress Note ---
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 ICD Codes: J43.8 - COPD (chronic obstructive pulmonary disease) with emphysema SNOMED: 61338449 (2) severe neck pain (3) Diabetes mellitus ICD Codes: E11.9 - Diabetes mellitus SNOMED: 21776384 (4) Back pain ICD Codes: M54.9 - Back pain SNOMED: 233262510 Status: stable Assessment/Plan: iv pain rx pt/ot cont bp rx will need snf Subjective ROS Limited/Unobtainable: No Constitutional: Reports: malaise, weakness HEENT: Reports: no symptoms Cardiovascular: Reports: no symptoms Respiratory: Reports: no symptoms Gastrointestinal/Abdominal: Reports: no symptoms Genitourinary: Reports: no symptoms Neurologic/Psychiatric: Reports: anxiety, depressed, emotional problems Endocrine: Reports: no symptoms Hematologic/Lymphatic: Reports: no symptoms Allergies: Coded Allergies: ACETAMINOPHEN (Unverified Allergy, Unknown, Shortness of Breath, 10/03/13) shortness of breath and hives CODEINE (Unverified Allergy, Unknown, Shortness of Breath, 10/03/13) sob and hives HYDROCODONE (Unverified Allergy, Unknown, Shortness of Breath, 10/03/13) shortness of breath and hives All Systems: reviewed and negative except above Subjective c/o severe intractable back pain and neck pain. relieved with morphine. chronic pain, no new weakness or numbness Objective Last 24 Hour Vital Signs Date Time Temp Pulse Resp B/P (MAP) Pulse Ox O2 Delivery O2 Flow Rate FiO2 12/31/18 16:00 97.7 61 18 135/77 (96) 98 12/31/18 12:00 98.1 66 18 123/70 (87) 96 12/31/18 10:27 98.8 12/31/18 09:09 99 Nasal Cannula 2.0 28 12/31/18 09:08 78 18 99 Nasal Cannula 2.0 28 12/31/18 09:07 78 18 99 Nasal Cannula 2.0 28 12/31/18 09:00 Nasal Cannula 2.0 12/31/18 08:47 133/63 12/31/18 08:47 80 133/63 12/31/18 08:00 98.8 80 18 133/63 (86) 98 12/31/18 04:00 98.4 67 20 140/70 (93) 98 12/30/18 23:29 Nasal Cannula 2.0 12/30/18 20:14 Nasal Cannula 2.0 28 12/30/18 20:13 Nasal Cannula 2.0 28 12/30/18 20:00 98.3 75 20 147/72 (97) 98 Intake and Output 12/30/18 12/31/18 19:00 07:00 Intake Total 240 ml 250 ml Balance 240 ml 250 ml Intake Oral 240 ml 250 ml # Voids 3 2 Height (Feet): 5 Height (Inches): 7.00 Weight (Pounds): 175 General Appearance: WD/WN, alert Neck: supple Cardiovascular: normal rate, regular rhythm Respiratory/Chest: chest wall non-tender, lungs clear, normal breath sounds Abdomen: normal bowel sounds, non tender, soft Edema: no edema noted Arm (L), no edema noted Arm (R), no edema noted Leg (L), no edema noted Leg (R), no edema noted Pedal (L), no edema noted Pedal (R), no edema noted Generalized Neurologic: call center agent II-XII grossly normal, abnormal gait, alert, oriented x 3 Bill Jackson MD Dec 31, 2018 16:59
--- NOTE | 2018-12-31 18:46 | NUR ---
CASE MANAGEMENT: REVIEW 83Y/MALE PRESENTED TO ED FROM HOME CC: INTRACTABLE BACK PAIN SI: INTRACTABLE BACK PAIN . SEVERE SPINAL STENOSIS . COPD T 96.9 HR 68 RR 18 BP 162/90 SAT 98% NC/2L WBC 3.6 H/H 13.0/39.3 BUN 19 CR 1.6 IS: MDI TX PATIENT ADMITTED TO MED/SURG UNIT 12/29/2018 DCP: PATIENT IS FROM HOME
[2018-12-31] MEDS ORDERED: TESTOSTERO200 MG/1 M IM (18:48)
[2018-12-31] MEDS ORDERED: NAMENDA10 MG ORAL (18:49)
[2018-12-31] MEDS ORDERED: VITAMIN D250000 UNI1 ORAL (18:50)
[2018-12-31] MEDS ORDERED: LYRICA100 MG ORAL (18:56)
[2018-12-31] MEDS ORDERED: OMEPRAZOLE20 M2 ORAL (18:57)
--- NOTE | 2018-12-31 19:20 | NUR ---
HAND-OFF: Report given to ELVIS Ureña.
--- NOTE | 2018-12-31 19:20 | NUR ---
NURSE NOTES: Received a report from ELVIS Wyatt. Pt is in stable condition. AAOX4. Able to make needs known. Uses nasal cannula 2L. No c/o pain/discomfort. IV site is patent and intact. Bed in lowest position. Bed alarm is on. Call light within reach. Will continue to monitor.
[2018-12-31 20:00] VITALS: BP 140/63
[2018-12-31] MEDS: Tamsulosin 0.4mg cap ORAL SCH (21:39)
[2019-01-01] VITALS (7 sets, daily range): BP systolic 115–145; BP diastolic 57–80
--- NOTE | 2019-01-01 07:10 | NUR ---
HAND-OFF: Report given to Saadia Ndiaye RN.
--- NOTE | 2019-01-01 07:11 | NUR ---
NURSE NOTES: Received patient sleeping comfortably in bed. IV site at left forearm, 22 gauge, saline lock. Bed at lowest level with 3 side rails up. Call light within reach. IN no apparent distress at this time. Will continue to monitor.
[2019-01-01] MEDS: Flonase Nasal Inhaler 16gm NASAL SCH (09:00)
[2019-01-01] MEDS: Promethazine Plain 6.25mg/5ml ORAL SCH ×4 (09:00→17:38)
[2019-01-01] MEDS: Losartan 50mg tab ORAL SCH (09:13)
--- NOTE | 2019-01-01 15:45 | Discharge Summary ---
DATE OF ADMISSION: 12/29/2018 DATE OF DISCHARGE: 01/01/2019 ADMISSION DIAGNOSES: 1. Intractable back pain. 2. Ischemic cardiomyopathy. 3. COPD. 4. Hypertension. 5. Diabetes. 6. Acute on chronic renal failure. DISCHARGE DIAGNOSES: 1. Intractable back pain. 2. Ischemic cardiomyopathy. 3. COPD. 4. Hypertension. 5. Diabetes. 6. Acute on chronic renal failure. HOSPITAL COURSE: The patient is a pleasant, but unfortunate male with multiple medical problems including history of chronic kidney disease, COPD, ischemic cardiomyopathy. He has a history of severe degenerative disc disease and cervical radiculopathy, presented with complaints of dizziness, shortness of breath, severe back and neck pain. He required IV pain medications every four hours for pain control. Laboratory showed acute renal insufficiency. He was gently hydrated. He was continued on his regular cardiac medications. On discharge, the patient's pain was better controlled. He was not required IV pain medications, will be discharged to a long term facility for rehabilitation therapy. We will try to schedule the patient for an epidural as an outpatient. DISCHARGE MEDICATIONS: Please see discharge medication list for discharge medications. DIET: Cardiac diet. ACTIVITY: Ad-devang. FOLLOWUP: The patient will follow up in one to two days at the long term facility. Bill Jackson M.D. DR: AKIN JOB#: [id number] CC:
[2019-01-01] MEDS ORDERED: Lexiscan 0.4mg/5ml syringe IV PRN (17:45)
--- NOTE | 2019-01-01 18:15 | Progress Note ---
DATE: 12/31/2018 CARDIOLOGY PROGRESS NOTE Late entry. SUBJECTIVE: Status remains unchanged. No new complaints. Some cough and back pain. No reported chest pain. OBJECTIVE: VITAL SIGNS: Blood pressure 135/77, pulse 61, and respirations 18. LUNGS: Diminished breath sounds. No wheezing. HEART: Regular rhythm and rate. Normal S1, S2 with a fourth heart sound. ABDOMEN: Soft and nontender. EXTREMITIES: No edema. NEUROLOGIC: Nonfocal. IMPRESSION: 1. Stable angina. 2. History of recent myocardial infarction. 3. COPD. 4. Intractable back pain due to degenerative disk disease. 5. Moderate protein/calorie malnutrition. PLAN: 1. Physical therapy 2. Symptom-guided pain control. 3. Continue anti-platelet therapy. 4. Protein supplement with diet. 5. Outpatient stress test for assessment of coronary flow reserve once back pain has been controlled. Amado Vargas M.D. DR: JAI JOB#: [id number] CC: MUSA
[2019-01-01] MEDS: Aspirin Baby 81mg ORAL SCH (18:29)
--- NOTE | 2019-01-01 19:14 | NUR ---
HAND-OFF: Report given to ELVIS Yancey.
--- NOTE | 2019-01-01 20:00 | NUR ---
NURSE NOTES: Patient received in bed, denies chest pain at this time. Made aware regarding stress test tomorrow, in verbal agreement. Explained regarding NPO status after midnight, patient agreeable. Will continue plan of care.
[2019-01-01] MEDS: Tamsulosin 0.4mg cap ORAL SCH (20:16)
--- NOTE | 2019-01-01 21:00 | Consultation ---
DATE OF CONSULTATION: 12/30/2018 CARDIOLOGY CONSULTATION REASON FOR CONSULTATION: Back pain in the setting of coronary artery disease and recent myocardial infarction. HISTORY OF PRESENT ILLNESS: This is an 83-year-old [place] male with multiple risk factors for coronary artery disease. He suffered a non ST-elevation myocardial infarction here in October of 2018. The infarct was precipitated by significant obstructive lung disease and bronchospasm and was treated medically. The patient notes that since his heart attack, he has had occasional episodes of chest pain, not always exertional and usually self limited, although occasionally, he has taken nitroglycerin sublingually. His concern is more his back pain over the past few weeks and that has been what he has noted and been suffering with. PAST MEDICAL HISTORY: Includes COPD, spinal stenosis, degenerative disk disease, hypertensive heart disease, chronic right bundle-branch block, chronic kidney disease, type 2 diabetes mellitus, and prior laminectomies. CURRENT MEDICATIONS: Reviewed and reconciled. ALLERGIES: Include codeine and hydrocodone. SOCIAL HISTORY: Greater than [id number] smoker. Active at this time. Social alcohol. No substance abuse. He lives with his . FAMILY HISTORY: Noncontributory. REVIEW OF SYSTEMS: A 10-point review of systems performed. All systems negative other than outlined above. PHYSICAL EXAM: VITAL SIGNS: Afebrile, blood pressure ranging from 99/54 to 150/74, heart rate 70 to 92, respiratory rate 20, and afebrile. GENERAL: A male pattern balding. HEENT: Conjunctivae pink. Oropharynx clear. NECK: Supple. Jugular venous pressure normal. No bruits. LUNGS: Coarse breath sounds. No wheezes or rales. CARDIAC: Regular rhythm and rate. Normal S1, S2 with a fourth heart sound. ABDOMEN: Soft and nontender. EXTREMITIES: Good pulses. No edema. NEUROLOGIC: Nonfocal. LABORATORY DATA: BUN 19, creatinine 1.6, and glucose 144. Potassium 3.8. Albumin 2.7. White count 3.6 and hemoglobin 13. EKG, sinus rhythm, right bundle-branch block, nonspecific ST-T wave changes. IMPRESSION: 1. Intractable back pain in the setting of degenerative disk disease, spinal stenosis, and prior laminectomies. 2. Coronary artery disease. 3. Status post myocardial infarction in October of 2017, now with stable angina. 4. COPD with paroxysmal bronchospasm. 5. Hypertensive heart disease with labile blood pressure. 6. Type 2 diabetes mellitus with adequate glucose control and diabetic nephropathy. PLAN: 1. Antiplatelet therapy. 2. Check lipid panel. 3. Statin drug for LDL goal less than 70. 4. Pain control. 5. Respiratory hygiene. 6. Encouraged smoking cessation even at this late stage in his life. 7. Consider myocardial perfusion scan for risk stratification once acute back symptoms have been diagnosed and treated. Amado Vargas M.D. DR: JAI JOB#: [id number] CC:
--- NOTE | 2019-01-01 21:45 | Progress Note ---
DATE: 01/01/2019 SUBJECTIVE: The patient noted chest pain today unprovoked while in bed. It resolved ultimately after 10 to 20 minutes. He had a troponin level that was 0.032. His EKG did not reveal any acute changes and was reviewed. The patient's aspirin dosing was not on his MAR, but that was corrected today. OBJECTIVE: VITAL SIGNS: Blood pressure 138/76, pulse 80, and respirations 18. LUNGS: Clear. CARDIAC: Regular. Normal S1, S2 with a fourth heart sound. Chest wall without focal discomfort. ABDOMEN: Soft and nontender. EXTREMITIES: No edema. IMPRESSION: 1. Anginal episode. 2. Recent myocardial infarction. 3. COPD. 4. Type 2 diabetes mellitus. 5. Diabetic microangiopathy. 6. Diabetic neuropathy. 7. Diabetic nephropathy. 8. Degenerative disk disease with acute pain syndrome. PLAN: 1. Continue anti-platelet therapy. 2. Check lipid panel. 3. Noninvasive assessment of coronary flow reserve will be ordered. Further recommendations to follow. 4. No beta-blockers in view of the severity of his underlying obstructive lung disease. Amado Vargas M.D. DR: JAI JOB#: [id number] CC:
[2019-01-02 04:00] VITALS: BP 105/57
[2019-01-02 07:12] LABS: ALANINE AMINOTRANSFERASE 14 U/L (12-78); ALBUMIN 2.9 G/DL (3.4-5.0); ALBUMIN/GLOBULIN RATIO 0.9 (1.0-2.7); ALKALINE PHOSPHATASE 87 U/L (46-116); ANION GAP 7 mmol/L (5-15); ASPARTATE AMINO TRANSFERASE 13 U/L (15-37); BILIRUBIN,TOTAL 0.4 MG/DL (0.2-1.0); BLOOD UREA NITROGEN 33 mg/dL (7-18); CALCIUM 8.9 MG/DL (8.5-10.1); CARBON DIOXIDE 25 MMOL/L (21-32); CHLORIDE 110 MMOL/L (98-107); CHOLESTEROL 115 MG/DL (< 200); CREATININE 1.7 MG/DL (0.55-1.30); HDL CHOLESTEROL 46 MG/DL (40-60); POTASSIUM 4.2 MMOL/L (3.5-5.1); SODIUM 142 MMOL/L (136-145); TRIGLYCERIDES 56 MG/DL (30-150)
--- NOTE | 2019-01-02 07:25 | NUR ---
HAND-OFF: Report given to Lesvia LEAL.
--- NOTE | 2019-01-02 07:30 | NUR ---
NURSE NOTES: Received patient in bed, awake, alert and oriented x4. Not in acute respiratory/cardiac distress. Patient denies any chest pain or discomfort @ this time. Patient is ambulatory. Scheduled for NM test. IV intact, no s/s of infiltration. Bed is in lowest position and locked. Call light within reach. Will continue plan of care.
--- NOTE | 2019-01-02 07:45 | NUR ---
NURSE NOTES: Received troponin I result of 0.64 from Suly from micro. RN informed DR. Jackson and informed with new order to transfer patient to tele. Patient denies chest pain or SOB @ this time. RN made house painter aware of transfer.
[2019-01-02 08:00] VITALS: BP 137/68
--- NOTE | 2019-01-02 08:13 | NUR ---
RESPIRATORY NOTE: Unable to scan the medicine. ELVIS Blake witnessed Symbicort inhaler given at 0813. Pt is awake and alert, no SOB or resp distress noted.
--- NOTE | 2019-01-02 08:30 | NUR ---
NURSE NOTES: Patient wants to be transferred to tele with his . Per night warehouse manager, there is only one room available in tele, will think about transferring to tele.
--- NOTE | 2019-01-02 09:00 | NUR ---
CASE MANAGEMENT:REVIEW 02/02/19 SI: MICROVASCULAR ANGINA. COPD ELEVATED TROPONIN 97.5 20 116/54 98% ON 2L/NC TROPONIN (+) 0.064 IS: STRESS TEST ~ IV LEXISCAN ASA PO QD NORVASC PO QD COZAAR PO QD PROTONIX PO QD FLOMAX PO QHS IVF@100/HR : MED/SURG
--- NOTE | 2019-01-02 09:30 | NUR ---
NURSE NOTES: patient agreed to be transferred to tele himself.
[2019-01-02] MEDS: Aspirin Baby 81mg ORAL SCH (09:31)
[2019-01-02] MEDS: Flonase Nasal Inhaler 16gm NASAL SCH (09:33)
--- NOTE | 2019-01-02 10:00 | NUR ---
NURSE NOTES: patient complained of mild dull chest pain after he talked to his . Patient denies SOB. Given aspirin as ordered. V/S obtained. Blood pressure 144/72, pulse is 78. Afebrile. RN spoke to Dr. Jackson and relayed patient's condition, RN suggested EKG but Dr. Jackson wants to talk to Dr. Vargas prior to order. Dr. Mcgraw said it is ok to give scheduled blood pressure medication prior to stress test. Awaiting for return call.
--- NOTE | 2019-01-02 10:40 | NUR ---
NURSE NOTES: Patient is calm @ this time and no complains of chest pain @ this time.Patient is resting comfortly.
[2019-01-02] MEDS: Losartan 50mg tab ORAL SCH (10:47)
[2019-01-02] MEDS: Promethazine Plain 6.25mg/5ml ORAL SCH (10:48)
--- NOTE | 2019-01-02 10:50 | NUR ---
NURSE NOTES: Patient is off the unit for NM test
[2019-01-02] MEDS ORDERED: Morphine Sulfate 2mg/ml Inj(IV/IM USE ONLY) IVP PRN ×2 (11:15→13:39)
[2019-01-02] MEDS ORDERED: HYDROcodone/Acetamin 10/325 tab ORAL PRN ×3 (11:15→19:24)
--- NOTE | 2019-01-02 11:28 | NUR ---
DISCHARGE PLANNING PATIENT HAS BEEN REFERRED TO AND ACCEPTED AT [facility] HAS BEEN UPDATED AWAIT OFFICIAL DISCHARGE ORDER
--- NOTE | 2019-01-02 11:34 | NUR ---
NURSE NOTES: patient came back from [place] dept in stable condition.
[2019-01-02 12:00] VITALS: BP 133/66
[2019-01-02] MEDS ORDERED: Lactulose 20gm/30ml UDC ORAL PRN (13:39)
[2019-01-02] MEDS ORDERED: Albuterol/Ipratropium 3ml neb HHN PRN (13:39)
[2019-01-02] MEDS ORDERED: Lexiscan 0.4mg/5ml syringe IV PRN ×2 (13:40→13:45)
--- NOTE | 2019-01-02 13:45 | NUR ---
NURSE NOTES: transferred patient to room 209-1 without any issue during transfer. patient is alert and oriented x4. Complains of mild,dull chest pain but patient says he is ok. Patient is calm. All belongings accounted for. Skin intact, patient is ambulatory. IV on left forearm intact, no s/s of infiltration. Endorsed plan of care to Mayra. Patient is on NPO for stress test. Patient wants to keep his wallet with johns. Johns is with the patient.No discrepancy.
--- NOTE | 2019-01-02 13:45 | NUR ---
NURSE NOTES: Received bedside report from Promise Celmente RN. Pt. in stable condition. Will do belonging check list after stress test.
[2019-01-02 16:00] VITALS: BP 132/78
--- NOTE | 2019-01-02 16:30 | NUR ---
NURSE NOTES: Gave bedside report to Casimiro LEAL. Called Promise Clemente for inventory list to sign off with Casimiro LEAL.
--- NOTE | 2019-01-02 16:47 | NUR ---
Myocardial perfusion scan complete.
--- NOTE | 2019-01-02 17:00 | NUR ---
NURSE NOTES: Report received from ELVIS Mcknight. Promise Clemente on 4E called for belongings check. Patient aox4 with calm,cooperative affect. Steady gait noted oob. No sign of respiratory or cardiac distress. Bed in lowest, locked position with call alvarez and urinal in reach. Patient had sandwich after lexiscan and is eagerly awaiting dinner. Patient chatting with his on the telephone. NSR on tele. Cont'd [facility] plan of care. Addendum: 01/02/19 at 1818 by Louis Pearson RN Per Dr Vargas, patient clear to transfer back to . Patient asymptomatic and comfortable. [facility] moved to [facility], after 6pm meds given and after patient finished eating dinner. Belongings checked with Promise Clemente and report given to Promise Clemente RN. Chart returned to 4E adn tele box returned to 2E.
--- NOTE | 2019-01-02 17:11 | Diagnostic Imaging Report ---
Indications: Chest pain Technique: Single day single isotope protocol utilized. Initially, resting images obtained using IV administration 10.2 millicuries 99M technetium Myoview. Subsequently, patient underwent Dobutamine stress testing. See cardiology report for details. During dobutamine infusion, IV administration 31.4 mCi 99 M technetium Myoview. SPECT and planar images obtained. SPECT images gated to 8 phases of the cardiac cycle were also obtained, and reformatted into cine images for evaluation of ejection fraction. Comparison: Findings: Patient reached a peak heart rate of 131 bpm, and excess of the target heart rate of 115 bpm. Per cardiology report, patient experienced no symptoms. Per cardiology report, resting EKG demonstrates normal sinus rhythm with evidence a right bundle branch block. No ST-T wave changes were demonstrated during infusion. However, frequent premature ventricular contractions and premature atrial contraction were noted. Imaging demonstrates normal poststress perfusion. No fixed nor reversible post stress perfusion defects.. Calculated post stress ejection fraction 62%. Gated images demonstrate no evidence of focal wall motion abnormality. Impression: Nonischemic clinical response to pharmacologic stress, per cardiology report Nonischemic electrocardiographic response to pharmacologic stress, per cardiology report No imaging findings to suggest ischemia, at level of stress achieved. Calculated post stress ejection fraction 62%
[2019-01-02] MEDS ORDERED: Promethazine Plain 6.25mg/5ml ORAL SCH (18:00)
--- NOTE | 2019-01-02 18:10 | NUR ---
NURSE NOTES: patient came back from tele instable condition. Denies chest pain or discomfort. All belongings accounted for. Patient wants to keep his grossman with him. Skin intact, IV intact, no s/s of infiltration. Bed is in lowest position and locked. Call light within reach. Will continue plan of care.
--- NOTE | 2019-01-02 19:13 | NUR ---
HAND-OFF: Report given to Naye.
[2019-01-02] MEDS: Morphine Sulfate 2mg/ml Inj(IV/IM USE ONLY) IVP PRN (19:41)
[2019-01-02 19:59] VITALS: BP 116/54
--- NOTE | 2019-01-02 20:00 | NUR ---
NURSE NOTES: Patient received ambulating from bathroom to bed, stating severe pain on the back, requesting for morphine instead of norco or percocet.IV infisuign on left arm. Call light in reach. Medicated for pain as ordered. Will continue to monitor.
[2019-01-02] MEDS: Tamsulosin 0.4mg cap ORAL SCH (20:19)
--- NOTE | 2019-01-02 20:30 | Progress Note ---
DATE: 01/02/2019 CARDIOLOGY PROGRESS NOTE SUBJECTIVE: The patient had chest pain this morning. He was transferred to a monitored unit. A repeat troponin was slightly elevated at 0.064. OBJECTIVE: VITAL SIGNS: Blood pressure 144/72, pulse 78, respirations 18, and afebrile. LUNGS: Clear. CARDIAC: Regular. Normal S1, S2 with a fourth heart sound. ABDOMEN: Soft. EXTREMITIES: No edema. DIAGNOSTIC DATA: A myocardial perfusion scan with dobutamine stress was performed. There was no evidence of perfusion abnormalities or left ventricular dysfunction. IMPRESSION: 1. Microvascular angina. No evidence of flow-limiting coronary artery disease. 2. COPD. 3. Hypertensive heart disease. 4. Prerenal azotemia. 5. Acute on chronic kidney injury. 6. Moderate protein-calorie malnutrition. PLAN: 1. Discontinue telemetry. 2. Maximize antianginal and antihypertensive medications. 3. Hydrate by IV route. 4. Reassurance. Amado Vargas M.D. DR: JAI JOB#: [id number] CC:
[2019-01-02] MEDS ORDERED: Tamsulosin 0.4mg cap ORAL SCH (21:00)
[2019-01-02 23:19] VITALS: BP 126/61
[2019-01-03] MEDS: Morphine Sulfate 2mg/ml Inj(IV/IM USE ONLY) IVP PRN ×2 (03:38→15:32)
[2019-01-03 04:00] VITALS: BP 115/61
--- NOTE | 2019-01-03 07:36 | NUR ---
HAND-OFF: Report given to Mary Jo LEAL.
--- NOTE | 2019-01-03 07:40 | NUR ---
NURSE NOTES: Patient received in stable condition, alert and oriented. Breathing unlabored on room air, denies chest pain or SOB at this time. IV fluids running at 100cc/hr. Bed locked in lowest position, call light placed within reach. Will continue to monitor.
[2019-01-03 08:00] VITALS: BP 131/70
[2019-01-03] MEDS: Aspirin Baby 81mg ORAL SCH (08:57)
[2019-01-03] MEDS: Losartan 50mg tab ORAL SCH (08:58)
[2019-01-03] MEDS: Promethazine Plain 6.25mg/5ml ORAL SCH ×3 (08:58→16:58)
[2019-01-03] MEDS ORDERED: Flonase Nasal Inhaler 16gm NASAL SCH (09:00)
[2019-01-03] MEDS ORDERED: Aspirin Baby 81mg ORAL SCH (09:00)
[2019-01-03] MEDS ORDERED: Losartan 50mg tab ORAL SCH (09:00)
[2019-01-03] MEDS: Flonase Nasal Inhaler 16gm NASAL SCH (09:00)
[2019-01-03] MEDS: Albuterol/Ipratropium 3ml neb HHN PRN (09:25)
[2019-01-03] MEDS: Lactulose 20gm/30ml UDC ORAL PRN (11:56)
[2019-01-03 12:00] VITALS: BP 134/71
--- NOTE | 2019-01-03 13:57 | General Progress Note ---
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 ICD Codes: J43.8 - COPD (chronic obstructive pulmonary disease) with emphysema SNOMED: 37921828 (2) severe neck pain (3) Diabetes mellitus ICD Codes: E11.9 - Diabetes mellitus SNOMED: 43232875 (4) Back pain ICD Codes: M54.9 - Back pain SNOMED: 649989251 Status: stable Assessment/Plan: iv pain rx pt/ot antiplt rx cont bp rx ivf monitor renal fxn dc planning home tomorrow. then [facility] on monday Subjective ROS Limited/Unobtainable: No Constitutional: Reports: diaphoresis, weakness HEENT: Reports: no symptoms Cardiovascular: Reports: chest pain Respiratory: Reports: no symptoms Gastrointestinal/Abdominal: Reports: no symptoms Genitourinary: Reports: no symptoms Neurologic/Psychiatric: Reports: no symptoms Endocrine: Reports: no symptoms Hematologic/Lymphatic: Reports: no symptoms Allergies: Coded Allergies: ACETAMINOPHEN (Unverified Allergy, Unknown, Shortness of Breath, 10/03/13) shortness of breath and hives CODEINE (Unverified Allergy, Unknown, Shortness of Breath, 10/03/13) sob and hives HYDROCODONE (Unverified Allergy, Unknown, Shortness of Breath, 10/03/13) shortness of breath and hives All Systems: reviewed and negative except above Subjective c/o severe intractable back pain and neck pain. relieved with morphine. chronic pain, no new weakness or numbness stress test negative yesterday Objective Last 24 Hour Vital Signs Date Time Temp Pulse Resp B/P (MAP) Pulse Ox O2 Delivery O2 Flow Rate FiO2 01/03/19 12:00 98.0 69 20 134/71 (92) 97 01/03/19 09:31 99 Nasal Cannula 2.0 28 01/03/19 09:30 86 18 98 Nasal Cannula 2.0 28 01/03/19 09:29 87 18 99 Nasal Cannula 2.0 28 01/03/19 09:12 79 18 99 Nasal Cannula 2.0 28 01/03/19 09:12 79 18 99 Nasal Cannula 2.0 28 01/03/19 09:01 64 115/61 01/03/19 09:00 Nasal Cannula 2.0 01/03/19 08:58 115/61 01/03/19 08:00 97.6 75 20 131/70 (90) 98 01/03/19 04:08 97.8 01/03/19 04:00 97.8 64 20 115/61 (79) 99 01/02/19 23:19 97.9 69 20 126/61 (82) 99 01/02/19 20:41 Nasal Cannula 2.0 01/02/19 20:09 81 18 98 Nasal Cannula 2.0 28 01/02/19 20:09 81 18 98 Nasal Cannula 2.0 28 01/02/19 19:59 98.2 78 20 116/54 (74) 100 01/02/19 19:59 98 Nasal Cannula 2.0 28 01/02/19 16:00 97.5 84 20 132/78 (96) 95 Intake and Output 01/02/19 01/03/19 19:00 07:00 Intake Total 1040 ml 1600 ml Balance 1040 ml 1600 ml Intake Oral 1040 ml 600 ml IV Total 1000 ml # Voids 4 4 Height (Feet): 5 Height (Inches): 7.00 Weight (Pounds): 173 Objective LUNGS: Clear. CARDIAC: Regular. Normal S1, S2 with a fourth heart sound. Chest wall without focal discomfort. ABDOMEN: Soft and nontender. EXTREMITIES: No edema. Bill Jackson MD Jan 03, 2019 13:57
[2019-01-03 16:00] VITALS: BP 107/54
[2019-01-03 20:00] VITALS: BP 119/63
--- NOTE | 2019-01-03 20:06 | NUR ---
NURSE NOTES: Received patient in bed, awake, alert, oriented, able to make his needs known, VSS, afebrile. Call light is within reach, bed is in low position, locked and alarm is on. Will continue to monitor for safety and comfort.
[2019-01-03] MEDS: Tamsulosin 0.4mg cap ORAL SCH (21:07)
[2019-01-04] VITALS: BP 128/64
[2019-01-04 04:00] VITALS: BP 111/69
--- NOTE | 2019-01-04 07:09 | NUR ---
HAND-OFF: Report given to Randi LEAL.
[2019-01-04 08:00] VITALS: BP 130/77
--- NOTE | 2019-01-04 08:05 | NUR ---
NURSE NOTES: Patient received in stable condition, alert and oriented. Breathing unlabored on room air. Denies SOB or complaints at this time. Patient aware of discharge today. Bed locked in lowest position, call light placed within reach. Will continue to monitor.
--- NOTE | 2019-01-04 08:29 | General Progress Note ---
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 ICD Codes: J43.8 - COPD (chronic obstructive pulmonary disease) with emphysema SNOMED: 02573102 (2) severe neck pain (3) Diabetes mellitus ICD Codes: E11.9 - Diabetes mellitus SNOMED: 62501650 (4) Back pain ICD Codes: M54.9 - Back pain SNOMED: [id number] Status: stable Assessment/Plan: iv pain rx pt/ot antiplt rx cont bp rx ivf monitor renal fxn dc planning home today Subjective ROS Limited/Unobtainable: No Constitutional: Reports: malaise, weakness HEENT: Reports: no symptoms Cardiovascular: Reports: no symptoms Respiratory: Reports: no symptoms Gastrointestinal/Abdominal: Reports: no symptoms Genitourinary: Reports: no symptoms Neurologic/Psychiatric: Reports: numbness, paresthesia Endocrine: Reports: no symptoms Hematologic/Lymphatic: Reports: no symptoms Allergies: Coded Allergies: ACETAMINOPHEN (Unverified Allergy, Unknown, Shortness of Breath, 10/03/13) shortness of breath and hives CODEINE (Unverified Allergy, Unknown, Shortness of Breath, 10/03/13) sob and hives HYDROCODONE (Unverified Allergy, Unknown, Shortness of Breath, 10/03/13) shortness of breath and hives All Systems: reviewed and negative except above Subjective c/o severe intractable back pain and neck pain. relieved with morphine. chronic pain, no new weakness or numbness stress test negative. overall better except for back pain Objective Last 24 Hour Vital Signs Date Time Temp Pulse Resp B/P (MAP) Pulse Ox O2 Delivery O2 Flow Rate FiO2 01/04/19 04:00 97.3 67 19 111/69 (83) 01/04/19 00:00 96.8 67 18 128/64 (85) 01/03/19 21:59 Nasal Cannula 2.0 01/03/19 20:16 68 18 99 Nasal Cannula 2.0 28 01/03/19 20:15 98 Nasal Cannula 2.0 28 01/03/19 20:15 64 18 98 Nasal Cannula 2.0 28 01/03/19 20:00 96.4 69 18 119/63 (81) 01/03/19 16:00 98.3 70 18 107/54 (71) 99 01/03/19 12:00 98.0 69 20 134/71 (92) 97 01/03/19 09:31 99 Nasal Cannula 2.0 28 01/03/19 09:30 86 18 98 Nasal Cannula 2.0 28 01/03/19 09:29 87 18 99 Nasal Cannula 2.0 28 01/03/19 09:12 79 18 99 Nasal Cannula 2.0 28 01/03/19 09:12 79 18 99 Nasal Cannula 2.0 28 01/03/19 09:01 64 115/61 01/03/19 09:00 Nasal Cannula 2.0 01/03/19 08:58 115/61 Intake and Output 01/03/19 01/04/19 18:59 06:59 Intake Total 740 ml 800 ml Balance 740 ml 800 ml Intake Oral 740 ml IV Total 800 ml # Voids 2 Height (Feet): 5 Height (Inches): 7.00 Weight (Pounds): 173 Objective LUNGS: Clear. CARDIAC: Regular. Normal S1, S2 with a fourth heart sound. Chest wall without focal discomfort. ABDOMEN: Soft and nontender. EXTREMITIES: No edema. Bill Jackson MD Jan 04, 2019 08:29
[2019-01-04] MEDS: Losartan 50mg tab ORAL SCH (08:51)
[2019-01-04] MEDS: Aspirin Baby 81mg ORAL SCH (08:51)
[2019-01-04] MEDS: Lactulose 20gm/30ml UDC ORAL PRN (08:51)
[2019-01-04] MEDS: Flonase Nasal Inhaler 16gm NASAL SCH (08:51)
[2019-01-04] MEDS: Promethazine Plain 6.25mg/5ml ORAL SCH (08:52)
[2019-01-04] MEDS: Albuterol/Ipratropium 3ml neb HHN PRN (09:35)
[2019-01-04] MEDS: Morphine Sulfate 2mg/ml Inj(IV/IM USE ONLY) IVP PRN (09:58)
[2019-01-04 11:46] VITALS: BP 117/56
--- NOTE | 2019-01-04 13:10 | NUR ---
NURSE NOTES: Patient discharged to home, to go to [facility] on Monday. Transported by [employer]. RN accompanied both and downstairs. Belongings reviewed and confirmed by the bedside. IV safely removed, covered with gauze and tape.
--- NOTE | 2019-01-05 19:43 | Discharge Summary ---
Discharge Summary Hospital Course Date of Admission Dec 29, 2018 at 16:15 Date of Discharge Jan 04, 2019 at 12:55 Admitting Diagnosis HPI Hospital Course Addendum: Patient complained of chest pain. Initial troponin was 0.32. Repeat troponin was 0.6. EKG did not reveal any acute changes. He was given aspirin. Unable to give beta-soheila due to severity of underlying obstructive lung disease. A myocardial perfusion scan with dobutamine stress was performed. There was no evidence of perfusion abnormalities or left ventricular dysfunction. He was subsequently discharged home. To SNF on 01/07/19. ---I was assigned to complete a discharge summary on this account, I was not involved with the patient's management. --Shima Beck NP Discharge Discharge Disposition Patient was discharged to home. Davina Beck NP Jan 05, 2019 19:43
--- NOTE | 2019-01-05 23:00 | Progress Note ---
DATE: 01/03/2019 CARDIOLOGY PROGRESS NOTE Late entry for 01/03/2019. SUBJECTIVE: The patient had a dobutamine myocardial perfusion scan yesterday, which revealed no evidence of flow-limiting coronary disease. The patient continues to have episodes of positional chest discomfort, but no shortness of breath. The pain is emanating mostly from his back and neck area. Morphine has been required at times and results in relief. OBJECTIVE: VITAL SIGNS: Blood pressure 134/71, pulse 69, respirations 20. Afebrile. NECK: Positive supraclavicular and posterior neck trigger point. LUNGS: With diminished breath sounds. No wheezing. CARDIAC: Regular rhythm and rate. Normal S1, S2 with a fourth heart sound. ABDOMEN: Soft. EXTREMITIES: No edema. IMPRESSION: 1. Acute on chronic pain due to degenerative disk disease and myofascial spasm. 2. Chronic obstructive pulmonary disease. No active bronchospasm. 3. Hypertensive heart disease with controlled blood pressure. 4. Microvascular coronary artery disease. 5. Chronic right bundle-branch block. 6. Type 2 diabetes mellitus. PLAN: 1. Pain control. 2. Maintain current cardiovascular regimen. 3. Physical and occupational therapy assistance. 4. Maintain anti-platelet therapy and anti-lipid drugs for LDL goal less than 70. 5. Check CK level periodically while on statin drugs. Amado Vargas M.D. DR: DONOVAN JOB#: [id number] CC:
--- NOTE | 2019-01-05 23:15 | Progress Note ---
DATE: 01/04/2019 CARDIOLOGY PROGRESS NOTE SUBJECTIVE: Pain is somewhat better controlled. No shortness of breath. No chest pain noted. Myocardial perfusion scan was negative as previously noted. OBJECTIVE: VITAL SIGNS: Blood pressure 111/69, heart rate 67, respiratory rate 19, and afebrile. MUSCULOSKELETAL: No trigger points today. LUNGS: With diminished breath sounds. No wheezing. HEART: Regular rhythm and rate. Normal S1, S2 with a fourth heart sound. ABDOMEN: Soft. EXTREMITIES: No edema. IMPRESSION: 1. Myofascial spasm and pain. 2. Degenerative disk disease. 3. Osteoarthritis. 4. COPD. 5. Hypertensive heart disease. 6. Microvascular angina. 7. Coronary atherosclerosis. 8. Chronic right bundle-branch block. 9. Type 2 diabetes mellitus. PLAN: 1. Medications reviewed and reconciled. 2. Avoiding smoking stressed with the patient. 3. Discharge planning [facility] to [facility] facility for [facility] and better control of pain. 4. Outpatient cardiology followup has been arranged as well. Amado Vargas M.D. : Arash JOB#: [id number] CC:
--- NOTE | 2019-01-06 13:33 | Cardiology Report ---
APPROVED REPORT EKG Measurement Heart [id number] Normal sinus rhythm Right bundle branch block Septal infarct, age undetermined Abnormal ECG
== END 2019-01-04 12:55 | disposition home or self-care (01) | DRG 552 ==
LOC: 4E 16:15 → 2E 01-02 13:33 → 4E 01-02 18:09
DX: M51.36 Other intervertebral disc degeneration, lumbar region (principal); E44.0 Moderate protein-calorie malnutrition; N17.9 Acute kidney failure, unspecified; M54.12 Radiculopathy, cervical region; I13.10 Hypertensive heart and chronic kidney disease without heart failure, with stage 1 through stage 4 chronic kidney disease, or unspecified chronic kidney disease; I25.118 Atherosclerotic heart disease of native coronary artery with other forms of angina pectoris; N18.9 Chronic kidney disease, unspecified; M48.061 Spinal stenosis, lumbar region without neurogenic claudication; M54.9 Dorsalgia, unspecified; Z88.6 Allergy status to analgesic agent; J44.9 Chronic obstructive pulmonary disease, unspecified; E11.22 Type 2 diabetes mellitus with diabetic chronic kidney disease; I25.5 Ischemic cardiomyopathy; I25.2 Old myocardial infarction; I45.10 Unspecified right bundle-branch block; F17.200 Nicotine dependence, unspecified, uncomplicated; E11.51 Type 2 diabetes mellitus with diabetic peripheral angiopathy without gangrene; E11.40 Type 2 diabetes mellitus with diabetic neuropathy, unspecified
CPT/HCPCS: 36415; 78452; 80053; 80061; 83036; 84484; 85025; 93005; 93017; 94640; 94664; J2405; J7620

== ENCOUNTER 2019-01-24 16:49 | Inpatient (IN) | payer MEDICARE ==
[~2019-01-24] VITALS: Ht 167.6 cm; Wt 78.5 kg
[~2019-01-24 16:49] MED LIST changes: +LYRICA100 MG ORAL; +NAMENDA10 MG ORAL; +OMEPRAZOLE20 M2 ORAL; +TESTOSTERO200 MG/1 M IM; +VITAMIN D250000 UNI1 ORAL
--- NOTE | 2019-01-24 17:09 | NUR ---
ED Nurse Note: PT TO CT VIA KAVIN.
--- NOTE | 2019-01-24 17:24 | Diagnostic Imaging Report ---
Indications: Vertigo Technique: Spiral acquisitions obtained through the brain. Angled axial and coronal 5 x 5 mm slices were reconstructed. Total dose length product 1369.05 mGycm. CTDI vol(s) 70.38 mGy. Dose reduction achieved using automated exposure control Comparison: None. Findings: No acute intracranial hemorrhage or edema, mass effect, nor midline shift. There is minimal periventricular deep white matter low-attenuation, consistent with chronic microvascular ischemic change. Normal nunez-white differentiation otherwise. Intact calvarium. There is bilateral maxillary and ethmoid sinus disease. The mastoids are clear. There is evidence of prior bilateral cataract surgery. Orbits are otherwise unremarkable. Impression: Chronic and age-related changes as described Negative for acute intracranial bleed or mass effect Sinus disease The CT scanner at [facility] is accredited by the [employer] and the scans are performed using protocols designed to limit radiation exposure to as low as reasonably achievable to attain images of sufficient resolution adequate for diagnostic evaluation.
--- NOTE | 2019-01-24 17:25 | NUR ---
ED Nurse Note: PT BACK FROM CT VIA GURNEY. PT WALKED IN TO ER TODAY FROM HOME. AOX4. PT C/O DIZZINESS, LIGHTHEADEDNESS, HEADACHE, AND NAUSEA X 4 DAYS AGO. PT DENIES VOMITING. GAIT STEADY IN ER. PT DENIES NAUSEA AT THIS TIME BUT DOES CONTINUE TO C/O DIZZINESS "LIKE THE ROOM IS SPINNING." PT DENIES SOB OR CHEST PAIN. VSS. NIHSS SCORE: 0.
[2019-01-24 17:38] VITALS: BP 134/62
[2019-01-24 17:47] LABS: BASOPHILS % (AUTO) 1.2 % (0.0-2.0); EOSINOPHILS % (AUTO) 2.7 % (0.0-3.0); HEMOGLOBIN 13.7 G/DL (14.2-18.0); MEAN CORPUSCULAR VOLUME 86 FL (80-99); MONOCYTES % (AUTO) 9.9 % (1.0-10.0); NEUTROPHILS % (AUTO) 54.2 % (45.0-75.0); PLATELET COUNT 151 K/UL (150-450); WHITE BLOOD COUNT 5.4 K/UL (4.8-10.8)
[2019-01-24 17:51] LABS: ANION GAP 8 mmol/L (5-15); BLOOD UREA NITROGEN 14 mg/dL (7-18); CALCIUM 9.1 MG/DL (8.5-10.1); CARBON DIOXIDE 25 MMOL/L (21-32); CHLORIDE 110 MMOL/L (98-107); CREATININE 1.5 MG/DL (0.55-1.30); POTASSIUM 4.6 MMOL/L (3.5-5.1); SODIUM 143 MMOL/L (136-145)
[2019-01-24 17:54] LABS: ALANINE AMINOTRANSFERASE 14 U/L (12-78); ALBUMIN 3.2 G/DL (3.4-5.0); ALBUMIN/GLOBULIN RATIO 0.9 (1.0-2.7); ALKALINE PHOSPHATASE 97 U/L (46-116); ASPARTATE AMINO TRANSFERASE 17 U/L (15-37); BILIRUBIN,TOTAL 0.5 MG/DL (0.2-1.0)
[2019-01-24] MEDS ORDERED: Meclizine 25mg tab ORAL ONE (18:45)
[2019-01-24] MEDS ORDERED: Isovue-300 100ml vial INJ PRN (18:45)
--- NOTE | 2019-01-24 18:57 | NUR ---
Registration notified of admission.
--- NOTE | 2019-01-24 19:00 | Emergency Room Report ---
History of Present Illness General Chief Complaint: Vertigo Source: Patient Present Illness HPI This patient states that 4 days ago he developed a spinning sensation with associated nausea. He denies vomiting. He denies head trauma or headache. He states that he is also had abdominal pain on the right side of his abdomen. He denies dysuria or hematuria. He is also had pain in his right buttock radiating down his right leg to his right knee. He denies weakness. He denies tingling or numbness. He denies fever or chills. He denies neck pain. He denies blurry vision. He has no other complaints. Allergies: Coded Allergies: ACETAMINOPHEN (Unverified Allergy, Unknown, Shortness of Breath, 10/03/13) shortness of breath and hives CODEINE (Unverified Allergy, Unknown, Shortness of Breath, 10/03/13) sob and hives HYDROCODONE (Unverified Allergy, Unknown, Shortness of Breath, 10/03/13) shortness of breath and hives Patient History Past Medical History: see triage record, DM, HTN, CAD, GERD, CVA/TIA Social History: Denies: smoking, alcohol use, drug use Reviewed Nursing Documentation: PMH: Agreed; PSxH: Agreed Nursing Documentation-PMH Hx Cardiac Problems: Yes Hx Hypertension: Yes Hx Asthma: Yes - back pain cervical thoracic and lower back Hx Diabetes: Yes Hx Cancer: No Hx Gastrointestinal Problems: Yes Hx Neurological Problems: No Review of Systems All Other Systems: negative except mentioned in HPI Physical Exam Vital Signs Date Time Temp Pulse Resp B/P (MAP) Pulse Ox O2 Delivery O2 Flow Rate FiO2 01/24/19 16:53 98.2 68 16 126/76 (93) 95 Room Air Sp02 EP Interpretation: reviewed, normal General Appearance: no apparent distress, alert, GCS 15, non-toxic Head: normocephalic, atraumatic Eyes: bilateral eye normal inspection, bilateral eye PERRL ENT: hearing grossly normal, normal pharynx, no angioedema, normal voice Neck: full range of motion, supple/symm/no masses Respiratory: chest non-tender, lungs clear, normal breath sounds, no respiratory distress, no retraction, no accessory muscle use, speaking full sentences Cardiovascular #1: regular rate, rhythm, no edema Gastrointestinal: normal bowel sounds, non tender, soft, non-distended, no guarding, no rebound, tenderness - TTP L. abdomen and LUQ Rectal: deferred Musculoskeletal: back normal, normal range of motion, non-tender Neurologic: alert, oriented x3, responsive, motor strength/tone normal, sensory intact, speech normal Psychiatric: judgement/insight normal, memory normal, mood/affect normal, no suicidal/homicidal ideation Skin: no rash, rash Lymphatic: no adenopathy Medical Decision Making Diagnostic Impression: Primary Impression: Vertigo Additional Impression: Possible CVA ER Course This patient presents with 4 days of vertigo. I considered posterior circulation CVA given the patient's age. CT of the head was unremarkable. I had plan on obtaining an MRI of the brain, however, the patient was unable to tolerate being in the MRI machine and this test was unable to be obtained. Patient states that he cannot tolerate his vertigo. I will admit this patient for uncontrolled vertigo and for further evaluation for posterior circulation CVA. MRI brain is pending. Possibly this patient can undergo sedation during the daytime when anesthesia is available and undergo the MRI brain. The patient also had abdominal tenderness to palpation on exam and was complaining of abdominal pain, therefore, for concern and to rule out intra-abdominal pathology such as aortic aneurysm, appendicitis or other intra-abdominal etiology, the patient underwent CT of the abdomen pelvis which did not show any acute findings. The patient is admitted for further evaluation and treatment of his uncontrolled vertigo. Laboratory Tests Test 01/24/19 17:20 White Blood Count 5.4 K/UL (4.8-10.8) Red Blood Count 4.40 M/UL (4.70-6.10) L Hemoglobin 13.7 G/DL (14.2-18.0) L Hematocrit 38.0 % (42.0-52.0) L Mean Corpuscular Volume 86 FL (80-99) Mean Corpuscular Hemoglobin 31.2 PG (27.0-31.0) H Mean Corpuscular Hemoglobin Concent 36.1 G/DL (32.0-36.0) H Red Cell Distribution Width 12.0 % (11.6-14.8) Platelet Count 151 K/UL (150-450) Mean Platelet Volume 7.0 FL (6.5-10.1) Neutrophils (%) (Auto) 54.2 % (45.0-75.0) Lymphocytes (%) (Auto) 32.0 % (20.0-45.0) Monocytes (%) (Auto) 9.9 % (1.0-10.0) Eosinophils (%) (Auto) 2.7 % (0.0-3.0) Basophils (%) (Auto) 1.2 % (0.0-2.0) Prothrombin Time 10.7 SEC (9.30-11.50) Prothrombin Time INR 1.0 (0.9-1.1) PTT 26 SEC (23-33) Sodium Level 143 MMOL/L (136-145) Potassium Level 4.6 MMOL/L (3.5-5.1) Chloride Level 110 MMOL/L (98-107) H Carbon Dioxide Level 25 MMOL/L (21-32) Anion Gap 8 mmol/L (5-15) Blood Urea Nitrogen 14 mg/dL (7-18) Creatinine 1.5 MG/DL (0.55-1.30) H Estimate Glomerular Filtration Rate mL/min (>60) Glucose Level 114 MG/DL (74-106) H Calcium Level 9.1 MG/DL (8.5-10.1) Total Bilirubin 0.5 MG/DL (0.2-1.0) Aspartate Amino Transferase (AST) 17 U/L (15-37) Alanine Aminotransferase (ALT) 14 U/L (12-78) Alkaline Phosphatase 97 U/L (46-116) Total Protein 6.6 G/DL (6.4-8.2) Albumin 3.2 G/DL (3.4-5.0) L Globulin 3.4 g/dL Albumin/Globulin Ratio 0.9 (1.0-2.7) L EKG Diagnostic Results Rate: normal Rhythm: NSR ST Segments: no acute changes Other Impression RBBB Rhythm Strip Diag. Results EP Interpretation: yes Rate: 60's Rhythm: NSR, no PVC's, no ectopy Other Impression RBBB CT/MRI/US Diagnostic Results CT/MRI/US Diagnostic Results : Imaging Test Ordered: CT head, CT abd/pelvis Impression CT head: No acute findings. Specifically no intracranial bleed, mass effect or edema. See official report. CT abdomen and pelvis: No acute findings. See official report in electronic medical record. Last Vital Signs Date Time Temp Pulse Resp B/P (MAP) Pulse Ox O2 Delivery O2 Flow Rate FiO2 9/12/19 17:38 64 15 Room Air 01/24/19 17:38 98.4 134/62 98 Disposition: ADMITTED INPATIENT Condition: Stable Referrals: Bill Jackson MD (PCP) Diane Shelton DO Jan 24, 2019 19:00
--- NOTE | 2019-01-24 19:14 | NUR ---
ED Nurse Note: PT BACK FROM CT VIA WHEELCHAIR. MRI WAS ATTEMPTED BUT PT COULD NOT TOLERATE.
--- NOTE | 2019-01-24 19:23 | NUR ---
HAND-OFF: REPORT GIVEN TO ELVIS RUTHERFORD.
--- NOTE | 2019-01-24 19:55 | Diagnostic Imaging Report ---
Clinical Indication: Abdominal pain on the right side of the abdomen Technique: No oral contrast utilized, per emergency room physician request IV administration nonionic contrast. Venous phase spiral acquisition obtained through the abdomen and pelvis. Multiplanar reconstructions were generated. Total dose length product 822.29 mGycm. CTDIvol(s) 16.38 mGy. Dose reduction achieved using automated exposure control Comparison: none Findings: The appendix is not definitely identified, but no findings to suggest acute appendicitis are evident. There is colonic diverticulosis. No evidence of diverticulitis. There are bilateral indirect inguinal hernias which contain only fat. The distal esophagus, stomach, duodenum are unremarkable. Surgical clips are seen surrounding the gastroesophageal junction. No small bowel distention. No free or loculated intraperitoneal gas or fluid is evident. The gallbladder has been removed. There is dilatation of the extrahepatic bile ducts, with the common bile duct measuring 16 mm transverse dimension. There is also intrahepatic biliary ductal dilatation. There is questionably a small calculus at the ampulla seen on the axial images, but this is not confirmed on the orthogonal projections and is more likely just a prominent mucosal fold. The liver demonstrates some focal fat in the usual location adjacent to the falciform ligament, it demonstrates one or more subcentimeter low-attenuation lesions which are too small to characterize. The pancreas, spleen, adrenals are unremarkable. Numerous cortical and parapelvic cysts are seen involving both kidneys. There is focal ectasia of the distal left ureter near where it crosses the iliac vessels. No definite obstructive lesion is demonstrated, however. No renal or ureteral calculi demonstrated. There is very slight stranding of the fat within the pelvis. There is an inferior vena cava filter which is in good position. The prostate is prominent, measures 5 cm transverse diameter. The bladder is unremarkable. No pelvic mass or adenopathy. No retroperitoneal or mesenteric mass or adenopathy. There are calcified granulomatous nodes within the mesenteric root. The included lung bases demonstrate some atelectatic changes or scarring on the right. The bones demonstrate mild degenerative spondylosis changes. There is bilateral L5 spondylolysis and grade 1 L5 on S1 spondylolisthesis. Impression: Status post cholecystectomy. Dilated common bile duct and intrahepatic ducts. No definite downstream obstructive lesion, although small ampullary calculus is possible. Correlate with liver function tests, consider MRCP if clinically indicated Very slight stranding of the fat within the pelvis, significance uncertain, could indicate inflammation of the prostate or bladder Colonic diverticulosis. No evidence of diverticulitis. Bilateral L5 spondylolysis, grade 1 L5 on S1 spondylolisthesis Prominent prostate Focal ectasia of the distal left ureter, uncertain but doubtful significance Other findings as noted, including evidence of prior surgery in the region of the gastroesophageal junction, focal hepatic fatty change, subcentimeter low-attenuation liver lesions which are too small to characterize, bilateral renal cortical and parapelvic cysts, inferior vena cava filter, evidence of old granulomatous disease within the mesenteric root, right basilar pulmonary parenchymal atelectasis or scarring, degenerative spondylosis This essentially agrees with the preliminary interpretation provided overnight by [facility] teleradiology service, with some additional nonsignificant findings. The CT scanner at [facility] is accredited by the [employer] and the scans are performed using protocols designed to limit radiation exposure to as low as reasonably achievable to attain images of sufficient resolution adequate for diagnostic evaluation.
[2019-01-24] MEDS ORDERED: Lactulose 20gm/30ml UDC ORAL PRN (21:00)
--- NOTE | 2019-01-24 21:08 | NUR ---
ED Nurse Note: REPORT GIVEN TO DECLAN.
--- NOTE | 2019-01-24 21:15 | NUR ---
ED Nurse Note: PATIENT WAS ADMITED TO TELE DUE TO DIZZINESS, LIGHTHEADEDNESS, HEADACHE, AND NAUSEA X 4 DAYS. PATIENT WAS TRANSFERED TO THE UNIT VIA GURNEY BY [employer], WITH ALL BELONGINGS.
[2019-01-24] MEDS: Meclizine 25mg tab ORAL PRN (23:20)
[2019-01-24] MEDS: Tamsulosin 0.4mg cap ORAL SCH (23:20)
[2019-01-24] MEDS: NovoLOG Insulin Flexpen SUBQ SCH (23:21)
[2019-01-25] VITALS: BP 130/71
[2019-01-25 04:00] VITALS: BP 140/84
[2019-01-25] MEDS: NovoLOG Insulin Flexpen SUBQ SCH ×4 (06:23→21:26)
[2019-01-25] MEDS ORDERED: LORazepam Inj 2mg/ml 1ml IV SCH (07:00)
--- NOTE | 2019-01-25 07:10 | NUR ---
NURSE NOTES: Nurse report given by ELVIS Rhodes. Patient's awake in bed, no s/s of distress or SOB, complains leg pain 4/10. Bed at lowest position, call light within reach, break engaged, side rails x 2. IV is flushed well, patent and asymptomatic. Will continue to monitor.
--- NOTE | 2019-01-25 07:45 | History and Physical Report ---
DATE OF ADMISSION: 01/24/2019 CHIEF COMPLAINT: Severe vertigo. HISTORY OF PRESENT ILLNESS: The patient is a pleasant 83-year-old male well known to me. He has a history of COPD, hypertension, diabetes, and chronic kidney disease. He has a history of severe degenerative disc disease and cervical radiculopathy. He presented with complaints of severe intractable vertigo. According to the patient, he has had nearly continuous vertigo for the last 3 days. This has been associated with severe nausea and intermittent vomiting. He has been unable to ambulate. Symptoms have not improved and he contacted my office ____ to go to the ER. On evaluation there, he had a CAT scan of the head that was unremarkable. He was unable tolerate MRI though, but he remained symptomatic, was unable to ambulate, had intermittent nausea and is therefore admitted for further evaluation and care. PAST MEDICAL HISTORY: As above. PAST SURGICAL HISTORY: Includes back and neck surgery. CURRENT MEDICATIONS: Reconciled and reviewed. ALLERGIES: Codeine. FAMILY HISTORY: Noncontributory. SOCIAL HISTORY: There is no known history of alcohol or drugs. The patient does smoke. REVIEW OF SYSTEMS: GENERAL: No fevers or chills. HEENT: No headaches or visual changes. CARDIOPULMONARY: No chest pain or shortness of breath. GASTROINTESTINAL: Positive nausea and vomiting. GENITOURINARY: No urgency or frequency. MUSCULOSKELETAL: No joint pain. Positive neck pain and right leg pain. NEUROLOGIC: No evidence of seizures. Positive history of severe vertigo. PHYSICAL EXAMINATION: VITAL SIGNS: Temperature 97.7, pulse 70, respirations 18, and blood pressure 140/84. GENERAL: The patient is well developed, no apparent distress. HEART: Regular rate and rhythm. LUNGS: Lungs are clear. ABDOMEN: Soft, nontender, and nondistended. EXTREMITIES: Without clubbing, cyanosis, or edema. NEUROLOGIC: Cranial nerves II to XII were intact. Motor strength is 5/5. Sensation intact bilaterally. There is no nystagmus noted. Rapid alternating movements were slightly were normal. LABORATORY DATA: White count 5, hemoglobin 13, hematocrit 38, and platelets of 151,000. Sodium 143, potassium 4.6, chloride 110, bicarb 25, BUN 14, and creatinine 1.5. ASSESSMENT: This is a pleasant male with a history of diabetes, hypertension, chronic kidney disease, and history of ischemic cardiomyopathy with complaints of severe vertigo suspect due to benign positional vertigo, but cannot rule out a cerebellar stroke. PLAN: Continue antiplatelet therapy, IV hydration, antiemetics, and meclizine for dizziness. We will try to obtain an MRI with some sedation. We will continue outpatient diabetic and cardiac regimen. Cardiology consultation obtained. Bill Jackson M.D. DR: LEONARDA JOB#: [id number] CC:
[2019-01-25 08:00] VITALS: BP_SYST 108; BP_SYST 126; BP_DIAS 57; BP_DIAS 66
[2019-01-25] MEDS: metFORMIN 500mg tab ORAL SCH (08:30)
[2019-01-25] MEDS: Lyrica 50mg cap ORAL SCH ×3 (08:31→17:25)
[2019-01-25] MEDS: Morphine Sulfate 2mg/ml Inj(IV/IM USE ONLY) IVP PRN ×2 (08:32→22:35)
[2019-01-25] MEDS: Memantine 10mg tab ORAL SCH ×2 (08:32→17:26)
--- NOTE | 2019-01-25 10:30 | NUR ---
NURSE NOTES: Patient's off for MRI with anesthesia, off tele order is done. Patient's in stable condition when leaving the floor. cafeteria monitor is off.
--- NOTE | 2019-01-25 11:22 | NUR ---
NURSE NOTES: Patient's back from the procedure. Patient's in stable condition, no s/s of distress or SOB. Nurse handsoff given to ELVIS Park.
--- NOTE | 2019-01-25 11:41 | NUR ---
MRI BRAIN COMPLETED. PT ABLE TO LAY FLATTER TODAY. TJB 11:30
[2019-01-25 12:00] VITALS: BP 131/61
--- NOTE | 2019-01-25 12:56 | Diagnostic Imaging Report ---
Indication: Severe and intractable headache, nausea, vomiting Technique: sagittal T1 fast spin echo, axial T1 FLAIR, axial T2 FLAIR, axial T2 FS PROPELLER, axial T2* GRE, axial diffusion weighted images. ADC and exponential ADC maps generated Comparison: Reference made to brain CT dated 01/24/2019. No comparison MRI Findings: There is image degradation due to motion artifact No abnormal areas of restricted diffusion to suggest acute infarction. No gross acute hemorrhage or edema. No mass effect nor midline shift. There is age-related enlargement of the ventricles and extra axial CSF spaces. There is some periventricular deep white matter high T2 signal, minimal, consistent with chronic microvascular ischemic change. The vascular flow voids are preserved. There is evidence of bilateral maxillary and ethmoid sinus disease. The visualized orbits demonstrate evidence of prior bilateral cataract surgery Impression: Limited exam, due to motion artifact Chronic and age-related changes, as described Negative for acute intracranial bleed, mass effect, or infarct Sinus disease
[2019-01-25 16:00] VITALS: BP 134/81
--- NOTE | 2019-01-25 16:30 | NUR ---
CASE MANAGEMENT:REVIEW 83 YR OLD MALE FROM HOME TO ER CC; SENT TO ER BY DR LAGUNAS FOR POSSIBLE STROKE LIGHTHEADEDNESS. HEADACHE. NAUSEA SI:VERTIGO. POSSIBLE CVA 98.3 68 16 126/76 95% ON RA CR+1.5 IS:MECLIZINE PO CT HEAD CT ABD/PELVIS : TO TELEMETRY PLAN: NEURO CHECKS Q4HRS
[2019-01-25] MEDS: Meclizine 25mg tab ORAL PRN (18:40)
--- NOTE | 2019-01-25 19:15 | NUR ---
HAND-OFF: Report given to Ben LEAL. Pt remains stable.
--- NOTE | 2019-01-25 19:17 | NUR ---
NURSE NOTES: Receiving notes. Report received from ELVIS Park. Pt in bed resting, no pain or discomfort. Will continue plan of care.
[2019-01-25 20:00] VITALS: BP 151/79
[2019-01-25] MEDS: Tamsulosin 0.4mg cap ORAL SCH (21:23)
[2019-01-26] VITALS: BP 127/58
--- NOTE | 2019-01-26 01:00 | Consultation ---
DATE OF CONSULTATION: 01/24/2019 CARDIOLOGY CONSULTATION CONSULTING PHYSICIAN: Amado Vargas M.D. REASON FOR CONSULTATION: Vertigo. HISTORY OF PRESENT ILLNESS: This 83-year-old male has a long-standing history of generalized atherosclerosis, hypertension, and COPD. He has had vertigo that has worsened over the past few days. He had a CT scan that revealed nonspecific white matter disease, but was unable to tolerate an outpatient MRI. His symptoms worsened rendering him unable to ambulate with persistent nausea prompting hospitalization. The patient suffered a non-ST elevation myocardial infarction earlier this year. Less than a month ago, he had a myocardial perfusion scan with Lexiscan stress that revealed low likelihood for any flow-limiting coronary artery disease with normal ejection fraction. His most recent echocardiogram has revealed minimal elevation of PA systolic pressure with normal ejection fraction, concentric hypertrophy, and mild degenerative valve disease. PAST MEDICAL HISTORY: Further notable for degenerative disk disease, prior diskectomy, type 2 diabetes mellitus, hypertensive heart disease, atherosclerosis, COPD, and chronic kidney disease. ALLERGIES: Codeine. MEDICATIONS: Prior to admission, reviewed and reconciled. FAMILY HISTORY: Noncontributory. SOCIAL HISTORY: A 100-pack year smoker, and none at this time. REVIEW OF SYSTEMS: All systems negative other than noted above. PHYSICAL EXAMINATION: VITAL SIGNS: Afebrile. Blood pressure 140/80, pulse 70, and respirations 18. HEENT: Conjunctivae are pink. Oropharynx clear. NECK: Supple. LUNGS: Clear. CARDIAC: Regular. Normal S1, S2 with a fourth heart sound. ABDOMEN: Soft and nontender. EXTREMITIES: Good pulses. No edema. NEUROLOGIC: Reveals symmetric strength. No nystagmus. Unsteady gait. LABORATORY DATA: Labs reviewed. EKG pending. IMPRESSION: Probable BPPV, however, multiple risk factors suggest concern of a cerebellar ischemic event. PLAN: 1. Hydration. 2. Antiemetics, anti-platelet, and anti-lipid drugs. 3. MRI of the brain if able. 4. Review EKG. Amado Vargas M.D. DR: DONOVAN JOB#: [id number] CC:
--- NOTE | 2019-01-26 01:00 | Progress Note ---
DATE: 01/25/2019 CARDIOLOGY PROGRESS NOTE SUBJECTIVE: The patient continues to have dizziness and difficulty with gait. Vascular noninvasive studies are pending. EKG is pending. MRI of the brain was performed today ____ noted. No acute infarct, but sinus disease. OBJECTIVE: VITAL SIGNS: Blood pressure 134/81, pulse 82, and respirations 20. LUNGS: With diminished breath sounds. CARDIAC: Regular rhythm and rate. Normal S1 and S2 with a fourth heart sound. ABDOMEN: Soft. EXTREMITIES: No edema. NEUROLOGIC: Remains unchanged. IMPRESSION: 1. Generalized atherosclerosis. 2. Type 2 diabetes mellitus. 3. Hypertensive heart disease with controlled blood pressure. 4. Probable BPPV. 5. Chronic sinusitis. PLAN: 1. Consider decongestant. 2. Maintain meclizine as needed. 3. Anti-platelet therapy. 4. Anti-lipid therapy for LDL goal less than 70. 5. Followup noninvasive vascular studies. 6. Review EKG. Amado Vargas M.D. DR: JEANIE JOB#: [id number] CC:
[2019-01-26 04:00] VITALS: BP 137/72
[2019-01-26] MEDS: NovoLOG Insulin Flexpen SUBQ SCH ×4 (06:30→21:00)
--- NOTE | 2019-01-26 07:10 | NUR ---
NURSE NOTES: received patient report from ammon hoyt. patient is on bed awake, with family member at bedside. no arrythmias reported during the night. patient is not in distress. calm. will follow plan of care.
--- NOTE | 2019-01-26 07:28 | NUR ---
HAND-OFF: Report given to ELVIS Gould.
[2019-01-26 08:00] VITALS: BP 136/71
[2019-01-26] MEDS: Lyrica 50mg cap ORAL SCH (08:25)
[2019-01-26] MEDS: metFORMIN 500mg tab ORAL SCH (08:25)
[2019-01-26] MEDS: Memantine 10mg tab ORAL SCH ×2 (08:27→17:18)
[2019-01-26] MEDS: Heparin 5000 units/ml inj SUBQ SCH ×2 (08:28→21:08)
[2019-01-26] MEDS: Meclizine 25mg tab ORAL PRN ×2 (08:39→21:15)
[2019-01-26] MEDS ORDERED: LORazepam Inj 2mg/ml 1ml IV PRN (10:31)
--- NOTE | 2019-01-26 10:33 | General Progress Note ---
Assessment/Plan Problem List: (1) Diabetes mellitus ICD Codes: E11.9 - Diabetes mellitus SNOMED: 47762986 (2) Back pain ICD Codes: M54.9 - Back pain SNOMED: 124726212 (3) COPD (chronic obstructive pulmonary disease) with emphysema ICD Codes: J43.8 - COPD (chronic obstructive pulmonary disease) with emphysema SNOMED: 94945600 (4) severe neck pain (5) Vertigo ICD Codes: R42 - Dizziness and giddiness SNOMED: 814535831 Status: stable Assessment/Plan: ivf hold lyrica today pain rx mobilize pt/ot BP rx anxiolytics topical pain rx check ua Subjective ROS Limited/Unobtainable: No Constitutional: Reports: malaise, weakness HEENT: Reports: no symptoms Cardiovascular: Reports: lightheadedness Respiratory: Reports: no symptoms Gastrointestinal/Abdominal: Reports: no symptoms Genitourinary: Reports: no symptoms Neurologic/Psychiatric: Reports: weakness Endocrine: Reports: no symptoms Hematologic/Lymphatic: Reports: no symptoms Allergies: Coded Allergies: ACETAMINOPHEN (Unverified Allergy, Unknown, Shortness of Breath, 10/03/13) shortness of breath and hives CODEINE (Unverified Allergy, Unknown, Shortness of Breath, 10/03/13) sob and hives HYDROCODONE (Unverified Allergy, Unknown, Shortness of Breath, 10/03/13) shortness of breath and hives All Systems: reviewed and negative except above Subjective still with vertigo. now only associated with movements. MRI with no acute cva. c /o anxiety. pain in the back, neck, arms. +arm numbness and tingling on the right(chronic) Objective Last 24 Hour Vital Signs Date Time Temp Pulse Resp B/P (MAP) Pulse Ox O2 Delivery O2 Flow Rate FiO2 01/26/19 09:00 Room Air 01/26/19 08:28 83 130/57 01/26/19 08:00 98.2 83 21 136/71 (92) 98 01/26/19 07:44 84 01/26/19 04:00 65 01/26/19 04:00 99.0 65 20 137/72 (93) 95 01/26/19 00:00 97.2 81 18 127/58 (81) 97 01/26/19 00:00 81 01/25/19 21:00 Room Air 01/25/19 20:00 71 01/25/19 20:00 98.2 71 18 151/79 (103) 97 01/25/19 16:00 97.8 82 20 134/81 (98) 97 01/25/19 16:00 88 01/25/19 12:00 97.7 82 20 131/61 (84) 96 01/25/19 12:00 66 Intake and Output 01/25/19 01/26/19 18:59 06:59 Intake Total 900 ml Balance 900 ml Intake Oral 900 ml # Voids 3 3 Height (Feet): 5 Height (Inches): 6.00 Weight (Pounds): 173 General Appearance: WD/WN, alert EENT: PERRL/EOMI Neck: supple Cardiovascular: normal rate, regular rhythm Respiratory/Chest: chest wall non-tender, lungs clear, normal breath sounds, no respiratory distress Abdomen: normal bowel sounds, non tender, soft, no organomegaly, no mass Edema: no edema noted Arm (L), no edema noted Arm (R), no edema noted Leg (L), no edema noted Leg (R), no edema noted Pedal (L), no edema noted Pedal (R), no edema noted Generalized Neurologic: horse wrangler II-XII grossly normal, abnormal gait, alert, oriented x 3, responsive Bill Jackson MD Jan 26, 2019 10:33
[2019-01-26 12:00] VITALS: BP 127/56
--- NOTE | 2019-01-26 13:10 | Cardiology Report ---
APPROVED REPORT EKG Measurement Heart [id number] 190P42 [id number] Normal sinus rhythm with sinus arrhythmia Right bundle branch block Abnormal ECG
--- NOTE | 2019-01-26 13:18 | Cardiology Report ---
APPROVED REPORT EKG Measurement Heart [id number] SD 188P81 [id number] Normal sinus rhythm Right bundle branch block Possible Lateral infarct, age undetermined Abnormal ECG
[2019-01-26 13:19] LABS: APPEARANCE,URINE CLEAR; BILIRUBIN, URINE NEGATIVE (NEGATIVE); COLOR,URINE PALE YELLOW; GLUCOSE, URINE (UA) NEGATIVE (NEGATIVE); KETONES,URINE NEGATIVE (NEGATIVE); LEUKOCYTE ESTERASE ,URINE NEGATIVE (NEGATIVE); NITRITE,URINE NEGATIVE (NEGATIVE); PH,URINE 5 (4.5-8.0); PROTEIN,URINE NEGATIVE (NEGATIVE); UROBILINOGEN,URINE NORMAL MG/DL (0.0-1.0)
[2019-01-26 16:00] VITALS: BP 127/65
--- NOTE | 2019-01-26 19:24 | NUR ---
HAND-OFF: Report given to ammon hoyt.
--- NOTE | 2019-01-26 19:24 | NUR ---
Report received from Bryanna LEAL. pt awake and resting in bed. Left hand saline lock patent. no acute distress noted. will continue plan of care.
[2019-01-26 20:00] VITALS: BP 148/77
[2019-01-26] MEDS: Tamsulosin 0.4mg cap ORAL SCH (21:07)
--- NOTE | 2019-01-26 23:30 | Progress Note ---
DATE: 01/26/2019 CARDIOLOGY PROGRESS NOTE SUBJECTIVE: The patient is still with numbness and tingling on his right side and back pain. OBJECTIVE: VITAL SIGNS: Blood pressure 130/57, pulse 83, respiratory rate 21. EKG with sinus rhythm and right bundle-branch block. No acute changes. LUNGS: Diminished breath sounds. CARDIAC: Regular. ABDOMEN: Soft. EXTREMITIES: No edema. IMPRESSION: 1. Vertigo due to BPPV. No signs of acute CVA. 2. COPD. 3. Hypertensive heart disease. 4. Chronic right bundle-branch block. 5. Microvascular coronary artery disease. 6. Possible cervical radiculopathy. PLAN: 1. Physical therapy. 2. Respiratory hygiene. 3. Maintain current cardiovascular regimen. 4. Consider imaging of the cervical spine if not recently done. Amado Vargas M.D. DR: Arash JOB#: [id number] CC:
[2019-01-27] VITALS: BP 131/60
[2019-01-27 04:00] VITALS: BP 154/85
[2019-01-27] MEDS: Morphine Sulfate 2mg/ml Inj(IV/IM USE ONLY) IVP PRN (04:56)
[2019-01-27] MEDS: NovoLOG Insulin Flexpen SUBQ SCH ×4 (06:53→20:31)
--- NOTE | 2019-01-27 07:32 | NUR ---
HAND-OFF: Report given to ELVIS Estevez.
[2019-01-27 08:00] VITALS: BP 155/83
--- NOTE | 2019-01-27 08:00 | NUR ---
NURSE NOTES: Pt awake/alert in bed, breathing easily on room air, denies SOB and denies pain at this time. Vital signs stable with SR @ 72 on monitor. IV access left wrist with NS running at 50 ml/hr. Urinal available at bedside. Bed left in low position, side rails up x 2 and call light left near pt's hand.
[2019-01-27] MEDS: Memantine 10mg tab ORAL SCH (09:04)
[2019-01-27] MEDS: metFORMIN 500mg tab ORAL SCH (09:04)
[2019-01-27] MEDS: Heparin 5000 units/ml inj SUBQ SCH (09:07)
--- NOTE | 2019-01-27 09:49 | General Progress Note ---
Assessment/Plan Problem List: (1) Diabetes mellitus ICD Codes: E11.9 - Diabetes mellitus SNOMED: 84278114 (2) Back pain ICD Codes: M54.9 - Back pain SNOMED: 211438691 (3) COPD (chronic obstructive pulmonary disease) with emphysema ICD Codes: J43.8 - COPD (chronic obstructive pulmonary disease) with emphysema SNOMED: 26298329 (4) severe neck pain (5) Vertigo ICD Codes: R42 - Dizziness and giddiness SNOMED: 322219681 Status: stable Assessment/Plan: stable. improving pain rx mobilize pt/ot BP rx anxiolytics topical pain rx check ua Subjective Allergies: Coded Allergies: ACETAMINOPHEN (Unverified Allergy, Unknown, Shortness of Breath, 10/03/13) shortness of breath and hives CODEINE (Unverified Allergy, Unknown, Shortness of Breath, 10/03/13) sob and hives HYDROCODONE (Unverified Allergy, Unknown, Shortness of Breath, 10/03/13) shortness of breath and hives Subjective still with dizziness but less. still unsteady ambulating. no headaches. severe neck and back pain. difficult to control Objective Last 24 Hour Vital Signs Date Time Temp Pulse Resp B/P (MAP) Pulse Ox O2 Delivery O2 Flow Rate FiO2 01/27/19 09:04 69 154/85 01/27/19 04:00 69 01/27/19 04:00 97.8 69 18 154/85 (108) 96 01/27/19 00:00 98.0 74 18 131/60 (83) 97 01/27/19 00:00 74 01/26/19 21:00 Room Air 01/26/19 20:00 97.2 80 20 148/77 (100) 98 01/26/19 20:00 80 01/26/19 16:00 81 01/26/19 16:00 98.6 81 19 127/65 (85) 98 01/26/19 12:00 98.0 80 20 127/56 (79) 96 01/26/19 11:46 81 Intake and Output 01/26/19 01/27/19 19:00 07:00 Intake Total 1510 ml 945 ml Output Total 450 ml Balance 1060 ml 945 ml Intake Oral 1060 ml IV Total 450 ml 845 ml Other 100 ml Output Urine Total 450 ml # Voids 7 4 Laboratory Tests 01/26/19 11:38: Thyroid Stimulating Hormone (TSH) 0.790 01/26/19 13:00: Urine Color Pale yellow, Urine Appearance Clear, Urine pH 5, Urine Specific Dighton 1.010, Urine Protein Negative, Urine Glucose (UA) Negative, Urine Ketones Negative, Urine Blood Negative, Urine Nitrite Negative, Urine Bilirubin Negative, Urine Urobilinogen Normal, Urine Leukocyte Esterase Negative Height (Feet): 5 Height (Inches): 6.00 Weight (Pounds): 173 Objective General Appearance: WD/WN, alert EENT: PERRL/EOMI Neck: supple Cardiovascular: normal rate, regular rhythm Respiratory/Chest: chest wall non-tender, lungs clear, normal breath sounds, no respiratory distress Abdomen: normal bowel sounds, non tender, soft, no organomegaly, no mass Edema: no edema noted Arm (L), no edema noted Arm (R), no edema noted Leg (L), no edema noted Leg (R), no edema noted Pedal (L), no edema noted Pedal (R), no edema noted Generalized Neurologic: registered safety engineer II-XII grossly normal, abnormal gait, alert, oriented x 3, responsive Bill Jackson MD Jan 27, 2019 09:49
[2019-01-27 12:00] VITALS: BP 159/78
[2019-01-27] MEDS ORDERED: Meclizine 25mg tab ORAL PRN (15:30)
--- NOTE | 2019-01-27 16:37 | NUR ---
PT note PT randolph completed, treatment initiated. Patient has musclew eakness and decreased postural stability with c/o dizziness upon sitting and gait activities, making him at a high risk for falls. Patient needs PT to increase his muscle strneght and balance to imprvioe his safety in mobility and gait. Addendum: 01/27/19 at 1638 by TIERRA MARAVILLA PT Amended: Links added.
[2019-01-27 17:00] VITALS: BP 159/81
[2019-01-27] MEDS ORDERED: Morphine Sulfate 2mg/ml Inj(IV/IM USE ONLY) IVP PRN (17:00)
[2019-01-27] MEDS ORDERED: Memantine 10mg tab ORAL SCH (18:00)
[2019-01-27] MEDS ORDERED: LORazepam Inj 2mg/ml 1ml IV PRN (18:45)
[2019-01-27] MEDS ORDERED: Isovue-300 100ml vial INJ PRN (18:45)
[2019-01-27 19:41] VITALS: BP 146/74
--- NOTE | 2019-01-27 19:45 | NUR ---
NURSE NOTES: Received patient awake,alert,verbal,sitting in bed with essentially normal vital signs.
[2019-01-27] MEDS ORDERED: Lactulose 20gm/30ml UDC ORAL PRN (21:00)
[2019-01-27] MEDS ORDERED: Tamsulosin 0.4mg cap ORAL SCH (21:00)
[2019-01-27] MEDS ORDERED: Heparin 5000 units/ml inj SUBQ SCH (21:00)
--- NOTE | 2019-01-28 01:00 | Progress Note ---
DATE: 01/27/2019 CARDIOLOGY PROGRESS NOTE SUBJECTIVE: Dizziness slightly better. Unsteady with ambulation. Still has neck and back pain. OBJECTIVE: VITAL SIGNS: Blood pressure 131/60 to 154/85, heart rate 70, and respiratory rate 18. LUNGS: Diminished breath sounds. CARDIAC: Regular rhythm and rate. Normal S1, S2 with no murmur. ABDOMEN: Soft. EXTREMITIES: No edema. NEUROLOGIC: No nystagmus. Gait unsteady. IMPRESSION: 1. BPPV. 2. Cervical disc disease with radiculopathy. 3. Chronic obstructive pulmonary disease. 4. Hypertensive heart disease. 5. Microvascular angina. PLAN: 1. Physical and occupational therapy. 2. Fall risk. 3. Anti-platelet and anti-lipid drugs. 4. Respiratory hygiene. 5. Avoid tight blood pressure control and orthostasis. 6. Imaging of the cervical and thoracic spine. Amado Vargas M.D. DR: DONOVAN JOB#: [id number] CC:
[2019-01-28 04:00] VITALS: BP 133/64
[2019-01-28] MEDS: NovoLOG Insulin Flexpen SUBQ SCH (05:52)
--- NOTE | 2019-01-28 07:15 | NUR ---
NURSE NOTES: PATIENT RECEIVED FROM NADIRA. PATIENT ALERT AND ORIENTED AND ABLE TO MAKE NEEDS KNOWN. IV SITE IS CLEAN DRY AND INTACT. BED IN LOW AND LOCKED POSITION. PATIENT HAS NO OBVIOUS SIGNS OF DISTRESS AND NO COMPLAINTS OF PAIN. WILL CONTINUE TO MONITOR PATIENT.
--- NOTE | 2019-01-28 07:31 | NUR ---
HAND-OFF: Report given to ELVIS Elise.
[2019-01-28 08:00] VITALS: BP 152/91
[2019-01-28] MEDS ORDERED: metFORMIN 500mg tab ORAL SCH (09:00)
--- NOTE | 2019-01-28 09:45 | NUR ---
NURSE NOTES: PATIENT SAID HE DID NOT WANT TO HAVE THE MRI OF THE SPINE HE WANTED TO LEAVE RIGHT AWAY, PATIENT STATED THAT HIS , WHO WAS ALSO A PATIENT IN THE SAME ROOM, HAS AN APPOINTMENT ACROSS THE STRE[address] AT 1000. I CONTACTED THE PRIMARY DOCTOR TO LET HIM KNOW HE WAS REFUSING THE MRI. ALSO THE CHARGE NURSE ELOISA CONTACTED THE DOCTOR WHO ORDERED THE MRI TO LET THEM KNOW THAT THE PATIENT REFUSED THE MRI. PATIENT SIGNED THE DISCHARGE PAPERWORK FOR BOTH HIM AND HIS . PATIENT LEFT ALERT AND ORIENTED X4, IV REMOVED, PATIENT REFUSED REMOVAL OF ID BRACELET.
--- NOTE | 2019-01-28 23:19 | Diagnostic Imaging Report ---
APPROVED REPORT CPT Code: 52801 Vascular Symptoms Comments: SYNCOPE. Doppler Spectral Velocity Analysis RightLeft RIGHT SIDE: CCA - Imaging reveals no significant plaque within the extracranial carotid arteries. The Doppler spectral flow analysis is within normal limits throughout the extracranial carotid arteries. VERTEBRAL - The vertebral artery is within normal limits. LEFT SIDE: CCA/ECA - Imaging reveals no significant plaque in the common carotid and external carotid arteries. ICA PROX - Imaging reveals irregular plaque in the internal carotid artery. The Doppler signal indicates the degree of stenosis is minimal (30%-40%) in the proximal internal carotid artery. VERTEBRAL- The vertebral artery is within normal limits.
--- NOTE | 2019-01-29 | Progress Note ---
DATE: 01/28/2019 CARDIOLOGY PROGRESS NOTE SUBJECTIVE: The patient is able to ambulate better now. He uses an assistive device. He still has dizziness on head repositioning. Blood pressure is well controlled. OBJECTIVE: LUNGS: Clear. CARDIAC: Regular. Normal S1 and S2 with a fourth heart sound. ABDOMEN: Soft. EXTREMITIES: There is no edema. IMPRESSION: 1. BPPV. 2. Cervical disk disease with radiculopathy. 3. COPD. 4. Hypertensive heart disease. 5. 6. Carotid atherosclerosis, that is non flow-limiting. PLAN: 1. Continue p.r.n. Antivert. 2. Maintain anti-platelet and anti-lipid drugs. 3. Avoid tighter blood pressure control that may precipitate orthostasis. 4. Respiratory hygiene. 5. Outpatient follow up. Amado Vargas M.D. DR: Syd JOB#: [id number] CC:
--- NOTE | 2019-01-29 01:00 | Discharge Summary ---
DATE OF ADMISSION: 01/24/2019 DATE OF DISCHARGE: 01/28/2019 ADMISSION DIAGNOSES: 1. Severe vertigo. 2. Rule out stroke. 3. Hypertension. 4. COPD. 5. Acute renal failure. 6. Dehydration. DISCHARGE DIAGNOSES: 1. Severe vertigo. 2. Rule out stroke. 3. Hypertension. 4. COPD. 5. Acute renal failure. 6. Dehydration. HOSPITAL COURSE: The patient was admitted with complaints of vertigo. He was unable to ambulate. He was admitted. He had a CAT scan and later MRI that showed no evidence of any acute stroke. He continued to have severe vertiginous symptoms. He was gently hydrated. He received PT and OT. On discharge, vertigo was improving. He will be discharged home with close outpatient followup. DISCHARGE MEDICATIONS: Please see discharge medication list for discharge medications. DIET: Cardiac diet. ACTIVITIES: Ad-devang. FOLLOWUP: The patient will follow up in one to two weeks in the office. Bill Jackson M.D. DR: JUNIOR JOB#: [id number] CC:
[2019-02-01] MEDS ORDERED: Vitamin D 50,000 units cap ORAL SCH ×2 (09:00)
== END 2019-01-28 09:50 | disposition home or self-care (01) | DRG 149 ==
LOC: EMR 17:33 → 2E 19:34 → EDBEDREQ 20:29 → 4E 01-27 15:27
DX: H81.10 Benign paroxysmal vertigo, unspecified ear (principal); Z88.6 Allergy status to analgesic agent; J44.9 Chronic obstructive pulmonary disease, unspecified; E11.9 Type 2 diabetes mellitus without complications; I12.9 Hypertensive chronic kidney disease with stage 1 through stage 4 chronic kidney disease, or unspecified chronic kidney disease; E11.22 Type 2 diabetes mellitus with diabetic chronic kidney disease; N18.9 Chronic kidney disease, unspecified; I25.5 Ischemic cardiomyopathy; M50.10 Cervical disc disorder with radiculopathy, unspecified cervical region; Z87.891 Personal history of nicotine dependence; I70.91 Generalized atherosclerosis; J32.9 Chronic sinusitis, unspecified; I25.10 Atherosclerotic heart disease of native coronary artery without angina pectoris
CPT/HCPCS: 36415; 70450; 70551; 74177; 80053; 81003; 82962; 84443; 85025; 85610; 85730; 87086; 93005; 93880; 99285; J1815

== ENCOUNTER 2019-11-09 13:25 | Inpatient (IN) | payer MEDICARE ==
[~2019-11-09] VITALS: Ht 167.6 cm; Wt 79.8 kg
--- NOTE | 2019-11-09 14:00 | NUR ---
NURSE NOTES: Received patient into room 306 bed 2,patient is alert and oriented,respirations unlabored.BP 135/84 hearate 73,rrespirations 18,o2 saturation 98,temperature 97.3.will notify Doctor Manuel of patient admission to 306 bed 2
[2019-11-09 16:00] VITALS: BP 137/73
--- NOTE | 2019-11-09 17:30 | NUR ---
NURSE NOTES: Patient state he is allergic to codeine,but he has had Morphine in the past and able to tolerate morphine ,pharmacy is aware.
[2019-11-09] MEDS ORDERED: Vitamin D 50,000 units cap ORAL SCH (18:00)
[2019-11-09] MEDS ORDERED: Lactulose 20gm/30ml UDC ORAL PRN (18:00)
[2019-11-09 18:25] LABS: EOSINOPHILS % (AUTO) 3.3 % (0.0-3.0); HEMATOCRIT 40.3 % (42.0-52.0); HEMOGLOBIN 13.2 G/DL (14.2-18.0); LYMPHOCYTES % (AUTO) 30.6 % (20.0-45.0); MEAN CORPUSCULAR VOLUME 93 FL (80-99); NEUTROPHILS % (AUTO) 56.1 % (45.0-75.0); PLATELET COUNT 150 K/UL (150-450); RED BLOOD COUNT 4.34 M/UL (4.70-6.10); RED CELL DISTRIBUTION WIDTH 14.4 % (11.6-14.8); WHITE BLOOD COUNT 4.3 K/UL (4.8-10.8)
[2019-11-09 18:46] LABS: ALANINE AMINOTRANSFERASE 16 U/L (12-78); ALBUMIN 3.3 G/DL (3.4-5.0); ALBUMIN/GLOBULIN RATIO 0.9 (1.0-2.7); ALKALINE PHOSPHATASE 83 U/L (46-116); ANION GAP 10 mmol/L (5-15); ASPARTATE AMINO TRANSFERASE 14 U/L (15-37); BILIRUBIN,TOTAL 0.5 MG/DL (0.2-1.0); BLOOD UREA NITROGEN 21 mg/dL (7-18); CALCIUM 8.7 MG/DL (8.5-10.1); CARBON DIOXIDE 24 MMOL/L (21-32); CHLORIDE 107 MMOL/L (98-107); CREATININE 1.8 MG/DL (0.55-1.30); POTASSIUM 4.1 MMOL/L (3.5-5.1); SODIUM 141 MMOL/L (136-145)
[2019-11-09] MEDS: Memantine 10mg tab ORAL SCH (18:59)
--- NOTE | 2019-11-09 19:00 | NUR ---
NURSE NOTES: Patient home medication metformin,patient states he does not take due to his kidneys.Will notify DR Jackson. Addendum: 11/09/19 at 2013 by KATYA JARAMILLO RN RN patient on amlodipine and Diovan,patient state he will take Valsartan and not the Amlodipine he state he does not need to be on two blood pressure medication.
[2019-11-09] MEDS: Lyrica 50mg cap ORAL SCH (19:02)
--- NOTE | 2019-11-09 19:12 | NUR ---
NURSE NOTES: Notified Dr Jackson for troponin level 0.065,no order received regarding troponin level. Patient has n o complaint of chest pain,02 sats 96% on room air.
--- NOTE | 2019-11-09 19:25 | NUR ---
NURSE NOTES: Received report from Muna LEAL. Pt. is in bed, awake, alert and oriented. Denies any pain at this time. Will continue to monitor.
--- NOTE | 2019-11-09 19:41 | NUR ---
HAND-OFF: Report given to NOEMI RN,patient ambulate steady..
[2019-11-09 20:00] VITALS: BP 154/83
[2019-11-09] MEDS: Tamsulosin 0.4mg cap ORAL SCH (20:58)
[2019-11-09] MEDS: Morphine Sulfate 2mg/ml Inj(IV/IM USE ONLY) IVP PRN (20:59)
[2019-11-10] VITALS: BP 122/76
--- NOTE | 2019-11-10 00:34 | History and Physical Report ---
DATE OF ADMISSION: 11/09/2019 CHIEF COMPLAINT: Dizziness, shoulder and arm pain. HISTORY OF PRESENT ILLNESS: The patient is an 84-year-old male. He has multiple medical problems. He has a history of hypertensive heart disease, COPD, chronic kidney disease, and diabetes. He presented with complaints of severe neck pain, left shoulder pain, elbow pain, and wrist pain. According to the patient, he was well. A week ago, he was in the office. He was noted to have worsening pain in the neck, left shoulder, wrist, and arm. It was felt to be likely musculoskeletal. An MRI was planned to be arranged as an outpatient. The patient had worsening pain that he describes as severe. Oral pain medications could not control his pain. He is, therefore, admitted for IV pain medications and came here for further diagnostic workup. PAST MEDICAL HISTORY: As above. PAST SURGICAL HISTORY: Includes a prior neck and back surgery. CURRENT MEDICATIONS: Reconciled and reviewed. ALLERGIES: Include Tylenol, codeine, and hydrocodone. FAMILY HISTORY: Noncontributory. SOCIAL HISTORY: The patient is a smoker. No alcohol. No drugs. He is legally blind. REVIEW OF SYSTEMS: GENERAL: No fevers or chills. HEENT: No headaches. Positive neck pain. CARDIOPULMONARY: No chest pain or shortness of breath. No cough. GASTROINTESTINAL: No nausea or vomiting. GENITOURINARY: No urgency or frequency. MUSCULOSKELETAL: Positive left shoulder, elbow, and wrist pain. NEUROLOGIC: No history of seizures. PHYSICAL EXAMINATION: VITAL SIGNS: Temperature 97, pulse 73, respirations 18, and blood pressure 137/73. GENERAL: The patient is well developed, in no apparent distress. HEENT: Head is normocephalic and atraumatic. NECK: Supple. There is diminished range of motion noted. HEART: Regular rate and rhythm without murmurs, rubs, or gallops. LUNGS: Clear to auscultation bilaterally. ABDOMEN: Soft, nontender, and nondistended. EXTREMITIES: Without clubbing, cyanosis, or edema. Left shoulder, the patient is unable to lift his arms above his head. There is minimal range of motion. He has pain with both active and passive range of motion. LABORATORY DATA: Sodium 141, potassium 4.1, BUN 21, creatinine 7.8. 02:25 4.3. Troponin is 0.065. ASSESSMENT: This is a pleasant male with a history of hypertension, diabetes, chronic kidney disease, blindness, COPD, chronic back pain, admitted with left shoulder pain. Of note, he does have an elevated troponin, significance is of which is unclear. PLAN: We will follow up EKG, repeat troponin, cardiology consultation. X-rays of the shoulder and elbow have been obtained. Check uric acid level, sedimentation rate, and CRP. PT and OT evaluations will be obtained. Plan of care will be determined after review of pending tests and discussion with consulting physicians. Bill Jackson M.D. DR: ANIKA JOB#: [id number] CC:
[2019-11-10 04:00] VITALS: BP 132/70
--- NOTE | 2019-11-10 07:14 | NUR ---
NURSE NOTES: Report given to ELVIS Toro.
--- NOTE | 2019-11-10 07:46 | NUR ---
NURSE NOTES: Patient alert and oriented,respirations unlabored.IV fluids infusing as ordered.No complaint of pain at this time.Call light within reach.
[2019-11-10 08:00] VITALS: BP 131/88
[2019-11-10 08:42] LABS: APPEARANCE,URINE CLEAR; BILIRUBIN, URINE NEGATIVE (NEGATIVE); COLOR,URINE PALE YELLOW; GLUCOSE, URINE (UA) NEGATIVE (NEGATIVE); KETONES,URINE NEGATIVE (NEGATIVE); LEUKOCYTE ESTERASE ,URINE NEGATIVE (NEGATIVE); NITRITE,URINE NEGATIVE (NEGATIVE); PH,URINE 5 (4.5-8.0); PROTEIN,URINE NEGATIVE (NEGATIVE); UROBILINOGEN,URINE NORMAL MG/DL (0.0-1.0)
[2019-11-10] MEDS: Irbesartan 150mg tablet ORAL SCH (08:55)
[2019-11-10] MEDS: Memantine 10mg tab ORAL SCH ×2 (08:56→17:38)
[2019-11-10] MEDS: Lyrica 50mg cap ORAL SCH ×2 (08:56→17:38)
--- NOTE | 2019-11-10 08:56 | Diagnostic Imaging Report ---
EXAM: XR Left Wrist Complete, 3 or More Views CLINICAL HISTORY: PAIN TECHNIQUE: Frontal, lateral and oblique views of the left wrist. COMPARISON: No relevant prior studies available. FINDINGS: Bones/joints: Diffuse, moderate to severe osteoporosis. No evidence of acute fracture. No dislocation. Radiocarpal and intercarpal joint spaces are preserved. Soft tissues: Unremarkable. No radiopaque foreign body. IMPRESSION: No evidence of acute osseous abnormality. Moderate to severe osteoporosis.
--- NOTE | 2019-11-10 08:58 | Diagnostic Imaging Report ---
EXAM: XR Left Elbow Complete, 3 or More Views CLINICAL HISTORY: PAIN TECHNIQUE: Frontal, lateral and oblique views of the left elbow. COMPARISON: No relevant prior studies available. FINDINGS: Bones/joints: No evidence of acute fracture. No dislocation. There is a 7 mm olecranon spur. No joint effusion. Soft tissues: No significant soft tissue swelling. IMPRESSION: No evidence of acute osseous abnormality.
--- NOTE | 2019-11-10 11:10 | Diagnostic Imaging Report ---
EXAM: XR Chest, 1 View CLINICAL HISTORY: SCREEN TECHNIQUE: Frontal view of the chest. COMPARISON: Chest radiograph on 10/18/2018 FINDINGS: Hardware: None. Lungs/pleura: Interstitial opacities at the lung bases. Probable emphysematous changes. No pleural effusion or pneumothorax. Heart/mediastinum: Normal. No cardiomegaly. Soft tissues: Unremarkable. Bones: No acute fracture. Upper abdomen: Normal. IMPRESSION: Interstitial opacities at the lung bases may represent chronic lung changes versus infectious/inflammatory process versus atelectasis.
[2019-11-10 12:00] VITALS: BP 135/70
--- NOTE | 2019-11-10 13:23 | NUR ---
NURSE NOTES: Patient requested to BS checking. Spoke to regarding BS checking and new order received. Order read back and carried out.
--- NOTE | 2019-11-10 13:56 | NUR ---
CASE MANAGEMENT:REVIEW 84 YR OLD MALE DIRECTLY ADMITTED FROM HOME CC: DIZZINESS. SHOULDER AND ARM PAIN. SEVERE NECK PAIN SI:DEHYDRATION.ELEVATED TROPONIN 97.7 73 18 137/73 98% ON RA BUN+21 CR+1.8 GLUCOSE+149 TROPONIN(+) 0.065 IS: IVF@50/HR SS INSULIN AC+HS AVAPRO PO QD FLOMAX PO QHS PROTONIX PO BID NAMENDA PO BID LYRICA PO BID IV MORPHINE 50/HR : TO MED/SURG UNIT 3 [facility] DCP: FROM HOME Addendum: 11/10/19 at 1704 by AVTAR PACK LVN LVN INTERQUAL CRITERIA MET
[2019-11-10 16:00] VITALS: BP 152/74
[2019-11-10] MEDS: NovoLOG Insulin Flexpen SUBQ SCH ×2 (16:30→20:27)
--- NOTE | 2019-11-10 19:38 | NUR ---
NURSE NOTES: Received report from Muna LEAL. Rounding is done. Patient is a/o x4. c/o pain 5/10 and will give medication as ordered. No distress noted at this time. IV site is intact and iv fluid is running. Bed is on alarm, locked, and lowest position. Call light within reach. Will continue to monitor.
--- NOTE | 2019-11-10 19:47 | NUR ---
HAND-OFF: Report given to Nicole LEAL.
[2019-11-10 20:00] VITALS: BP 140/88
[2019-11-10] MEDS: Tamsulosin 0.4mg cap ORAL SCH (20:27)
[2019-11-10] MEDS: Morphine Sulfate 2mg/ml Inj(IV/IM USE ONLY) IVP PRN (21:42)
[2019-11-11] VITALS: BP 117/59
--- NOTE | 2019-11-11 02:15 | Progress Note ---
DATE: 11/10/2019 CARDIOLOGY PROGRESS NOTE SUBJECTIVE: Pain in the left shoulder and arm persist with movement. No chest pain. Repeat laboratories including troponin pending. OBJECTIVE: VITAL SIGNS: Blood pressure 152/74, pulse 76, respirations 20. LUNGS: Diminished breath sounds. CARDIAC: Regular. Normal S1 and S2 with a fourth heart sound. ABDOMEN: Soft. EXTREMITIES: No edema. No focal joint effusions or tenderness in the left upper extremity. LABORATORY DATA: X-ray of the wrist and elbow revealed no fracture, only arthritis. Shoulder imaging pending. IMPRESSION: 1. Ischemic heart disease. 2. Chronic stable angina. No signs of acute coronary insufficiency despite troponin elevation which is likely chronic. 3. Rule out rotator cuff abnormality on the left. PLAN: 1. Respiratory therapy. 2. Antianginal regimen. 3. Imaging of the left shoulder pending. 4. Pain control physical therapy assessment. Amado Vargas M.D. DR: JEANIE JOB#: [id number] CC:
--- NOTE | 2019-11-11 03:15 | Consultation ---
DATE OF CONSULTATION: 11/09/2019 CARDIOLOGY CONSULTATION CONSULTING PHYSICIAN: Amado Vargas M.D. REQUESTING PHYSICIAN: Bill Jackson M.D. REASON FOR CONSULTATION: Left shoulder pain in the setting of an elevated troponin level. HISTORY OF PRESENT ILLNESS: This 84-year-old male with multiple medical problems, has had several days of worsening pain in his neck, left shoulder, wrist, and arm. He has not had any apparent falls. He has not been able to control pain with oral pain medications. Hospitalization was initiated as a result. He did have an elevated troponin level and I have been asked to address the possibility of coronary insufficiency. The patient had a myocardial perfusion scan in the last 6 months that revealed less than 10% likelihood of flow-limiting coronary disease. He does have microvascular coronary disease and he has had elevated troponin level, low ranges presently for some time. He has not noted any change in his functional status with the exception of his current arm discomfort. PAST MEDICAL HISTORY: 1. Chronic obstructive pulmonary disease. 2. Osteoarthritis. 3. Osteoporosis. 4. Hypertensive heart disease. 5. Microvascular angina. 6. Peripheral artery disease. 7. Chronic kidney disease. 8. Type 2 diabetes mellitus. ALLERGIES: Includes acetaminophen, codeine, and hydrocodone. FAMILY HISTORY: Noncontributory. SOCIAL HISTORY: Greater than 38-[id number] smoker. No alcohol or substance abuse. REVIEW OF SYSTEMS: As noted above. A 10-point review of systems performed. All systems negative other than noted above. PHYSICAL EXAM: VITAL SIGNS: Afebrile. Blood pressure 137/73, heart 73, and respirations 18. LUNGS: Clear with diminished breath sounds. CARDIAC: Regular. Normal S1, S2 with a fourth heart sound. ABDOMEN: Soft and nontender. EXTREMITIES: No edema. Left upper extremity reveals decreased range of motion at the left shoulder joint with elicited pain. LABORATORY DATA: Troponin 0.065. EKG pending. IMPRESSION: 1. Chronic ischemic heart disease. 2. Hypertensive heart disease. 3. Possible rotator cuff abnormality. 4. Chronic obstructive pulmonary disease. PLAN: 1. Follow up troponin level. 2. Electrocardiogram to be reviewed. 3. Maintain anti-platelet therapy. 4. Await imaging studies of the shoulder. 5. Further recommendations to follow. Amado Vargas M.D. DR: JAI JOB#: [id number] CC:
[2019-11-11] MEDS: Morphine Sulfate 2mg/ml Inj(IV/IM USE ONLY) IVP PRN ×2 (03:45→21:48)
[2019-11-11 04:00] VITALS: BP 134/67
[2019-11-11] MEDS: NovoLOG Insulin Flexpen SUBQ SCH ×4 (05:39→20:27)
--- NOTE | 2019-11-11 07:29 | NUR ---
HAND-OFF: Report given to Nati LEAL. Patient in stable condition.
[2019-11-11 08:00] VITALS: BP 151/74
--- NOTE | 2019-11-11 08:00 | NUR ---
NURSE NOTES: Received report from Nicole LEAL, pt a/a/o x4 laying in bed with no signs of distress or other issues at this time. IV on the right hand gauge #24 running NS@50ml/hr. call light within reach, bed in lowest position, side rales up x2. I will f/u as needed. plan: MRI of the left shoulder, EKG, and troponin levels.
--- NOTE | 2019-11-11 08:15 | NUR ---
NURSE NOTES: Received a call from Lab s/w Suly, she stated pt's Troponin this mornin.067. - RN called Dr. Jackson to inform of the above results.
[2019-11-11] MEDS: Irbesartan 150mg tablet ORAL SCH (08:43)
[2019-11-11] MEDS: Memantine 10mg tab ORAL SCH ×2 (08:43→17:30)
[2019-11-11] MEDS: Lyrica 50mg cap ORAL SCH ×2 (08:44→17:31)
[2019-11-11] MEDS ORDERED: LORazepam 1mg tab ORAL SCH (09:00)
[2019-11-11] MEDS ORDERED: LORazepam Inj 2mg/ml 1ml IV SCH (09:30)
--- NOTE | 2019-11-11 09:32 | NUR ---
CASE MANAGEMENT:REVIEW 11/11/19 SI:DEHYDRATION.ELEVATED TROPONIN 97.9 82 19 151/74 95% ON RA TROP 0.067 C-REC PROT 1.6 BG 140ESR 24 IS: IVF@50/HR SS INSULIN AC+HS AVAPRO PO QD FLOMAX PO QHS PROTONIX PO BID NAMENDA PO BID LYRICA PO BID IV MORPHINE Q4HR/PRN : TO MED/SURG UNIT 3 [facility] DCP: FROM HOME PLAN: MRI SHOULDER PT EVAL
--- NOTE | 2019-11-11 10:20 | NUR ---
NURSE NOTES: Pt left the floor with for MRI, no signs of distress or other issues noted at this time. I will f/u as needed
--- NOTE | 2019-11-11 11:02 | NUR ---
P.T Note: PT evaluation completed and tx initiated. Please refer to P.T evaluation for current functional status. Pt is alert, O x 4, pleasant and cooperative. Pt c/o generalized weakness and pain particularly bilateral shoulders, B wrists and lower back aggravated with movement and long distance ambulation. Pt currently is independent in bed mobilities and required SBA x for transfer activities and gait/ambulation activities. Skilled P.TY service is warranted during stay to improve strength and general body conditioning to increase mobility independence and safety. Recommend home P.T upon DC.
[2019-11-11 12:00] VITALS: BP 164/91
--- NOTE | 2019-11-11 14:46 | Diagnostic Imaging Report ---
EXAM: MRI MRI LT Shoulder no Contrast TECHNIQUE: MR images of the shoulder includes sagittal T2, coronal proton density and fat-suppressed T2 sequences as well as axial proton density and T1 sequences. CLINICAL HISTORY: Shoulder pain. COMPARISON: None FINDINGS: There is normal marrow signal. There is no fracture, bony lesions or erosions. There is degenerative hyperostosis of the AC joint. There is also acromial spurring contributing to narrowing of the impingement space. Flattening of the greater tuberosity noted likely sequela of chronic microimpingement. Subchondral cystic change identified in the humeral head along the posterior margin. Supraspinatous tendon is grossly intact. Infraspinatus tendon also unremarkable to the extent visualized. There is a tear noted in the distal subscapularis tendon best seen on the axial views. The vertical portion of the biceps tendon long head is intact and sits within the bicipital groove but the horizontal portion is torn and poorly defined. Anterior labrum is grossly intact. There is a possible small tear through the posterior labrum seen on the axial views. The superior labrum is very poorly defined on the limited coronal views. Focal mucoid degeneration and tear cannot be excluded. IMPRESSION: IMPINGEMENT SYNDROME WITH DEGENERATIVE HYPEROSTOSIS OF THE AC JOINT AND ACROMIAL SPURRING CONTRIBUTING TO NARROWING OF THE IMPINGEMENT SPACE. FLATTENING OF THE GREATER TUBEROSITY REFLECTS SEQUELA OF CHRONIC MICROIMPINGEMENT. NO DEFINITE ACUTE TEAR OF THE SUPRASPINATUS OR INFRASPINATUS TENDONS TO THE EXTENT VISUALIZED. TEAR OF THE DISTAL SUBSCAPULARIS TENDON. TEAR IN THE HORIZONTAL PORTION OF THE BICEPS TENDON LONG HEAD. POSSIBLE SMALL TEAR OF THE POSTERIOR LABRUM. SUPERIOR LABRUM IS VERY POORLY DEFINED ON THE LIMITED CORONAL SEQUENCES. FOCAL MUCOID DEGENERATION AND TEAR CANNOT BE EXCLUDED.
[2019-11-11 15:36] VITALS: BP 130/73
--- NOTE | 2019-11-11 19:16 | NUR ---
NURSE NOTES: Received report from Nati LEAL. Rounding is done. Patient is a/o x4. No c/o pain at this time. No distress noted at this time. IV site is intact and iv fluid is running. Bed is on alarm, locked, and lowest position. Call light within reach. Will continue to monitor.
--- NOTE | 2019-11-11 19:26 | NUR ---
HAND-OFF: Report given to Nicole LEAL, pt in stable condition.
[2019-11-11 20:00] VITALS: BP 143/73
[2019-11-11] MEDS: Tamsulosin 0.4mg cap ORAL SCH (20:27)
[2019-11-12] VITALS: BP 158/84
[2019-11-12] MEDS: Morphine Sulfate 2mg/ml Inj(IV/IM USE ONLY) IVP PRN (03:32)
[2019-11-12 04:00] VITALS: BP 157/72
--- NOTE | 2019-11-12 04:45 | Progress Note ---
DATE: 11/11/2019 CARDIOLOGY PROGRESS NOTE SUBJECTIVE: The patient is extremely somnolent following sedation medication given before his MRI. He is interactive and verbal; however, was very short attention span. He continues to have left shoulder and arm pain. PHYSICAL EXAMINATION: VITAL SIGNS: Blood pressure 143/73, heart rate 76, respirations 19, afebrile. LUNGS: Clear. CARDIAC: Regular. Normal S1 and S2 with a fourth heart sound. ABDOMEN: Soft. EXTREMITIES: No edema. Left upper extremity with increased range of motion and pain to mobilization. LABORATORY DATA: Notable for troponin 0.67. TSH 1.1. Uric acid 5.7. CRP of 1.6. MRI of the shoulder reveals impingement syndrome, tear of the distal subscapularis tendon and biceps tendon. IMPRESSION: 1. Multiple tears of the right rotator cuff compartment with impingement syndrome and associated immobility and pain. 2. Chronic ischemic heart disease. 3. No signs of acute myocardial infarction. 4. Hypertensive heart disease. 5. Type 2 diabetes mellitus. 6. COPD with no active bronchospasm. PLAN: 1. Orthopedic evaluation. 2. Pain control. 3. Maintain antiplatelet, anti-lipid, and current antihypertensive/anti-anginal regimen without change. Amado Vargas M.D. DR: ZAIDA JOB#: [id number] CC:
[2019-11-12] MEDS: NovoLOG Insulin Flexpen SUBQ SCH (05:36)
--- NOTE | 2019-11-12 07:24 | NUR ---
HAND-OFF: Report given to Cruzito LEAL. Patient in stable condition.
--- NOTE | 2019-11-12 07:30 | NUR ---
NURSE NOTES: Handoff received from Nicole LEAL. Patient is awake and alert, no signs of distress noted, no reports of pain. Right forearm IV is intact and patent, running IVF as ordered. Patient was instructed to call RN when he needs to go to the bathroom/ambulate, patient verbally agreed. Side rails up x2, bed is low and locked, call light is within reach.
[2019-11-12 08:00] VITALS: BP 168/89
[2019-11-12 08:30] VITALS: BP 168/89
[2019-11-12] MEDS: Memantine 10mg tab ORAL SCH (08:30)
[2019-11-12] MEDS: Irbesartan 150mg tablet ORAL SCH (08:30)
[2019-11-12] MEDS: Lyrica 50mg cap ORAL SCH (08:31)
--- NOTE | 2019-11-12 09:16 | NUR ---
DISCHARGE PLANNING: LATE ENTRY CM SPOKE TO PATIENT AT LENGTH AT BEDSIDE CM ASKED IF PATIENT AND AGREEABLE TO [facility] PLACEMENT PATIENT STATE NO PATIENT HAS SEVERAL CAREGIVERS AT HOME PATIENT ALSO STATES NO HOME HEALTH WANTED D/T FEAR OF UNKNOWN PEOPLE IN HER HOME THAT MAY HAVE COVID CM INFORMED PATIENT TO HAVE CAREGIVER WEAR MASK AND WASH HANDS BEFORE CARE, PATIENT AWARE OF SAFETY PRECAUTIONS, BUT INSIST THAT NO HH OR SNF AT THIS TIME
--- NOTE | 2019-11-12 10:45 | NUR ---
Patient safely discharged from to home via [facility]. Patient was provided with patient information packet, his questions were answered, and he was educated about follow-up with primary care doctor. Belongings were verified and belongings list signed by patient. IV and ID wristband were removed. Patient accompanied by his .
--- NOTE | 2019-11-13 08:00 | Progress Note ---
DATE: 11/12/2019 INTERNAL MEDICINE AND CARDIOLOGY PROGRESS NOTE SUBJECTIVE: Shoulder pain slightly better with sling placed. Patient had abnormal MRI confirming several tears in the rotator cuff region. No chest pain or shortness of breath. PHYSICAL EXAMINATION: VITAL SIGNS: Blood pressure is slightly elevated at 157/72, heart rate 86, respiratory rate 19, afebrile. LUNGS: Clear. CARDIAC: Regular. Normal S1, S2 with a fourth heart sound. ABDOMEN: Soft. EXTREMITIES: No edema. Left in sling. IMPRESSION: 1. Rotator cuff tears. 2. Hypertensive heart disease. 3. Elevated blood pressure due to pain. 4. Chronic ischemic heart disease. 5. COPD. 6. Hypertensive heart disease. PLAN: 1. Outpatient orthopedic evaluation to be arranged. 2. Continue current medications. 3. Home health monitoring of blood pressure parameters and up-titration of antihypertensive regimen. 4. We will follow as needed once pain is fully controlled. 5. Pain regimen discussed with patient. Amado Vargas M.D. DR: ZAIDA JOB#: [id number] CC:
--- NOTE | 2019-11-14 09:06 | Discharge Summary ---
Discharge Summary Discharge Summary _ DATE OF ADMISSION: 11/09/2019 DATE OF DISCHARGE: 11/12/2019 DISCHARGED BY: Dr. Jackson REASON FOR ADMISSION: 84 years old male with multiple medical problems, including hypertensive heart disease, COPD, chronic kidney disease, diabetes mellitus, presented with complaints of severe left shoulder , left elbow and left wrist pain. Patient was in the office about a week ago , and noted to have worsening pain in the left shoulder, wrist and hand. Pain was felt to be likely musculoskeletal. MRI was planned to be arranged as outpatient. Patient experienced worsening pain, reported as severe. Oral medication were unable to control his pain , therefore patient was admitted to pain management and further diagnostic work-up. CONSULTANTS: [employer] [facility] COURSE: Patient admitted to medical surgical floor. Initial troponin minimally elevated 0.065 , repeated troponin 0.067. EKG revealed sinus rhythm no acute ischemic changes. Patient was on antiplatelet therapy Per [employer] patient had a chronic stable angina. No signs of acute coronary insufficiency , despite troponin elevation, which was likely chronic, possibly due to chronic kidney disease. Antihypertensive regimen was uptitrated. Home medications continued. X-ray of the left wrist revealed no evidence of acute osseous abnormality. Moderate to severe osteoporosis. X-ray of the left elbow revealed no evidence of acute osseous abnormality. MRI of left shoulder revealed impingement syndrome with degenerative hyperostosis of the AC joint and acromial spurring contributing to narrowing of the impingement space. Flattening of the greater tuberosity reflecting sequela of chronic micro-impingement. No definite acute tear tear of the supraspinatus or infraspinatus tendons to the extent visualized. Tear of the distal subscapularis tendon. Tear in the horizontal portion of the biceps tendon long head. Possible small tear of the posterior labrum. Management was addressed. Patient was working with a physical therapist. Outpatient orthopedic evaluation was arranged. Chest x-ray revealed chronic lung changes , possible atelectasis. Supplemental oxygen was on board as needed to keep pulse oximetry above 90%. Pulmonary toilet provided as needed. No evidence of acute bronchospasm. Blood sugar was managed with sliding scale of insulin. Blood sugar remained stable. Was controlled. Patient clinically stabilized and was ready for discharge home . FINAL DIAGNOSES: Multiply tears of the left rotator cuff compartment with impingement syndrome , with d associated immobility and pain Left shoulder pain ( due to above) Chronic back pain Hypertensive heart disease Ischemic heart disease Chronic stable angina COPD Diabetes mellitus Chronic kidney disease Blindness DISCHARGE MEDICATIONS: See Medication Reconciliation list. DISCHARGE INSTRUCTIONS: Patient was discharged home. Follow-up with a primary care provider and orthopedic surgeon as scheduled. I have been assigned to dictate discharge summary for this account. I was not involved in the patient's management. Shantell Evans NP Nov 14, 2019 09:06
== END 2019-11-12 11:08 | disposition home or self-care (01) | DRG 558 ==
LOC: 3E 13:28
DX: M75.101 Unspecified rotator cuff tear or rupture of right shoulder, not specified as traumatic (principal); M75.42 Impingement syndrome of left shoulder; M54.2 Cervicalgia; J44.9 Chronic obstructive pulmonary disease, unspecified; E11.9 Type 2 diabetes mellitus without complications; M19.90 Unspecified osteoarthritis, unspecified site; M81.0 Age-related osteoporosis without current pathological fracture; I11.9 Hypertensive heart disease without heart failure; I73.9 Peripheral vascular disease, unspecified; Z88.6 Allergy status to analgesic agent; I25.118 Atherosclerotic heart disease of native coronary artery with other forms of angina pectoris; F17.200 Nicotine dependence, unspecified, uncomplicated; G89.29 Other chronic pain; M54.9 Dorsalgia, unspecified; H54.7 Unspecified visual loss
CPT/HCPCS: 36415; 71045; 80053; 81001; 82962; 84443; 84484; 84550; 85025; 85651; 86140; 87086; 93005; J1815; J2405

== ENCOUNTER 2020-03-24 17:05 | Inpatient (IN) | payer MEDICARE, OTHER ==
[~2020-03-24] VITALS: Ht 167.6 cm; Wt 81.6 kg
[2020-03-24 18:00] VITALS: BP 158/82
--- NOTE | 2020-03-24 18:00 | NUR ---
NURSE NOTES: Patient received to unit as direct admit under Dr. Jackson. Patient awake, alert and oriented x4. Patient ambulating. Currently on room air, no s/sx of SOB/Distress, no c/o any pain or discomfort. Notified Dr. Jackson of patient's arrival. All admission orders noted and carried out. Med recon done.
[2020-03-24] MEDS ORDERED: Lactulose 20gm/30ml UDC ORAL PRN (19:00)
[2020-03-24] MEDS ORDERED: Vitamin D 1000 IU Tab ORAL SCH (19:00)
--- NOTE | 2020-03-24 19:25 | NUR ---
NURSE NOTES: Received report from ELVIS Camilo. AAO x 4, on room air, ambulatory. Able to make needs known. Denies any pain or discomfort. No acute distress noted. Bed locked, lowest position, alarm on, side rails up, call light within reach. Will continue to monitor.
[2020-03-24 20:00] VITALS: BP 158/64
--- NOTE | 2020-03-24 20:00 | NUR ---
NURSE HAND-OFF: Important Events on Shift:direct admit to unit Patient Status: stable Diet: reg Pending Orders: n/a Pending Results/Labs:n/a Pending MD notification:n/a Latest Vital Signs: Temperature 97.5 , Pulse 65 , B/P 158 /82 , Respiratory Rate 18 , O2 SAT 96 , , O2 Flow Rate . Vital Sign Comment: stable Latest Villafana Fall Score: 20 Fall Risk: Safety Measures: Call light , Bed Alarm , Side Rails , Bed position . Fall Precautions: Report given to ELVIS Mckinney.
[2020-03-24] MEDS ORDERED: HYDROcodone/Acetamin 10/325 tab ORAL PRN (20:45)
[2020-03-24] MEDS ORDERED: Morphine Sulfate 2mg/ml Inj(IV/IM USE ONLY) IVP PRN (20:45)
[2020-03-24] MEDS: Tamsulosin 0.4mg cap ORAL SCH (20:47)
--- NOTE | 2020-03-24 21:45 | History and Physical Report ---
DATE OF ADMISSION: 03/24/2020 CHIEF COMPLAINT: Intractable pain. HISTORY OF PRESENT ILLNESS: Patient is an 84-year-old male, well known to me. He has a history of hypertensive heart disease, chronic kidney disease, diabetes, COPD who presented with complaints of intractable neck pain, nausea, and vomiting. Patient had 48 hours of inability to tolerate p.o. in addition to severe intractable neck pain. He began feeling increasingly weak and dizzy. He has failed to respond to oral antiemetics. Because of progressive and persistent dehydration, he is now admitted for further evaluation and care. PAST MEDICAL HISTORY: As above. PAST SURGICAL HISTORY: Includes prior neck surgery. CURRENT MEDICATIONS: Reconciled and reviewed. ALLERGIES: Include codeine. FAMILY HISTORY: Noncontributory. SOCIAL HISTORY: There is no known history of alcohol or drugs. Patient is a smoker. REVIEW OF SYSTEMS: GENERAL: No fevers or chills. HEENT: No headaches or visual changes. CARDIOPULMONARY: No chest pain or shortness of breath. GASTROINTESTINAL: Positive nausea, vomiting. No diarrhea. GENITOURINARY: No urgency or frequency. MUSCULOSKELETAL: No joint pain or swelling. NEUROLOGIC: No history of seizures. PHYSICAL EXAMINATION: VITAL SIGNS: Temperature 98 degrees, blood pressure 158/82, pulse of 65, respirations 20. GENERAL: Patient is well developed, no apparent distress. HEART: Regular rate and rhythm. LUNGS: Clear. ABDOMEN: Soft, nontender, nondistended. EXTREMITIES: No clubbing, cyanosis, or edema. LABORATORY DATA: Pending. ASSESSMENT: This is a pleasant 84-year-old male admitted with complaints of dehydration, nausea, and vomiting suspect secondary to gastroenteritis. PROBLEM LIST: 1. Dehydration. 2. Gastroenteritis. 3. Nausea, vomiting. 4. History of severe intractable neck pain due to degenerative disc disease. 5. Hypertension. 6. COPD. 7. Diabetes. 8. Chronic kidney disease. PLAN: Gentle hydration. Antiemetics. IV fluids. IV pain medications as needed. PT/OT evaluations to be obtained. Bill Jackson M.D. DR: JUNE JOB#: [id number] CC:
[2020-03-25] VITALS: BP 149/67
--- NOTE | 2020-03-25 03:30 | Consultation ---
DATE OF CONSULTATION: 03/24/2020 CARDIOLOGY CONSULTATION CONSULTING PHYSICIAN: Amado Vargas M.D. REQUESTING PHYSICIAN: Bill Jackson M.D. REASON: Neck pain in the setting of coronary atherosclerosis. HISTORY OF PRESENT ILLNESS: This 84-year-old male has a history of hypertensive heart disease and coronary atherosclerosis. He presented to the emergency room with intractable neck pain, nausea and vomiting. He has had prior abnormal myocardial perfusion scan. I have been asked to address possible association of his symptoms. The patient has been increasingly weak and dizzy. He has not been able to tolerate anti-emetics and has been weak and has not been able to take in adequate oral intake. The patient had a cardiac catheterization performed at [facility] several months ago that revealed non flow-limiting coronary disease. PAST MEDICAL HISTORY: COPD, hypertensive heart disease, coronary artery disease, chronic kidney disease, type 2 diabetes mellitus, degenerative disk disease. ALLERGIES: Codeine. MEDICATIONS: Reviewed and reconciled. FAMILY HISTORY: Noncontributory. SOCIAL HISTORY: Greater than 50-pack year smoker, currently smokes as well. No alcohol or substance abuse. Lives with his . REVIEW OF SYSTEMS: A 10-point review of systems performed, all pertinent data outlined above. PHYSICAL EXAMINATION: VITAL SIGNS: Blood pressure 158/82, pulse 65, respiratory rate 20, afebrile. HEENT: Male pattern balding. HEENT: Conjunctivae pink. Oropharynx clear. NECK: Supple. Jugular venous pressure normal. LUNGS: No wheezing or rales. CARDIAC: Regular rhythm and rate. Normal S1, S2 with a fourth heart sound. ABDOMEN: Soft, nontender. No guarding or rebound. EXTREMITIES: No edema. There is cervical spasm and trigger points bilaterally. LABORATORY DATA: Labs are pending. IMPRESSION: 1. Nausea, vomiting. 2. Dehydration, hypovolemia. 3. Degenerative disk disease with associated neck pain. 4. Coronary artery disease with recent cardiac catheterization as outlined above and no signs of acute coronary insufficiency. 5. COPD with continued nicotine addiction. 6. Diabetes mellitus with neuropathy and nephropathy. 7. Hypertensive heart disease with slight blood pressure elevation. PLAN: 1. IV fluid hydration. 2. IV anti-emetics. 3. Biliary ultrasound. 4. Antiplatelet therapy. 5. Hold statin drug until GI symptoms resolve. 6. Titrate antihypertensives. Amado Shine Vargas DR: AQUILES JOB#: [id number] CC:
[2020-03-25 04:00] VITALS: BP 117/70
--- NOTE | 2020-03-25 06:26 | NUR ---
NURSE HAND-OFF: Important Events on Shift:direct admission, vertigo, neck pain, nausea Patient Status: stable Diet: reg, renal Pending Orders: Pending Results/Labs: Pending MD notification: Latest Vital Signs: Temperature 98.2 , Pulse 67 , B/P 117 /70 , Respiratory Rate 18 , O2 SAT 98 , Room Air, O2 Flow Rate . Vital Sign Comment: [] Latest Villafana Fall Score: 20 Fall Risk: Low Risk Safety Measures: Call light Within Reach, Bed Alarm Zone 1, Side Rails Side Rails x2, Bed position Low and Locked. Fall Precautions: Yellow Socks Yellow Gown Door Sign Patient Fall Education Addendum: 03/25/20 at 0731 by ANGEL SIMMS RN RN HAND-OFF: Report given to Selena.
--- NOTE | 2020-03-25 07:38 | NUR ---
NURSE NOTES: Patient awake, alert x4; on room air, no sign of distress and shortness of breath; no sing of chest pain; IV LFA fluid running; Urinal within reach; side rails up x2, breaks engaged, bed at lowest position, call light within reach; will keep monitoring.
[2020-03-25 08:00] VITALS: BP 114/75
[2020-03-25] MEDS: Memantine 10mg tab ORAL SCH (09:24)
[2020-03-25] MEDS: Irbesartan 150mg tablet ORAL SCH (09:24)
[2020-03-25] MEDS: Lyrica 50mg cap ORAL SCH ×2 (09:25→17:39)
[2020-03-25 12:00] VITALS: BP 132/69
--- NOTE | 2020-03-25 14:20 | NUR ---
NURSE NOTES: Blood test for this morning got cancelled by lab. re entered orders. Chemical Lab Supervisor will come up to draw the blood.
[2020-03-25 14:40] LABS: EOSINOPHILS % (AUTO) 4.8 % (0.0-3.0); HEMATOCRIT 39.4 % (42.0-52.0); HEMOGLOBIN 12.9 G/DL (14.2-18.0); MEAN CORPUSCULAR VOLUME 95 FL (80-99); MONOCYTES % (AUTO) 12.4 % (1.0-10.0); NEUTROPHILS % (AUTO) 45.8 % (45.0-75.0); PLATELET COUNT 137 K/UL (150-450); RED BLOOD COUNT 4.13 M/UL (4.70-6.10); RED CELL DISTRIBUTION WIDTH 13.6 % (11.6-14.8); WHITE BLOOD COUNT 3.5 K/UL (4.8-10.8)
[2020-03-25 14:58] LABS: ALBUMIN 2.9 G/DL (3.4-5.0); BILIRUBIN,TOTAL 0.4 MG/DL (0.2-1.0); CALCIUM 8.2 MG/DL (8.5-10.1); CREATININE 1.9 MG/DL (0.55-1.30); POTASSIUM 4.2 MMOL/L (3.5-5.1)
--- NOTE | 2020-03-25 15:53 | General Progress Note ---
Subjective ROS Limited/Unobtainable: No Constitutional: Reports: malaise, weakness HEENT: Reports: no symptoms Cardiovascular: Reports: no symptoms Respiratory: Reports: no symptoms Gastrointestinal/Abdominal: Reports: nausea Genitourinary: Reports: no symptoms Neurologic/Psychiatric: Reports: weakness Endocrine: Reports: no symptoms Hematologic/Lymphatic: Reports: no symptoms Allergies: Coded Allergies: ACETAMINOPHEN (Verified Allergy, Severe, Shortness of Breath, 11/09/19) CODEINE (Unverified Allergy, Unknown, Shortness of Breath, 10/03/13) sob and hives HYDROCODONE (Unverified Allergy, Unknown, Shortness of Breath, 10/03/13) shortness of breath and hives All Systems: reviewed and negative except above Subjective c/o dizziness. no fever or chills. no new weakness. no nausea or vomiting. Objective Last 24 Hour Vital Signs Date Time Temp Pulse Resp B/P (MAP) Pulse Ox O2 Delivery O2 Flow Rate FiO2 03/25/20 12:00 98.0 68 19 132/69 (90) 98 03/25/20 09:24 114/75 03/25/20 09:24 68 114/75 03/25/20 09:00 Room Air 03/25/20 08:00 97.5 68 18 114/75 (88) 98 03/25/20 04:00 98.2 67 18 117/70 (86) 98 03/25/20 00:00 96.3 76 17 149/67 (94) 94 03/24/20 22:33 Room Air 03/24/20 21:00 Room Air 03/24/20 20:00 97.0 78 17 158/64 (95) 94 03/24/20 18:00 97.5 65 18 158/82 (107) 96 Intake and Output 03/24/20 03/25/20 19:00 07:00 Intake Total 315 ml Output Total 800 ml Balance -485 ml Intake Oral 240 ml IV Total 75 ml Output Urine Total 800 ml # Voids 2 Laboratory Tests 03/25/20 14:20: White Blood Count 3.5L, Red Blood Count 4.13L, Hemoglobin 12.9L, Hematocrit 39.4L, Mean Corpuscular Volume 95, Mean Corpuscular Hemoglobin 31.2H, Mean Corpuscular Hemoglobin Concent 32.8, Red Cell Distribution Width 13.6, Platelet Count 137L, Mean Platelet Volume 8.3, Neutrophils (%) (Auto) 45.8, Lymphocytes (%) (Auto) 36.0, Monocytes (%) (Auto) 12.4H, Eosinophils (%) (Auto) 4.8H, Basophils (%) (Auto) 1.0, Sodium Level 139, Potassium Level 4.2, Chloride Level 108H, Carbon Dioxide Level 24, Anion Gap 7, Blood Urea Nitrogen 27H, Creatinine 1.9H, Estimat Glomerular Filtration Rate 33.8, Glucose Level 121H, Hemoglobin A1c 6.4H, Calcium Level 8.2L, Total Bilirubin 0.4, Aspartate Amino Transf (AST/SGOT) 13L, Alanine Aminotransferase (ALT/SGPT) 13, Alkaline Phosphatase 78, Total Protein 5.7L, Albumin 2.9L, Globulin 2.8, Albumin/Globulin Ratio 1.0 Height (Feet): 5 Height (Inches): 6.00 Weight (Pounds): 180 General Appearance: WD/WN, alert, confused EENT: normal ENT inspection Neck: non-tender, normal alignment, supple Cardiovascular: normal peripheral pulses, normal rate Respiratory/Chest: chest wall non-tender, lungs clear Abdomen: normal bowel sounds, non tender, soft, no organomegaly Edema: no edema noted Arm (L), no edema noted Arm (R) Neurologic: music cataloguer II-XII grossly normal, alert, oriented x 3 Skin: normal pigmentation Assessment/Plan Problem List: (1) Renal failure ICD Codes: N19 - Unspecified kidney failure SNOMED: 47199888 (2) Dehydration ICD Codes: E86.0 - Dehydration SNOMED: 55438834 (3) COPD (chronic obstructive pulmonary disease) with emphysema ICD Codes: J43.8 - COPD (chronic obstructive pulmonary disease) with emphysema SNOMED: 00054793 (4) Diabetes mellitus ICD Codes: E11.9 - Diabetes mellitus SNOMED: 25159603 (5) Back pain ICD Codes: M54.9 - Back pain SNOMED: 680945144 (6) severe neck pain Status: stable, progressing Assessment/Plan: ivf pain rx consider head ct meclizine for dizziness. pt/ot eval cont cardiac rx dvt/stress ulcer prophylaxis will need snf Bill Jackson MD Mar 25, 2020 15:53
[2020-03-25 16:00] VITALS: BP 100/50
[2020-03-25] MEDS ORDERED: Meclizine 25mg tab ORAL PRN (16:00)
--- NOTE | 2020-03-25 16:20 | NUR ---
CASE MANAGEMENT:INITIAL REVIEW 84 YR OLD DIRECT ADMIT BY DR LAGUNAS CC;INTRACTABLE PAIN. NAUSEA. VOMITING. SI;DIZZINESS. DEHYDRATION. 96.3 78 18 158/82 94% ON RA WBC 3.5 RBC 4.13 PLT 137 BUN 27 CR 1.9 CA 8.2 ALB 2.9 IS;IVF NS FLOMAX PO NORVASC PO PROTONIX PO ADMITTED TO MED SURG MED SURG STATUS DCP;FROM HOME
--- NOTE | 2020-03-25 17:41 | Diagnostic Imaging Report ---
History: ABN LABS Exam: US RENAL Comparison: FINDINGS: The right kidney measures 9.5 x 5.9 x 6.1 cm. The left kidney measures 11.8 x 5.8 cm. No hydronephrosis. Bilateral renal cysts noted. No evidence of renal stone or perinephric edema identified. Bladder volume 74 cc. IMPRESSION: No hydronephrosis. Bilateral renal cysts noted. No evidence of renal stone or perinephric edema identified. Bladder volume 74 cc.
--- NOTE | 2020-03-25 19:06 | Cardiology Progress Note ---
Subjective DATE OF SERVICE: Mar 25, 2020 Still dizzy - worse with head turning and standing. Labs noted. Renal US unremarkable. Objective Last 24 Hour Vital Signs Date Time Temp Pulse Resp B/P (MAP) Pulse Ox O2 Delivery O2 Flow Rate FiO2 03/25/20 16:00 97.2 64 18 100/50 (67) 100 03/25/20 12:00 98.0 68 19 132/69 (90) 98 03/25/20 09:24 114/75 03/25/20 09:24 68 114/75 03/25/20 09:00 Room Air 03/25/20 08:00 97.5 68 18 114/75 (88) 98 03/25/20 04:00 98.2 67 18 117/70 (86) 98 03/25/20 00:00 96.3 76 17 149/67 (94) 94 03/24/20 22:33 Room Air 03/24/20 21:00 Room Air 03/24/20 20:00 97.0 78 17 158/64 (95) 94 ROS: unchanged from 03/24/20 HEENT: normal ENT inspection, other - no sinus tenderness LUNGS: lungs clear bilaterally CARDIAC: normal rate, regular rhythm, normal S1 and S2, gallop/S4 ABDOMEN: normal bowel sounds, non tender, soft, no organomegaly EXTREMITIES: normal range of motion, no calf tenderness, No edema Laboratory Tests Test 03/25/20 14:20 White Blood Count 3.5 K/UL (4.8-10.8) L Red Blood Count 4.13 M/UL (4.70-6.10) L Hemoglobin 12.9 G/DL (14.2-18.0) L Hematocrit 39.4 % (42.0-52.0) L Mean Corpuscular Volume 95 FL (80-99) Mean Corpuscular Hemoglobin 31.2 PG (27.0-31.0) H Mean Corpuscular Hemoglobin Concent 32.8 G/DL (32.0-36.0) Red Cell Distribution Width 13.6 % (11.6-14.8) Platelet Count 137 K/UL (150-450) L Mean Platelet Volume 8.3 FL (6.5-10.1) Neutrophils (%) (Auto) 45.8 % (45.0-75.0) Lymphocytes (%) (Auto) 36.0 % (20.0-45.0) Monocytes (%) (Auto) 12.4 % (1.0-10.0) H Eosinophils (%) (Auto) 4.8 % (0.0-3.0) H Basophils (%) (Auto) 1.0 % (0.0-2.0) Sodium Level 139 MMOL/L (136-145) Potassium Level 4.2 MMOL/L (3.5-5.1) Chloride Level 108 MMOL/L (98-107) H Carbon Dioxide Level 24 MMOL/L (21-32) Anion Gap 7 mmol/L (5-15) Blood Urea Nitrogen 27 mg/dL (7-18) H Creatinine 1.9 MG/DL (0.55-1.30) H Estimat Glomerular Filtration Rate 33.8 mL/min (>60) Glucose Level 121 MG/DL (74-106) H Hemoglobin A1c 6.4 % (4.3-6.0) H Calcium Level 8.2 MG/DL (8.5-10.1) L Total Bilirubin 0.4 MG/DL (0.2-1.0) Aspartate Amino Transf (AST/SGOT) 13 U/L (15-37) L Alanine Aminotransferase (ALT/SGPT) 13 U/L (12-78) Alkaline Phosphatase 78 U/L (46-116) Total Protein 5.7 G/DL (6.4-8.2) L Albumin 2.9 G/DL (3.4-5.0) L Globulin 2.8 g/dL Albumin/Globulin Ratio 1.0 (1.0-2.7) Assessment/Plan Assessment/Plan Dizziness likely due to mild hypovolemia and dehydration with possible component of BPPV. Stable angina Non-flow limiting CAD COPD Hypertension/HHD with CKD BPH NIDDM with neuropathy Additional IVF Resp Rx Monitor orthostatics PT/OT Maintain antiplt therapy, statin, and cautious antiHTN regimen Amado Vargas MD Mar 25, 2020 19:06
--- NOTE | 2020-03-25 19:10 | NUR ---
NURSE NOTES: RECEIVED PATIENT FROM ELVIS PRICE. PATIENT IS STABLE. BED IS LOCKED AND LOW, BED ALARMS ACTIVE, SIDE RAILS UPX2 AND CALL LIGHT IS WITHIN REACH. WILL CONTINUE TO MONITOR.
--- NOTE | 2020-03-25 19:18 | NUR ---
HAND-OFF: Report given to ELVIS Gambino. Pateint resting, stable at this time; plan of care endorsed to the incoming nurse;
[2020-03-25 20:00] VITALS: BP 139/64
[2020-03-25] MEDS: Tamsulosin 0.4mg cap ORAL SCH (21:51)
[2020-03-26] VITALS (7 sets, daily range): BP systolic 116–140; BP diastolic 53–75
--- NOTE | 2020-03-26 06:51 | NUR ---
NURSE HAND-OFF: Important Events on Shift: Stable, no acute event Patient Status: Stable Diet: Regular/Renal Pending Orders: N/A Pending Results/Labs: N/A Pending MD notification: N/A Latest Vital Signs: Temperature 98.1 , Pulse 83 , B/P 126 /65 , Respiratory Rate 17 , O2 SAT 98 , Room Air, O2 Flow Rate . Vital Sign Comment: STABLE Latest Villafana Fall Score: 20 Fall Risk: Low Risk Safety Measures: Call light Within Reach, Bed Alarm Zone 1, Side Rails Side Rails x2, Bed position Low and Locked. Fall Precautions: Yellow Socks Yellow Gown Door Sign Patient Fall Education
--- NOTE | 2020-03-26 07:05 | NUR ---
NURSE NOTES: Received patient awake alert and oriented x 4,sitting at the edge of the bed,eating breakfast ,denies denies any pain or discomfort at this time, IVF patent and infusing well,on fall precaution, bed in lowest position with breaks engaged and alarm on, both side rails up for safety . Call light within reach. will continue to monitor patient condition lai armas
--- NOTE | 2020-03-26 07:43 | NUR ---
HAND-OFF: Report given to ELVIS Johnson.
[2020-03-26] MEDS: Lyrica 50mg cap ORAL SCH ×2 (08:09→17:26)
[2020-03-26] MEDS: Memantine 10mg tab ORAL SCH (08:10)
[2020-03-26] MEDS: Irbesartan 150mg tablet ORAL SCH (08:11)
--- NOTE | 2020-03-26 15:48 | General Progress Note ---
Subjective Allergies: Coded Allergies: ACETAMINOPHEN (Verified Allergy, Severe, Shortness of Breath, 11/09/19) CODEINE (Unverified Allergy, Unknown, Shortness of Breath, 10/03/13) sob and hives HYDROCODONE (Unverified Allergy, Unknown, Shortness of Breath, 10/03/13) shortness of breath and hives Subjective c/o dizziness. no fever or chills. no new weakness. no nausea or vomiting. severe headaches and neck pain. Objective Last 24 Hour Vital Signs Date Time Temp Pulse Resp B/P (MAP) Pulse Ox O2 Delivery O2 Flow Rate FiO2 03/26/20 13:30 97.5 75 18 116/54 (74) 98 03/26/20 12:00 97.5 75 18 116/54 (74) 98 03/26/20 08:11 125/71 03/26/20 08:10 78 125/71 03/26/20 08:02 98.1 78 18 125/71 (89) 98 03/26/20 08:00 Room Air 03/26/20 04:00 98.1 83 17 126/65 (85) 98 03/26/20 00:00 98.2 69 17 118/53 (74) 96 03/25/20 21:00 Room Air 03/25/20 20:00 97.8 66 18 139/64 (89) 96 03/25/20 16:00 97.2 64 18 100/50 (67) 100 Intake and Output 03/25/20 03/26/20 19:00 07:00 Intake Total 1600 ml 1531 ml Output Total 1000 ml Balance 1600 ml 531 ml Intake Oral 900 ml IV Total 700 ml 1231 ml Other 300 ml Output Urine Total 1000 ml # Voids 4 Height (Feet): 5 Height (Inches): 6.00 Weight (Pounds): 180 General Appearance: WD/WN, alert, mild distress EENT: PERRL/EOMI, normal ENT inspection Neck: non-tender, normal alignment, supple Cardiovascular: normal peripheral pulses Respiratory/Chest: chest wall non-tender, lungs clear, normal breath sounds Abdomen: normal bowel sounds, non tender, soft, no organomegaly Edema: no edema noted Arm (L), no edema noted Arm (R) 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 normal, no motor/sensory deficits, abnormal gait, alert Skin: normal pigmentation Assessment/Plan Problem List: (1) Renal failure ICD Codes: N19 - Unspecified kidney failure SNOMED: 06665198 (2) Dehydration ICD Codes: E86.0 - Dehydration SNOMED: 24910116 (3) COPD (chronic obstructive pulmonary disease) with emphysema ICD Codes: J43.8 - COPD (chronic obstructive pulmonary disease) with emphysema SNOMED: 18199548 (4) Diabetes mellitus ICD Codes: E11.9 - Diabetes mellitus SNOMED: 09592333 (5) Back pain ICD Codes: M54.9 - Back pain SNOMED: 132624797 (6) severe neck pain Status: stable, progressing Assessment/Plan: ivf pain rx consider head ct meclizine for dizziness. pt/ot eval cont cardiac rx dvt/stress ulcer prophylaxis repeat labs in am dc planning tomorrow will need snf Bill Jackson MD Mar 26, 2020 15:48
--- NOTE | 2020-03-26 16:52 | NUR ---
DISCHARGE PLANNING PATIENT HAS BEEN REFERRED TO [facility] P [phone] F [phone]
--- NOTE | 2020-03-26 18:48 | NUR ---
NURSE HAND-OFF: Important Events on Shift:[pain management,penile dressing changed ] Patient Status: [no change] Diet: [regular diet poor po intake] Pending Orders: labs in am Pending Results/Labs:[no] Pending MD notification:[no] Latest Vital Signs: Temperature 97.8 , Pulse 75 , B/P 140 /75 , Respiratory Rate 18 , O2 SAT 98 , Room Air, O2 Flow Rate . Vital Sign Comment: [stable] Latest Villafana Fall Score: 20 Fall Risk: Low Risk Safety Measures: Call light Within Reach, Bed Alarm Zone 1, Side Rails Side Rails x2, Bed position Low and Locked. Fall Precautions: Yellow Socks Yellow Gown Door Sign Patient Fall Education Report given to [NOC ]. Addendum: 03/26/20 at 1850 by SEEMA SANDOVAL RN RN WRONG PATIENT Addendum: 03/26/20 at 1940 by SEEMA SANDOVAL RN RN NURSE HAND-OFF: Important Events on Shift:[none ] Patient Status: [improving] Diet: [regular diet ] Pending Orders: labs in am Pending Results/Labs:[no] Pending MD notification:[no] Latest Vital Signs: Temperature 97.8 , Pulse 75 , B/P 140 /75 , Respiratory Rate 18 , O2 SAT 98 , Room Air, O2 Flow Rate . Vital Sign Comment: [stable] Latest Villafana Fall Score: 20 Fall Risk: Low Risk Safety Measures: Call light Within Reach, Bed Alarm Zone 1, Side Rails Side Rails x2, Bed position Low and Locked. Fall Precautions: Yellow Socks Yellow Gown Door Sign Patient Fall Education report given to MS Montes RN Sara armas rn
--- NOTE | 2020-03-26 19:42 | NUR ---
NURSE HAND-OFF: Important Events on Shift:[none ] Patient Status: [improving] Diet: [regular diet ] Pending Orders: labs in am Pending Results/Labs:[no] Pending MD notification:[no] Latest Vital Signs: Temperature 97.8 , Pulse 75 , B/P 140 /75 , Respiratory Rate 18 , O2 SAT 98 , Room Air, O2 Flow Rate . Vital Sign Comment: [stable] Latest Villafana Fall Score: 20 Fall Risk: Low Risk Safety Measures: Call light Within Reach, Bed Alarm Zone 1, Side Rails Side Rails x2, Bed position Low and Locked. Fall Precautions: Yellow Socks Yellow Gown Door Sign Patient Fall Education covid 19 specimen sent to lab report given to ELVIS Tee rn
--- NOTE | 2020-03-26 19:45 | NUR ---
NURSE NOTES: Patient sitting in bed, awake and able to make needs known. On room air with no signs of distress or SOB. IV intact and running IVF as ordered. Bed locked and in lowest position. Bed alarm on. Will continue plan of care.
[2020-03-26] MEDS: Tamsulosin 0.4mg cap ORAL SCH (20:43)
[2020-03-27] VITALS: BP 113/56
[2020-03-27 04:00] VITALS: BP 134/72
[2020-03-27] MEDS: Lactulose 20gm/30ml UDC ORAL PRN ×2 (04:24→04:29)
[2020-03-27 06:55] LABS: CALCIUM 8.2 MG/DL (8.5-10.1); CREATININE 2.2 MG/DL (0.55-1.30); POTASSIUM 4.3 MMOL/L (3.5-5.1)
--- NOTE | 2020-03-27 07:18 | NUR ---
NURSE HAND-OFF: Important Events on Shift: Lactulose given Patient Status: Stable Diet: Reg/renal Pending Orders: N/A Pending Results/Labs: BMP Pending MD notification: N/A Latest Vital Signs: Temperature 97.7 , Pulse 71 , B/P 134 /72 , Respiratory Rate 18 , O2 SAT 96 , Room Air, O2 Flow Rate . Vital Sign Comment: N/A Latest Villafana Fall Score: 20 Fall Risk: Low Risk Safety Measures: Call light Within Reach, Bed Alarm Zone 1, Side Rails Side Rails x2, Bed position Low and Locked. Fall Precautions: Yellow Socks Yellow Gown Door Sign Patient Fall Education Report given to ELVIS Norris
[2020-03-27 08:03] VITALS: BP 141/76
[2020-03-27] MEDS: Memantine 10mg tab ORAL SCH (08:07)
[2020-03-27] MEDS: Irbesartan 150mg tablet ORAL SCH (08:08)
[2020-03-27] MEDS: Lyrica 50mg cap ORAL SCH (08:08)
--- NOTE | 2020-03-27 12:00 | NUR ---
DISCHARGE PLANNING S/W ANGIE AT [facility]. PATIENT ACCEPTED FOR ADMISSION. BED ASSIGNMENT OF 101-A SKILLED BLS TRANSPORTATION SCHEDULED WITH [facility] EXT 8855 WITH ETA @ 1430 PER GEE
[2020-03-27 12:04] VITALS: BP 138/63
--- NOTE | 2020-03-27 13:50 | NUR ---
ROTARY DRIER OPERATOR NOTE CALL RECEIVED FROM [facility] TO REPORT THAT PATIENTS ARE REFUSING TRANSFER TO SNF BY AMBULANCE. CM S/W PATIENT AT BEDSIDE AND INFORMED OF PROTOCOL TO TRANSFER FROM HOSPITAL TO FACILITY BY AMBULANCE. PATIENT ADAMANTLY DECLINED STATING HE CAN GO BY [facility] OR [facility]. DR LAGUNAS INFORMED OF PATIENT REFUSING AMBULANCE TRANSPORT AND PREFERENCE OF [facility] FOR TRANSPORTATION. PER DR LAGUNAS, OK TRANSFER BY [facility] AT PATIENTS EXPENSE.
--- NOTE | 2020-03-27 14:24 | NUR ---
NURSE NOTES Discharge to SNF rehab obtained, [facility],patient agreed with the plan of care, report given to Sandra LEAL receiving nurse accordingly , Patient declined to use the ambulance for discharge to SNF,patient prefer to take the [facility], CM made aware, Kamla spoke to Mihir still refused to take [facility],Patient called the [facility] private car waiting for the transportation 1445 discharged in stable condition with all belongings taken accompanied by , wheeled by 2 ANALYTICAL TECHNICIAN to the parking area, discharge via REX CASILLAS RN
--- NOTE | 2020-03-27 21:00 | Discharge Summary ---
DATE OF ADMISSION: 03/24/2020 DATE OF DISCHARGE: 03/27/2020 ADMISSION DIAGNOSES: 1. Vertigo. 2. Dehydration. 3. COPD. 4. Hypertension. 5. Acute on chronic renal failure. DISCHARGE DIAGNOSES: 1. Vertigo. 2. Dehydration. 3. COPD. 4. Hypertension. 5. Acute on chronic renal failure. HOSPITAL COURSE: The patient was admitted with complaints of severe dizziness. He was diagnosed with dehydration. He received IV fluids and antiemetics as well as meclizine for dizziness. Symptoms improved with gentle hydration. He did have severe back pain and neck pain, which is chronic, requiring IV morphine. On discharge, he was stable, but unsteady and requested placement in a fpc facility for therapy. DISCHARGE MEDICATIONS: Please see discharge medication list for discharge medications. DIET: Cardiac diet. ACTIVITIES: Ad-devang. FOLLOWUP: The patient will follow-up in 1 to 2 days at the fpc facility. Bill Jackson M.D. DR: JUNIOR JOB#: [id number] CC:
[2020-03-29] MEDS ORDERED: Vitamin D 50,000 units cap ORAL SCH (09:00)
== END 2020-03-27 14:20 | DRG 641 ==
LOC: 4E 17:19
DX: E86.0 Dehydration (principal); N17.9 Acute kidney failure, unspecified; K52.9 Noninfective gastroenteritis and colitis, unspecified; I13.10 Hypertensive heart and chronic kidney disease without heart failure, with stage 1 through stage 4 chronic kidney disease, or unspecified chronic kidney disease; N18.9 Chronic kidney disease, unspecified; J44.9 Chronic obstructive pulmonary disease, unspecified; Z88.6 Allergy status to analgesic agent; E11.22 Type 2 diabetes mellitus with diabetic chronic kidney disease; R42 Dizziness and giddiness; M50.30 Other cervical disc degeneration, unspecified cervical region; F17.200 Nicotine dependence, unspecified, uncomplicated; I25.118 Atherosclerotic heart disease of native coronary artery with other forms of angina pectoris; N40.0 Benign prostatic hyperplasia without lower urinary tract symptoms; E11.40 Type 2 diabetes mellitus with diabetic neuropathy, unspecified; M54.9 Dorsalgia, unspecified
CPT/HCPCS: 36415; 76770; 80048; 80053; 83036; 85025; J2405; U0002